=== PATIENT | female | born 1930 | race Caucasian/White ===

== ENCOUNTER 2016-11-09 15:54 | Inpatient (IN) | payer MEDICARE, BC ==
[2016-11-09] MEDS ORDERED: Sodium Chloride 0.9% 1,000 ML IV ONE (16:09)
[2016-11-09] MEDS ORDERED: Sodium Chloride 0.9% 1,000 ML IV SCH (17:45)
[2016-11-09] MEDS ORDERED: Morphine 2 MG/ML Syringe IVPUSH ONE (18:07)
[2016-11-09] MEDS ORDERED: Potassium Chloride 20 MEQ Tab.ER PO ONE (18:07)
[2016-11-09] MEDS ORDERED: Furosemide 40 MG/4 ML VIAL IVPUSH STA (18:11)
--- NOTE | 2016-11-09 19:19 | EDM.PDOC ---
ED HPI GI/ABDOMINAL - General Chief Complaint: Abdominal Pain Stated Complaint: INFECTION Time Seen by Provider: 11/09/16 15:55 Source: Reports: Patient, Family History Limitations: Reports: Physical impairment, Other (abd.pain) - History of Present Illness INITIAL COMMENTS - FREE TEXT/NARRATIVE: 86 years old w f came the ed due to sudden onset of abdominal pain, located at her mid R abdomen. Pt was seen in the clinic and was sent to the ED because her WBC was elevated. Pt is a poor historian. She has an essential tremor, which was diagnosed a year ago. She as diarrhea with loose stool in the past few days. 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 Symptom Onset Date: 11/09/16 Symptom Onset Time: 08:00 Timing/Duration: Reports: Hour(s): Location: RLQ Quality: Reports: ache, burning, cramping Severity: moderate Improves with: Reports: lying down Worsens with: Reports: urinating, palpation Context: Reports: other (unknown) Associated Symptoms (-Female): Reports: diarrhea, fever/chills, loss of appetite, malaise - Related Data Allergies/ADRs: Allergies Allergy/AdvReac Type Severity Reaction Status Date / Time allopurinol Allergy Anaphylactic Verified 11/09/16 16:36 Shock atorvastatin calcium Allergy Bronchospas Verified 11/09/16 16:36 [From Lipitor] ms cyclobenzaprine HCl Allergy Cannot Verified 11/09/16 16:36 [From Flexeril] Remember doxycycline Allergy Cannot Verified 11/09/16 16:36 Remember indomethacin Allergy Hives Verified 11/09/16 16:36 lisinopril Allergy Hives Verified 11/09/16 16:36 medium chain triglycerides AdvReac Unknown Cannot Verified 11/09/16 16:36 [From Lipisorb] Remember nutritional AdvReac Unknown Cannot Verified 11/09/16 16:36 supplement,special form Remember [From Lipisorb] Home Meds: Home Meds Furosemide [Lasix] 20 mg PO DAILY 12/09/14 [History] Hypromellose [Artificial Tears] 1 drop OP DAILY PRN 12/09/14 [History] Levothyroxine [Synthroid] 50 mcg PO ACBREAKFAST 12/09/14 [History] Metoprolol Succinate [Toprol Xl] 100 mg PO DAILY 12/09/14 [History] Ondansetron [Zofran ODT] 4 mg PO TID PRN 12/09/14 [History] Pantoprazole [Protonix] 40 mg PO 0600 #30 tab.cr 12/12/14 [Rx] Metoclopramide [Reglan] 5 mg PO DAILY PRN 05/13/15 [History] Aspirin [Halfprin] 81 mg PO DAILY 05/14/15 [History] Furosemide [Lasix] 20 mg PO DAILY PRN 11/10/16 [History] Uric Acid Complex 1 cap PO DAILY 11/10/16 [History] Past Medical History HEENT History: Reports: Impaired vision Cardiovascular History: Reports: High cholesterol [employer]PER History: Reports: Endocrine/Metabolic History: Reports: Hyperthyroidism Social & Family History - Tobacco Use Smoking Status *Q: Never Smoker Years of Tobacco use: 30 Used Tobacco, but Quit: Yes Month Tobacco Last Used: Aug Second Hand Smoke Exposure: Yes - Caffeine Use Caffeine Use: Reports: Coffee, Tea - Alcohol Use Days Per Week of Alcohol Use: 1 Number of Drinks Per Day: 1 Total Drinks Per Week: 1 - Recreational Drug Use Recreational Drug Use: No ED ROS GENERAL - Review of Systems Review Of Systems: Unable To Obtain ED EXAM, GI/ABD - Physical Exam Exam: See Below Exam Limited By: Physical impairment General Appearance: alert, WD/WN, moderate distress Eyes: bilateral: normal appearance Ears: normal external exam, normal canal, hearing grossly normal Nose: normal inspection, normal mucosa, no blood Throat/Mouth: Normal lips, Other (dry mucosal membrane) Head: atraumatic, normocephalic Neck: normal inspection, supple, non-tender Respiratory/Chest: no respiratory distress, lungs clear, normal breath sounds, no accessory muscle use, chest non-tender Cardiovascular: normal peripheral pulses, regular rate, rhythm, no edema GI/Abdominal: tenderness (R ant abd.), guarding (Female) Exam: Deferred Rectal (Female) Exam: Deferred Back Exam: normal inspection, full range of motion Extremities: normal inspection Neurological: alert, oriented, CN II-XII intact Psychiatric: normal affect, normal mood Skin Exam: Warm, Dry, Intact EKG INTERPRETATION EKG Date: 11/09/16 Time: 19:30 Rhythm: NSR Rate (beats/min): 91 Beeler: LAD-left axis deviation P-wave: present QRS: wide ST-T: normal QT: normal Comparison: NA - no prior EKG EKG Interpretation Comments: ventricular paced rhythm Course - Vital Signs Text/Narrative:: 86 years old w f came the ed due to sudden onset of abdominal pain, located at her mid R abdomen. Pt was seen in the clinic and was sent to the ED because her WBC was elevated. No cough. No SOB. Pt is a poor historian. She has an essential tremor, which was diagnosed a year ago. She as diarrhea with loose stool in the past few days. 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 PE: Abd, pain to R ant abd. Essential tremor, Dehydration. Labs: UTI, WBC 33K Lactic acid 3.5 Imaging: Please see reprot above Impression: Dehydration, Leucocytosis, UTI, abd. pain, septic picture (urosepsis ) Tx: NS, Abx (levoquin and Vaco), Morphine sulfate, Reexam: Improved Consultation: Dr. Gonzalez accepted the pt for admission Last Recorded V/S: Last Vital Signs Temp 36.8 C 11/10/16 08:40 Pulse 89 11/10/16 11:21 Resp 18 11/10/16 08:40 BP 146/67 H 11/10/16 11:21 Pulse Ox 96 11/10/16 08:40 - Orders/Labs/Meds Orders: Active Orders 24 hr Category Date Time Status Sodium Chloride 0.9% [Normal Saline] 1,000 ml Med 11/09/16 17:45 Active IV ASDIRECTED Medication Orders Sodium Chloride (Normal Saline) 1,000 mls @ 999 mls/hr IV ASDIRECTED [facility] Last Admin: 11/09/16 17:15 Dose: 999 mls/hr Sodium Chloride (Normal Saline) 250 mls @ 100 mls/hr IV ASDIRECTED [facility] Last Admin: 11/09/16 19:46 Dose: 100 mls/hr Sodium Chloride (Normal Saline) 1,000 mls @ 125 mls/hr IV ASDIRECTED [facility] Last Admin: 11/10/16 05:25 Dose: 125 mls/hr Infusion: 11/10/16 05:02 Dose: 125 mls/hr Admin: 11/09/16 21:02 Dose: 125 mls/hr Levofloxacin/Dextrose 250 mg/ (Premix) 50 mls @ 50 mls/hr IV Q24H [facility] Ketorolac Tromethamine (Toradol) 15 mg IVPUSH Q6H PRN PRN Reason: Abdominal Pain Stop: 11/15/16 09:49 Levothyroxine Sodium (Synthroid) 50 mcg PO 0600 [facility] Last Admin: 11/10/16 11:21 Dose: 50 mcg Metoprolol Succinate (Toprol Xl) 100 mg PO DAILY [facility] Last Admin: 11/10/16 11:21 Dose: 100 mg Morphine Sulfate (Morphine) 1 mg IVPUSH Q2H PRN PRN Reason: Pain (severe 7-10) Last Admin: 11/10/16 05:44 Dose: 1 mg Admin: 11/10/16 01:57 Dose: 1 mg Non-Formulary Medication (Hypromellose [Artificial Tears]) 1 drop OP DAILY PRN PRN Reason: dry eyes Ondansetron HCl (Zofran) 4 mg IV Q4H PRN PRN Reason: Nausea/Vomiting Last Admin: 11/10/16 08:37 Dose: 4 mg Pantoprazole Sodium (Protonix) 40 mg PO 0600 [facility] Last Admin: 11/10/16 11:21 Dose: 40 mg Sodium Chloride (Saline Flush) 10 ml FLUSH ASDIRECTED PRN PRN Reason: Keep Vein Open Labs: Laboratory Tests 11/09/16 11/09/16 11/09/16 Range/Units 16:25 16:25 16:25 WBC 33.0 H* (4.5-12.0) X10-3/uL RBC 3.80 (3.23-5.20) x10(6)uL Hgb 11.6 (11.5-15.5) g/dL Hct 34.1 (30.0-51.3) % MCV 90.0 (80-96) fL MCH 30.6 (27.7-33.6) pg MCHC 34.0 (32.2-35.4) g/dL RDW 13.5 (11.5-15.5) % Plt Count 156 (125-369) X10(3)uL MPV 10.0 (7.4-10.4) fL Add Manual Diff Yes Neutrophils % (Manual) 90 H (46-82) % Band Neutrophils % 2 (0-6) % Lymphocytes % (Manual) 7 L (13-37) % Monocytes % (Manual) 1 L (4-12) % PT 11.6 H (8.7-11.1) INR 1.15 H (0.89-1.13) Sodium 130 L D (135-145) mmol/L Potassium 3.2 L (3.5-5.3) mmol/L Chloride 95 L D (100-110) mmol/L Carbon Dioxide 23 (23-29) mmol/L BUN 36 H (8-23) mg/dL Creatinine 1.9 H (0.6-1.3) mg/dL Est Cr Clr Drug Dosing 7.81 mL/min Estimated GFR (MDRD) 25 L (>60) BUN/Creatinine Ratio 18.9 (9-20) Glucose 141 H (80-116) mg/dL Lactic Acid (0.5-2.2) mmol/L Calcium 8.6 (8.6-10.2) mg/dL Total Bilirubin 1.2 (0.1-1.3) mg/dL Direct Bilirubin 0.3 H (0.1-0.2) mg/dL AST 27 D (5-27) IU/L ALT 12 L D (14-26) IU/L Alkaline Phosphatase 62 (56-112) IU/L B-Natriuretic Peptide (0-100) pg/mL Total Protein 6.4 (6.0-8.0) g/dL Albumin 3.7 (3.2-4.6) g/dL Amylase 46 (28-100) U/L Urine Color (YELLOW) Urine Appearance (CLEAR) Urine pH (5.0-6.5) Ur Specific [place] (1.010-1.025) Urine Protein (NEGATIVE) mg/dL Urine Glucose (UA) (NEGATIVE) mg/dL Urine Ketones (NEGATIVE) mg/dL Urine Occult Blood (NEGATIVE) Urine Nitrite (NEGATIVE) Urine Bilirubin (NEGATIVE) Urine Urobilinogen (NEGATIVE) mg/dL Ur Leukocyte Esterase (NEGATIVE) Urine RBC (0) Urine WBC (0) Ur Squamous Epith Cells (NS,R,O) Urine Bacteria (NS) 11/09/16 11/09/16 11/09/16 Range/Units 16:25 18:05 18:30 WBC (4.5-12.0) X10-3/uL RBC (3.23-5.20) x10(6)uL Hgb (11.5-15.5) g/dL Hct (30.0-51.3) % MCV (80-96) fL MCH (27.7-33.6) pg MCHC (32.2-35.4) g/dL RDW (11.5-15.5) % Plt Count (125-369) X10(3)uL MPV (7.4-10.4) fL Add Manual Diff Neutrophils % (Manual) (46-82) % Band Neutrophils % (0-6) % Lymphocytes % (Manual) (13-37) % Monocytes % (Manual) (4-12) % PT (8.7-11.1) INR (0.89-1.13) Sodium (135-145) mmol/L Potassium (3.5-5.3) mmol/L Chloride (100-110) mmol/L Carbon Dioxide (23-29) mmol/L BUN (8-23) mg/dL Creatinine (0.6-1.3) mg/dL Est Cr Clr Drug Dosing mL/min Estimated GFR (MDRD) (>60) BUN/Creatinine Ratio (9-20) Glucose (80-116) mg/dL Lactic Acid 3.5 H (0.5-2.2) mmol/L Calcium (8.6-10.2) mg/dL Total Bilirubin (0.1-1.3) mg/dL Direct Bilirubin (0.1-0.2) mg/dL AST (5-27) IU/L ALT (14-26) IU/L Alkaline Phosphatase (56-112) IU/L B-Natriuretic Peptide 277 H (0-100) pg/mL Total Protein (6.0-8.0) g/dL Albumin (3.2-4.6) g/dL Amylase (28-100) U/L Urine Color Yellow (YELLOW) Urine Appearance Slightly cloudy (CLEAR) Urine pH 5.0 (5.0-6.5) Ur Specific [place] 1.005 L (1.010-1.025) Urine Protein Negative (NEGATIVE) mg/dL Urine Glucose (UA) Normal (NEGATIVE) mg/dL Urine Ketones Negative (NEGATIVE) mg/dL Urine Occult Blood Negative (NEGATIVE) Urine Nitrite Negative (NEGATIVE) Urine Bilirubin Negative (NEGATIVE) Urine Urobilinogen Normal (NEGATIVE) mg/dL Ur Leukocyte Esterase Moderate H (NEGATIVE) Urine RBC 0-5 (0) Urine WBC 5-10 (0) Ur Squamous Epith Cells Few H (NS,R,O) Urine Bacteria Few H (NS) Meds: Medications Generic Name Dose Route Start Last Admin Trade Name Hawkq PRN Reason Stop Dose Admin Sodium Chloride 1,000 mls @ 999 mls/hr 11/09/16 17:45 11/09/16 17:15 Normal Saline IV 999 mls/hr ASDIRECTED RENZO Administration Sodium Chloride 250 mls @ 100 mls/hr 11/09/16 19:45 11/09/16 19:46 Normal Saline IV 100 mls/hr ASDIRECTED RENZO Administration Sodium Chloride 1,000 mls @ 125 mls/hr 11/09/16 19:45 11/10/16 05:25 Normal Saline IV 125 mls/hr ASDIRECTED RENZO Administration Levofloxacin/Dextrose 250 mg/ 50 mls @ 50 mls/hr 11/10/16 20:00 Premix IV Q24H RENZO Ketorolac Tromethamine 15 mg 11/10/16 09:49 Toradol IVPUSH 11/15/16 09:49 Q6H PRN Abdominal Pain Levothyroxine Sodium 50 mcg 11/10/16 10:30 11/10/16 11:21 Synthroid PO 50 mcg 0600 RENZO Administration Metoprolol Succinate 100 mg 11/10/16 10:30 11/10/16 11:21 Toprol Xl PO 100 mg DAILY RENZO Administration Morphine Sulfate 1 mg 11/09/16 19:39 11/10/16 05:44 Morphine IVPUSH 1 mg Q2H PRN Administration Pain (severe 7-10) Non-Formulary Medication 1 drop 11/10/16 09:51 Hypromellose [Artificial Tears] OP DAILY PRN dry eyes Ondansetron HCl 4 mg 11/09/16 19:39 11/10/16 08:37 Zofran IV 4 mg Q4H PRN Administration Nausea/Vomiting Pantoprazole Sodium 40 mg 11/10/16 10:30 11/10/16 11:21 Protonix PO 40 mg 0600 RENZO Administration Sodium Chloride 10 ml 11/09/16 19:39 Saline Flush FLUSH ASDIRECTED PRN Keep Vein Open Discontinued Medications Generic Name Dose Route Start Last Admin Trade Name Isaiah PRN Reason Stop Dose Admin Furosemide 20 mg 11/09/16 18:11 11/09/16 18:21 Lasix IVPUSH 11/09/16 18:12 20 mg DAILY STA Administration Sodium Chloride 1,000 mls @ 999 mls/hr 11/09/16 16:09 11/09/16 17:39 Normal Saline IV 11/09/16 17:09 Not Given .BOLUS ONE Levofloxacin/Dextrose 500 mg/ 100 mls @ 100 mls/hr 11/09/16 19:45 11/09/16 19 :49 Premix IV 100 mls/hr Q24H RENZO Administration Vancomycin HCl 1 gm/ Sodium 250 mls @ 167 mls/hr 11/09/16 20:00 11/09/16 21: 03 Chloride IV 11/09/16 21:29 167 mls/hr ONETIME ONE Administration Ceftriaxone Sodium 1,000 mg/ 50 mls @ 200 mls/hr 11/10/16 10:00 11/10/16 11: 07 Sodium Chloride IV Not Given Q24H RENZO Morphine Sulfate 2 mg 11/09/16 18:07 11/09/16 18:17 Morphine IVPUSH 11/09/16 18:08 2 mg ONETIME ONE Administration Omeprazole 40 mg 11/10/16 10:00 Omeprazole PO 0600 RENZO Omeprazole 40 mg 11/10/16 10:00 Omeprazole PO 0600 RENZO Potassium Chloride 40 meq 11/09/16 18:07 11/09/16 18:24 Klor-Con M20 PO 11/09/16 18:08 40 meq ONETIME ONE Administration Vancomycin HCl Confirm 11/09/16 20:58 11/09/16 21:13 Vancocin Administered 11/09/16 20:59 Not Given Dose 1 gm .ROUTE .STK-MED ONE Departure - Departure Time of Disposition: 23:00 Disposition: Admitted As Inpatient 67 Condition: fair Clinical Impression: UTI (urinary tract infection) Qualifiers: Urinary tract infection type: acute cystitis Hematuria presence: without hematuria Qualified Code(s): N30.00 - Acute cystitis without hematuria Sepsis Qualifiers: Sepsis type: sepsis due to unspecified organism Qualified Code(s): A41.9 - Sepsis, unspecified organism Abdominal pain Qualifiers: Abdominal location: right upper quadrant Qualified Code(s): R10.11 - Right upper quadrant pain - My Orders Last 24 Hours: My Active Orders 11/09/16 17:45 Sodium Chloride 0.9% [Normal Saline] 1,000 ml IV ASDIRECTED - Assessment/Plan Last 24 Hours: My Active Orders 11/09/16 17:45 Sodium Chloride 0.9% [Normal Saline] 1,000 ml IV ASDIRECTED
[2016-11-09] MEDS ORDERED: Ondansetron 4 MG/2 ML SDV IV PRN (19:39)
[2016-11-09] MEDS ORDERED: Sodium Chloride 0.9% 10 ML Syringe FLUSH PRN (19:39)
[2016-11-09] MEDS ORDERED: Sodium Chloride 0.9% 250 ML IV SCH (19:45)
[2016-11-09] MEDS ORDERED: Levofloxacin/Dextrose 5%-Water 500 MG in Premix Bag 1 BAG IV SCH (19:45)
[2016-11-09] MEDS: Sodium Chloride 0.9% 1,000 ML IV SCH (21:02)
[2016-11-09] MEDS: Vancomycin 1 GM AdvVial ONE ×2 (21:03→21:13)
[2016-11-10] MEDS: Morphine 2 MG/ML Syringe IVPUSH PRN ×2 (01:57→05:44)
[2016-11-10] MEDS: Sodium Chloride 0.9% 1,000 ML IV SCH (05:25)
--- NOTE | 2016-11-10 08:53 | PCM.HP ---
H&P History of Present Illness - General Date of Service: 11/10/16 Admit Problem/Dx: Admission Diagnosis/Problem Admission Diagnosis/Problem Abdominal pain - History of Present Illness Initial Comments - Free Text/Narative: 86-year-old female admitted from the clinic yesterday because of abdominal pain. Pain started 2-3 days ago from the right flank and upper quadrant. As stated the nausea but with no radiation. In the clinic she was noted to be slightly dehydrated with worsening creatinine function at 1.9 from 1.5 baseline. She also had a white cell count of 30,000. A CT done showed possible colitis. She is admitted for pain control and rehydration. This morning she was some improvement of her symptoms but still has nausea. She denies that G. dysuria or frequency of urination diarrhea or constipation. She has a history of hypertension, A. fib, hypothyroidism previously stable. RLQ Pain Score (Numeric/FACES): 1 RUQ abdomen Pain Score (Numeric/FACES): 2 - Related Data Allergies/Adverse Reactions: Allergies Allergy/AdvReac Type Severity Reaction Status Date / Time allopurinol Allergy Anaphylactic Verified 11/09/16 16:36 Shock atorvastatin calcium Allergy Bronchospas Verified 11/09/16 16:36 [From Lipitor] ms cyclobenzaprine HCl Allergy Cannot Verified 11/09/16 16:36 [From Flexeril] Remember doxycycline Allergy Cannot Verified 11/09/16 16:36 Remember indomethacin Allergy Hives Verified 11/09/16 16:36 lisinopril Allergy Hives Verified 11/09/16 16:36 medium chain triglycerides AdvReac Unknown Cannot Verified 11/09/16 16:36 [From Lipisorb] Remember nutritional AdvReac Unknown Cannot Verified 11/09/16 16:36 supplement,special form Remember [From Lipisorb] Home Medications: Home Meds Furosemide [Lasix] 20 mg PO DAILY 12/09/14 [History] Hypromellose [Artificial Tears] 1 drop OP DAILY PRN 12/09/14 [History] Levothyroxine [Synthroid] 50 mcg PO ACBREAKFAST 12/09/14 [History] Metoprolol Succinate [Toprol Xl] 100 mg PO DAILY 12/09/14 [History] Ondansetron [Zofran ODT] 4 mg PO TID PRN 12/09/14 [History] Pantoprazole [Protonix] 40 mg PO 0600 #30 tab.cr 12/12/14 [Rx] Metoclopramide [Reglan] 5 mg PO DAILY PRN 05/13/15 [History] Aspirin [Halfprin] 81 mg PO DAILY 05/14/15 [History] Furosemide [Lasix] 20 mg PO DAILY PRN 11/10/16 [History] Uric Acid Complex 1 cap PO DAILY 11/10/16 [History] Past Medical History HEENT History: Reports: Impaired vision 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 Cardiovascular History: Reports: High cholesterol Respiratory History: Reports: Pneumonia, recurrent Gastrointestinal History: Reports: Colon polyp, Other (see below) Other Gastrointestinal History: COLON SURGERY FOR RUPTURED POLOP- HAD TO STRETCH COLON WHERE HAD SURGERY HAD X3 Genitourinary History: Reports: Pyelonephritis, UTI, recurrent 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: Musculoskeletal History: Reports: Arthritis, Back pain, chronic, Gout Neurological History: Reports: Concussion, Head trauma Endocrine/Metabolic History: Reports: Hyperthyroidism Dermatologic History: Reports: None - Infectious Disease History Infectious Disease History: Reports: Other (see below) Other Infectious Disease History: PATIENT IS UNSURE - Past Surgical History HEENT Surgical History: Reports: Adenoidectomy, Cataract surgery, Detached retina, Tonsillectomy, Other (see below) Other HEENT Surgeries/Procedures: STONE REMOVED FROM GLAND IN NECK Cardiovascular Surgical History: Reports: Pacer Respiratory Surgical History: Reports: None GI Surgical History: Reports: Appendectomy, Cholecystectomy, Colon, Colonoscopy , Lysis of adhesions Female Surgical History: Reports: Hysterectomy, Salpingo-oophorectomy Endocrine Surgical History: Reports: None Neurological Surgical History: Reports: None Musculoskeletal Surgical History: Reports: None Dermatological Surgical History: Reports: None Social & Family History - Family History Musculoskeletal: Reports: None Psychiatric: Reports: Schizophrenia Hematologic: Reports: None Oncologic: Reports: Leukemia - Tobacco Use Smoking Status *Q: Never Smoker Years of Tobacco use: 30 Packs/Tins Daily: 1 Used Tobacco, but Quit: Yes Month Tobacco Last Used: Aug Second Hand Smoke Exposure: Yes - Caffeine Use Caffeine Use: Reports: Coffee, Tea - Alcohol Use Days Per Week of Alcohol Use: 1 Number of Drinks Per Day: 1 Total Drinks Per Week: 1 - Recreational Drug Use Recreational Drug Use: No H&P Review of Systems - Review of Systems: Review Of Systems: ROS reveals no pertinent complaints other than HPI. Exam - Exam Exam: See Below - Vital Signs Vital Signs: Last Vital Signs Temp 98.3 F 11/10/16 08:40 Pulse 89 11/10/16 08:40 Resp 18 11/10/16 08:40 BP 143/67 H 11/10/16 08:40 Pulse Ox 96 11/10/16 08:40 Weight: 70.035 kg - Exam General: alert, oriented, 4 HEENT: PERRLA, Hearing intact, Mucosa moist & pink, Nares patent, Normal nasal septum, Posterior pharynx clear, Conjunctiva clear, EOMI, EACs clear, TMs clear Neck: supple, trachea midline, 2 Lungs: Clear to auscultation, Normal respiratory effort Cardiovascular: regular rate, regular rhythm Abdomen: tenderness (Right lumbar region) (Female) Exam: Deferred Rectal (Female) Exam: Deferred Back Exam: normal inspection, full range of motion, NT Extremities: 3, normal inspection, 10 Skin: warm, dry, intact Neurological: cranial nerves intact, reflexes equal bilateral Neuro Extensive - Mental Status: alert, oriented x3, normal mood/affect, normal cognition Neuro Extensive - Motor, Sensory, Reflexes: CN II-XII intact, normal gait, normal reflexes Psychiatric: alert, normal affect, normal mood - Patient Data Result Diagrams: 11/10/16 09:10 11/10/16 09:10 Tuan Results last 24 hrs: Microbiology 11/09/16 19:45 Anaerobic Blood Culture - Final Blood - Venous - Lab Draw *Q Meaningful Use (ADM) - VTE *Q VTE Criteria *Q: - Stroke *Q Stroke Criteria *Q: - AMI *Q AMI Criteria *Q: - Problem List (1) Abdominal pain SNOMED Code(s): 80145585 ICD Code: R10.9 - UNSPECIFIED ABDOMINAL PAIN Status: Acute Current Visit : Yes Qualifiers: Abdominal location: right upper quadrant Qualified Code(s): R10.11 - Right upper quadrant pain (2) Bacteria in urine SNOMED Code(s): 85081143 ICD Code: R82.71 - BACTERIURIA Status: Acute Current Visit: Yes (3) Nausea SNOMED Code(s): 536924423 ICD Code: R11.0 - NAUSEA Status: Acute Current Visit: Yes (4) Colitis SNOMED Code(s): 077601539 ICD Code: K52.9 - NONINFECTIVE GASTROENTERITIS AND COLITIS, UNSPECIFIED Status: Acute Current Visit: Yes (5) HTN (hypertension) SNOMED Code(s): 90136300 ICD Code: I10 - ESSENTIAL (PRIMARY) HYPERTENSION Status: Chronic Current Visit: Yes Qualifiers: Hypertension type: essential hypertension Qualified Code(s): I10 - Essential (primary) hypertension (6) Afib SNOMED Code(s): 82833985 ICD Code: I48.91 - UNSPECIFIED ATRIAL FIBRILLATION Status: Chronic Current Visit: Yes Qualifiers: Atrial fibrillation type: chronic Qualified Code(s): I48.2 - Chronic atrial fibrillation Problem List Initiated/Reviewed/Updated: Yes Orders Last 24hrs: Active Orders 24 hr Category Date Time Status Patient Status [ADT] Routine ADT 11/09/16 19:39 Active Oxygen Therapy [RC] PRN Care 11/09/16 19:39 Active Up With Assistance [RC] ASDIRECTED Care 11/09/16 19:39 Active VTE/DVT Education [RC] Per Unit Routine Care 11/09/16 19:39 Active Vital Signs [RC] 00,04,08,12,16,20 Care 11/09/16 19:39 Active CULTURE BLOOD [BC] Urgent Lab 11/09/16 18:05 Results CULTURE BLOOD [BC] Urgent Lab 11/09/16 19:45 Results Levofloxacin/Dextrose 5%-Water [Levaquin in D5W 500 MG/ Med 11/09/16 19:45 Active 100 ML] 500 mg Premix Bag 1 bag IV Q24H Morphine Med 11/09/16 19:39 Active 1 mg IVPUSH Q2H PRN Ondansetron [Zofran] Med 11/09/16 19:39 Active 4 mg IV Q4H PRN Sodium Chloride 0.9% [Normal Saline] 1,000 ml Med 11/09/16 19:45 Active IV ASDIRECTED Sodium Chloride 0.9% [Normal Saline] 250 ml Med 11/09/16 19:45 Active IV ASDIRECTED Sodium Chloride 0.9% [Saline Flush] Med 11/09/16 19:39 Active 10 ml FLUSH ASDIRECTED PRN Blood Culture x2 Reflex Set [OM.PC] Urgent Oth 11/09/16 19:27 Ordered Peripheral IV Insertion Adult [OM.PC] Routine Oth 11/09/16 19:39 Ordered Resuscitation Status Routine Resus Stat 11/09/16 19:39 Ordered EKG 12 Lead [EK] Routine Ther 11/09/16 19:20 Ordered Medication Orders Sodium Chloride (Normal Saline) 1,000 mls @ 999 mls/hr IV ASDIRECTED [facility] Last Admin: 11/09/16 17:15 Dose: 999 mls/hr Levofloxacin/Dextrose 500 mg/ (Premix) 100 mls @ 100 mls/hr IV Q24H RENZO Last Admin: 11/09/16 19:49 Dose: 100 mls/hr Sodium Chloride (Normal Saline) 250 mls @ 100 mls/hr IV ASDIRECTED [facility] Last Admin: 11/09/16 19:46 Dose: 100 mls/hr Sodium Chloride (Normal Saline) 1,000 mls @ 125 mls/hr IV ASDIRECTED [facility] Last Admin: 11/10/16 05:25 Dose: 125 mls/hr Infusion: 11/10/16 05:02 Dose: 125 mls/hr Admin: 11/09/16 21:02 Dose: 125 mls/hr Morphine Sulfate (Morphine) 1 mg IVPUSH Q2H PRN PRN Reason: Pain (severe 7-10) Last Admin: 11/10/16 05:44 Dose: 1 mg Admin: 11/10/16 01:57 Dose: 1 mg Ondansetron HCl (Zofran) 4 mg IV Q4H PRN PRN Reason: Nausea/Vomiting Last Admin: 11/10/16 08:37 Dose: 4 mg Sodium Chloride (Saline Flush) 10 ml FLUSH ASDIRECTED PRN PRN Reason: Keep Vein Open Assessment/Plan Comment:: I will continue with gentle IV fluid fluid resuscitation. A white count is down to 24,000, which is slightly improved 1.6. After noon I will stop the IV fluids ,but we'll continue Zofran when necessary ketorolac IV as needed for pain and encourage her to eat and drink. I will give her Rocephin for the bacteria rule out pyelonepritis, and repeat some labs in morning possibly discharge and then
[2016-11-10] MEDS ORDERED: Ketorolac 15 MG/ML SDV IVPUSH PRN (09:49)
[2016-11-10] MEDS ORDERED: HYPROMELLOSE OP PRN (09:51)
[2016-11-10] MEDS ORDERED: Omeprazole 20 MG Cap.CR PO SCH (10:00)
[2016-11-10] MEDS ORDERED: Omeprazole 40 MG Cap.CR PO SCH (10:00)
[2016-11-10] MEDS ORDERED: cefTRIAXone 1,000 MG in Sodium Chloride 0.9% 50 ML IV SCH (10:00)
[2016-11-10] MEDS ORDERED: Metoprolol Succinate 100 MG Tab.ER PO SCH (10:30)
[2016-11-10] MEDS: Levothyroxine 50 MCG Tab PO SCH (11:21)
[2016-11-10] MEDS: Pantoprazole 40 MG Tab.CR PO SCH (11:21)
[2016-11-10] MEDS ORDERED: Polyvinyl Alcohol 1.4% Ophth Soln 15 ML Bottle EYEBOTH PRN (13:39)
[2016-11-10] MEDS ORDERED: Levofloxacin/Dextrose 5%-Water 250 MG in Premix Bag 1 BAG IV SCH (20:00)
[2016-11-10] MEDS ORDERED: Acetaminophen 325 MG Tab PO PRN (22:20)
[2016-11-11] MEDS: Pantoprazole 40 MG Tab.CR PO SCH (06:31)
[2016-11-11] MEDS: Levothyroxine 50 MCG Tab PO SCH (06:32)
--- NOTE | 2016-11-11 07:16 | PN ---
DATE SEEN: 11/11/2016 CHIEF COMPLAINT: Abdominal pain. HISTORY OF PRESENT ILLNESS: This is an 86-year-old female who was brought in yesterday because of abdominal pain. She slept well overnight. The pain has improved. She has no fever or cough. No urinary symptoms and nausea has also improved. REVIEW OF SYSTEMS: All other systems unremarkable. SOCIAL HISTORY: Lives alone. PHYSICAL EXAMINATION: VITAL SIGNS: Temperature 98.4, blood pressure is 112/55. ENT: Negative. CHEST: Clear. ABDOMEN: Soft with no tenderness to palpation. LABORATORY DATA: Pending. FINAL IMPRESSION: 1. Abdominal pain due to colitis. 2. Bacteriuria. 3. Acute on chronic renal failure. 4. Hypertension. 5. Atrial fibrillation. PLAN: My plan is to discharge her home today. I will let her go home on 250 mg of Levaquin to complete a course of 7 days. Follow up with PCP on Tuesday. Return to the ED or here with any worsening symptoms. /[id number] CHANDA/SAJAN
[2016-11-11 08:42] VITALS: BP 131/77
--- NOTE | 2016-11-11 23:34 | DISCH ---
DISCHARGE DATE: 11/11/2016 REASON FOR VISIT: 1. Colitis. 2. Urinary tract infection. 3. Hypertension. 4. Renal failure. DISCHARGE DIAGNOSES: 1. Colitis. 2. Bacteriuria. 3. Hypertension. 4. Acute on chronic renal failure. 5. History of atrial fibrillation. BRIEF HISTORY AND HOSPITAL COURSE: An 86-year-old female, seen at the clinic with fever, leukocytosis, and bacteria in the urine. She presented with no urinary symptoms, but had abdominal pain on the right upper quadrant. CT showed some colitis, but nothing else was significant. She stated that she had cholecystectomy before. She was given IV fluids, creatinine improved, she was also started on Levaquin 250 mg a day. That seemed to help her symptoms. Zofran was used symptomatically and she is ready to go home today. DISCHARGE MEDICATIONS: 1. Levaquin 250 mg daily for 5 days. 2. Levothyroxine 50 mcg daily. 3. Metoprolol 100 mg daily. 4. Acetaminophen p.r.n. 5. Pantoprazole 40 mg a day. FOLLOW UP: To see Dr. Rahman next week on Tuesday, return to the ED with any worsening symptoms. I spent more than 35 minutes in discharge of the patient. /[id number] CHANDA/SAJAN
== END 2016-11-11 10:00 | disposition home or self-care (01) | DRG 392 ==
LOC: FB.ED 15:54 → FB.MS 19:09 → OBSVTOIN 11-10 12:43
PROVIDERS: ADMIT Emergency Medicine; ATTEND Family Medicine
DX: K52.9 Noninfective gastroenteritis and colitis, unspecified (principal); N17.9 Acute kidney failure, unspecified; R82.71 Bacteriuria; I12.9 Hypertensive chronic kidney disease with stage 1 through stage 4 chronic kidney disease, or unspecified chronic kidney disease; E03.9 Hypothyroidism, unspecified; G25.0 Essential tremor; Z87.891 Personal history of nicotine dependence; I48.91 Unspecified atrial fibrillation; N18.9 Chronic kidney disease, unspecified; E86.0 Dehydration; M10.9 Gout, unspecified; M19.90 Unspecified osteoarthritis, unspecified site; M54.9 Dorsalgia, unspecified; G89.29 Other chronic pain; Z87.440 Personal history of urinary (tract) infections; Z87.01 Personal history of pneumonia (recurrent); H54.7 Unspecified visual loss; Z79.82 Long term (current) use of aspirin; Z88.8 Allergy status to other drugs, medicaments and biological substances; E78.00 Pure hypercholesterolemia, unspecified; H54.42 Blindness, left eye, normal vision right eye; K43.9 Ventral hernia without obstruction or gangrene; Z90.710 Acquired absence of both cervix and uterus; Z90.49 Acquired absence of other specified parts of digestive tract; Z98.890 Other specified postprocedural states; I71.4 Abdominal aortic aneurysm, without rupture
CPT/HCPCS: 36415 ×2; 74176; 80048 ×2; 80076; 81001; 82150; 83605; 83880; 85025 ×2; 85610; 87040 ×2; 93005; 96361 ×3; 96365; 96375 ×3; 96376; 99284; A9270 ×4; G0378 ×2; J1940; J1956; J2270 ×3; J2405; J3370; J7040 ×3; J7050 ×2; 80053; 96374; 99285

== ENCOUNTER 2019-03-15 07:24 | Day surgery (SDC) | payer MEDICARE, BC ==
[2019-03-15] MEDS ORDERED: Lidocaine 1% PF 2 ML SDV INJECT ONE (07:25)
[2019-03-15] MEDS ORDERED: Acetaminophen 1,000 MG/100 ML Infusion Bottle IV ONE (07:25)
[2019-03-15] MEDS ORDERED: Propofol 200 MG/20 ML SDV IV ONE (07:25)
[2019-03-15] MEDS ORDERED: Lactated Ringers 1,000 ML IV SCH (07:30)
--- NOTE | 2019-03-15 09:32 | PCM.OPNOTE ---
- General Post-Op/Procedure Note Date of Surgery/Procedure: 03/15/19 Operative Procedure(s): Colonoscopy Findings: Melanosis Coli Pre Op Diagnosis: Rectal pain, change in bowel habits Post-Op Diagnosis: Same Anesthesia Technique: MAC Primary Surgeon: Shantanu Curtis Complications: None Condition: Good
--- NOTE | 2019-03-15 09:33 | PCM.HPR ---
H & P Addendum review - H & P Addendum Review Date of Original H & P: 03/13/19 Date Reviewed: 03/15/19 Time Reviewed: 09:00 Patient was Examined: No Changes
[2019-03-15 09:42] VITALS: PULSE 78
[2019-03-15 12:50] VITALS: BP 118/78
--- NOTE | 2019-03-15 14:02 | OR ---
DATE OF OPERATION: 03/15/2019 SURGEON: Shantanu Curtis MD PREOPERATIVE DIAGNOSES: 1. Rectal pain. 2. Change in bowel habits. 3. 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 PROCEDURE: Colonoscopy. ANESTHESIA: IV sedation. PROCEDURE IN DETAIL: The patient was brought to the procedure room, where she was placed on her left side and IV sedation administered. Digital rectal exam was performed, which was normal. The colonoscope was inserted and advanced to the level of the cecum without difficulty. Cecal position was confirmed by identifying the appendiceal lumen and ileocecal valve. Prep was good and surfaces were well visualized. 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 All segments of the colon and rectum otherwise appeared normal. Anastomosis appears normal and there was no stricture present. No source of the patient's pain was identified. The patient tolerated the procedure well and returned to recovery in stable condition. No further colon evaluation is necessary. /[id number] ROOPA/SAJAN
== END 2019-03-15 10:57 | disposition home or self-care (01) ==
LOC: FB.SDS 07:24
PROVIDERS: ATTEND Surgery
DX: K62.89 Other specified diseases of anus and rectum (principal); K63.89 Other specified diseases of intestine; K59.09 Other constipation; I10 Essential (primary) hypertension; I25.10 Atherosclerotic heart disease of native coronary artery without angina pectoris; I48.91 Unspecified atrial fibrillation; I47.1 Supraventricular tachycardia; K21.9 Gastro-esophageal reflux disease without esophagitis; M19.90 Unspecified osteoarthritis, unspecified site; E07.9 Disorder of thyroid, unspecified; Z90.49 Acquired absence of other specified parts of digestive tract; Z87.19 Personal history of other diseases of the digestive system; Z87.891 Personal history of nicotine dependence; Z88.1 Allergy status to other antibiotic agents; Z88.8 Allergy status to other drugs, medicaments and biological substances; Z79.01 Long term (current) use of anticoagulants; Z79.890 Hormone replacement therapy; Z79.899 Other long term (current) drug therapy
CPT/HCPCS: 00811; 45378; J0131; J2001; J2704; J7120

== ENCOUNTER 2019-04-28 19:26 | Emergency (ER) | payer MEDICARE, BC ==
--- NOTE | 2019-04-28 19:44 | EDM.PDOC ---
ED HPI GENERAL MEDICAL PROBLEM - General Chief Complaint: Respiratory Problem Stated Complaint: low 02 sat at [facility] this pm Time Seen by Provider: 04/28/19 19:31 Source of Information: Reports: Patient, Family, Old Records History Limitations: Reports: No Limitations - History of Present Illness INITIAL COMMENTS - FREE TEXT/NARRATIVE: Neda is a resident of [facility] who was diagnosed with CAP yesterday at the Clinic. She was dispensed antibx and managed as an OP. This PM, reported fever to 103 deg F, and low 02 sats. There has been some productive coughing, but no smooth SOB. Upon arrival, temp 99.4 deg F and 02 sat 89% on RA. She does not endorse chest pain, SOB, fevers, chills or sweats. She has been med compliant. Patient is a poor historian. - Related Data Allergies Allergy/AdvReac Type Severity Reaction Status Date / Time allopurinol Allergy Anaphylactic Verified 03/15/19 07:56 Shock atorvastatin calcium Allergy Bronchospas Verified 03/15/19 07:56 [From Lipitor] ms cyclobenzaprine HCl Allergy Cannot Verified 03/15/19 07:56 [From Flexeril] Remember doxycycline Allergy Cannot Verified 03/15/19 07:56 Remember indomethacin Allergy Hives Verified 03/15/19 07:56 lisinopril Allergy Hives Verified 03/15/19 07:56 medium chain triglycerides AdvReac Unknown Cannot Verified 03/15/19 07:56 [From Lipisorb] Remember nutritional AdvReac Unknown Cannot Verified 03/15/19 07:56 supplement,special form Remember [From Lipisorb] Home Meds: Home Meds Levothyroxine [Synthroid] 50 mcg PO ACBREAKFAST 12/09/14 [History] Metoprolol Succinate [Toprol Xl] 100 mg PO DAILY 12/09/14 [History] Pantoprazole [ProTONIX] 40 mg PO 0600 #30 tab.cr 12/12/14 [Rx] Furosemide [Lasix] 20 mg PO DAILY 11/10/16 [History] Cholecalciferol (Vitamin D3) [Vitamin D3] 1 cap PO DAILY 03/14/19 [History] Cyanocobalamin (Vitamin B-12) [B-12] 1 tab PO DAILY 03/14/19 [History] Docusate Sodium [Stool Softener] 1 cap PO DAILY 03/14/19 [History] Febuxostat [Uloric] 1 tab PO DAILY 03/14/19 [History] Fluticasone Propionate [Flonase] 2 spray INH BID 03/14/19 [History] Morphine 1 tab PO BID 03/14/19 [History] Polyethylene Glycol 3350 [MiraLAX] 1 pack PO DAILY 03/14/19 [History] Polyvinyl Alcohol/Povidone [Artificial Tears Drops] 1 drop EYEBOTH BID 03/14/19 [History] Rivaroxaban [Xarelto] 1 tab PO DAILY 03/14/19 [History] fentaNYL [Duragesic] 1 patch TRDERM ASDIRECTED 03/14/19 [History] Past Medical History HEENT History: Reports: Impaired Vision 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 Cardiovascular History: Reports: Afib, CAD, High Cholesterol Respiratory History: Reports: Pneumonia, Recurrent Gastrointestinal History: Reports: Colon Polyp, Diverticulosis, Other (See Below ) Other Gastrointestinal History: COLON SURGERY FOR RUPTURED POLOP- HAD TO STRETCH COLON WHERE HAD SURGERY HAD X3 Genitourinary History: Reports: Pyelonephritis, UTI, Recurrent CONVEYANCER History: Reports: Musculoskeletal History: Reports: Arthritis, Back Pain, Chronic, Gout, Other ( See Below) Other Musculoskeletal History: RIGHT SCIATICA Neurological History: Reports: Concussion, Head Trauma Endocrine/Metabolic History: Reports: Hyperthyroidism Dermatologic History: Reports: None - Infectious Disease History Infectious Disease History: Reports: Other (See Below) Other Infectious Disease History: PATIENT IS UNSURE - Past Surgical History HEENT Surgical History: Reports: Adenoidectomy, Cataract Surgery, Detached Retina, Tonsillectomy, Other (See Below) Other HEENT Surgeries/Procedures: STONE REMOVED FROM GLAND IN NECK Cardiovascular Surgical History: Reports: Pacer Respiratory Surgical History: Reports: None GI Surgical History: Reports: Appendectomy, Cholecystectomy, Colon, Colonoscopy , Lysis of Adhesions Female Surgical History: Reports: Hysterectomy, Salpingo-Oophorectomy Endocrine Surgical History: Reports: None Neurological Surgical History: Reports: None Musculoskeletal Surgical History: Reports: None, ORIF, Other (See Below) Other Musculoskeletal Surgeries/Procedures:: R HIP FRACTURE ORIF Dermatological Surgical History: Reports: None Social & Family History - Family History Family Medical History: Noncontributory Musculoskeletal: Reports: None Psychiatric: Reports: Schizophrenia Hematologic: Reports: None Oncologic: Reports: Leukemia - Caffeine Use Caffeine Use: Reports: Coffee ED ROS GENERAL - Review of Systems Review Of Systems: Unable To Obtain ED EXAM, GENERAL - Physical Exam Exam: See Below Exam Limited By: Other (poor memory to recent events, chaparone did not accompany to Clinic visit) General Appearance: Alert, WD/WN, No Apparent Distress Eye Exam: Bilateral Eye: EOMI, Normal Inspection, PERRL Ears: Normal External Exam Nose: Normal Inspection Throat/Mouth: Normal Inspection, Normal Oropharynx Neck: Normal Inspection Respiratory/Chest: No Respiratory Distress, No Accessory Muscle Use, Chest Non- Tender, Rales (faint inspiratory L>R), Rhonchi (w cough) Cardiovascular: Regular Rate, Rhythm, No JVD, No Murmur GI/Abdominal: Normal Bowel Sounds, Soft, Non-Tender, No Organomegaly, No Distention, No Mass (Female) Exam: Deferred Rectal (Female) Exam: Deferred Back Exam: Normal Inspection Extremities: Normal Inspection Neurological: Alert, CN II-XII Intact, No Motor/Sensory Deficits, Memory Loss Recent Events Psychiatric: Normal Affect, Normal Mood Skin Exam: Warm, Dry, Intact, Normal Color Lymphatic: No Adenopathy Course - Vital Signs Text/Narrative:: I reviewed the chest x ray, noting no active infiltrates, heart normal size, pacemaker present. The CBC and BMP are baseline and satisfactory for age. A bronchitis is suspected. - Orders/Labs/Meds Orders: Active Orders 24 hr Category Date Time Status Chest 1V Frontal [CR] Stat Exams 04/28/19 19:38 Taken Labs: Laboratory Tests 04/28/19 04/28/19 Range/Units 19:50 19:50 WBC 10.9 (4.5-12.0) X10-3/uL RBC 3.79 (3.23-5.20) x10(6)uL Hgb 11.9 (11.5-15.5) g/dL Hct 34.7 (30.0-51.3) % MCV 91.5 (80-96) fL MCH 31.4 (27.7-33.6) pg MCHC 34.3 (32.2-35.4) g/dL RDW 13.3 (11.5-15.5) % Plt Count 152 (125-369) X10(3)uL MPV 9.4 (7.4-10.4) fL Neut % (Auto) 76.1 (46-82) % Lymph % (Auto) 12.6 L (13-37) % Pondera % (Auto) 8.8 (4-12) % Eos % (Auto) 2 (1.0-5.0) % Baso % (Auto) 1 (0-2) % Neut # (Auto) 8.2 (1.6-8.3) # Lymph # (Auto) 1.4 (0.6-5.0) # Pondera # (Auto) 1.0 (0.0-1.3) # Eos # (Auto) 0.2 (0.0-0.8) # Baso # (Auto) 0.1 (0.0-0.2) # Sodium 142 (135-145) mmol/L Potassium 3.4 L (3.5-5.3) mmol/L Chloride 102 (100-110) mmol/L Carbon Dioxide 29 (21-32) mmol/L BUN 22 H D (7-18) mg/dL Creatinine 1.8 H (0.55-1.02) mg/dL Est Cr Clr Drug Dosing TNP Estimated GFR (MDRD) 27 L (>60) BUN/Creatinine Ratio 12.2 (9-20) Glucose 98 (80-116) mg/dL Calcium 8.9 (8.6-10.2) mg/dL Departure - Departure Time of Disposition: 21:00 Disposition: Home, Self-Care 01 Condition: Fair Clinical Impression: Bronchitis - Discharge Information *PRESCRIPTION DRUG MONITORING PROGRAM REVIEWED*: Not Applicable *COPY OF PRESCRIPTION DRUG MONITORING REPORT IN PATIENT FOSTER: Not Applicable Referrals: PCP,None [Primary Care Provider] - Forms: ED Department Discharge - Problem List & Annotations (1) Bronchitis SNOMED Code(s): 97754944 Code(s): J40 - BRONCHITIS, NOT SPECIFIED ACUTE OR CHRONIC Status: Acute Current Visit: Yes Annotation/Comment:: No findings for pneumonia, bronchitis likely. She may finish out the Levaquin as directed. - Problem List Review Problem List Initiated/Reviewed/Updated: Yes - My Orders Last 24 Hours: My Active Orders 04/28/19 19:38 Chest 1V Frontal [CR] Stat - Assessment/Plan Last 24 Hours: My Active Orders 04/28/19 19:38 Chest 1V Frontal [CR] Stat Plan: Follow up with PCP if needed.
[2019-04-28 23:01] VITALS: BP 152/52; PULSE 66
--- NOTE | 2019-04-30 10:48 | CR ---
INDICATION: Chest congestion, CAP yesterday, borderline hypoxia. CHEST: AP portable upright view of the chest, 04/28/19, was compared with 05/16 and 12/09/14. An infiltrate compatible with pneumonia at the right lung base has resolved, compared with the previous study. Pulmonary markings are otherwise essentially unchanged and negative for definite active infiltrate or effusion. Allowing for the AP portable technique, the heart did not appear enlarged. The aorta is tortuous and calcified in the arch and descending portion. Bipolar pacemaker leads are unchanged in position. IMPRESSION: 1. No acute process. 2. Resolution of previous right basilar pneumonia. 3. ASHD. Heart size, however, appears to be fairly stable and probably normal. 4. Bipolar pacemaker leads unchanged in position. MTDD
== END 2019-04-28 21:10 | disposition home or self-care (01) ==
LOC: FB.ED 19:26
DX: J40 Bronchitis, not specified as acute or chronic (principal); E05.90 Thyrotoxicosis, unspecified without thyrotoxic crisis or storm; Z90.49 Acquired absence of other specified parts of digestive tract; Z90.722 Acquired absence of ovaries, bilateral; Z90.710 Acquired absence of both cervix and uterus; Z79.899 Other long term (current) drug therapy; Z91.048 Other nonmedicinal substance allergy status; Z88.8 Allergy status to other drugs, medicaments and biological substances; Z88.1 Allergy status to other antibiotic agents
CPT/HCPCS: 36415; 71045; 80048; 85025; 99284-25

== ENCOUNTER 2019-09-01 13:37 | Observation (INO) | payer MEDICARE, BC ==
[2019-09-01] MEDS ORDERED: HYDROmorphone 2 MG/ML SDV IVPUSH ONE (14:04)
[2019-09-01] MEDS ORDERED: Ondansetron 4 MG/2 ML SDV IVPUSH ONE (14:04)
--- NOTE | 2019-09-01 14:13 | EDM.PDOC ---
ED HPI GENERAL MEDICAL PROBLEM - General Chief Complaint: Abdominal Pain Stated Complaint: RT SIDE PAIN Time Seen by Provider: 09/01/19 14:08 Source of Information: Reports: Patient, Family History Limitations: Reports: No Limitations - History of Present Illness INITIAL COMMENTS - FREE TEXT/NARRATIVE: Developed RUQ and LUQ pain yesterday, RUQ pain is worse than LUQ pain. Had diarrhea yesterday, none today. Denies N/V. Patient had a transient episode of SOB, but no chest pain. Currently the patient is not short of breath. Past medical history includes Afib, pacemaker, and bowel obstruction. Past surgical history includes cholecystectomy, appendectomy, hysterectomy, and bowel resection. Patient has not eaten since yesterday, states she is not hungry. Onset Date: 08/31/19 Location: Reports: Abdomen Severity: Moderate right side abd Pain Score (Numeric/FACES): 8 - Related Data Allergies Allergy/AdvReac Type Severity Reaction Status Date / Time allopurinol Allergy Anaphylactic Verified 09/01/19 16:32 Shock atorvastatin calcium Allergy Bronchospas Verified 09/01/19 16:32 [From Lipitor] ms cyclobenzaprine HCl Allergy Cannot Verified 09/01/19 16:32 [From Flexeril] Remember doxycycline Allergy Cannot Verified 09/01/19 16:32 Remember indomethacin Allergy Hives Verified 09/01/19 16:32 lisinopril Allergy Hives Verified 09/01/19 16:32 medium chain triglycerides AdvReac Unknown Cannot Verified 09/01/19 16:32 [From Lipisorb] Remember nutritional AdvReac Unknown Cannot Verified 09/01/19 16:32 supplement,special form Remember [From Lipisorb] Home Meds: Home Meds Levothyroxine [Synthroid] 50 mcg PO ACBREAKFAST 12/09/14 [History] Metoprolol Succinate [Toprol Xl] 100 mg PO DAILY 12/09/14 [History] Pantoprazole [ProTONIX] 40 mg PO 0600 #30 tab.cr 12/12/14 [Rx] Furosemide [Lasix] 20 mg PO DAILY 11/10/16 [History] Cholecalciferol (Vitamin D3) [Vitamin D3] 1 cap PO DAILY 03/14/19 [History] Docusate Sodium [Stool Softener] 1 cap PO DAILY 03/14/19 [History] Febuxostat [Uloric] 1 tab PO DAILY 03/14/19 [History] Polyethylene Glycol 3350 [MiraLAX] 1 pack PO DAILY 03/14/19 [History] Rivaroxaban [Xarelto] 1 tab PO DAILY 03/14/19 [History] fentaNYL [Duragesic] 1 patch TRDERM ASDIRECTED 03/14/19 [History] Calcium Carbonate [Calcium] 500 mg PO DAILY 09/01/19 [History] Celecoxib [CeleBREX] 200 mg PO DAILY 09/01/19 [History] Past Medical History HEENT History: Reports: Impaired Vision 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 Cardiovascular History: Reports: Afib, CAD, High Cholesterol Respiratory History: Reports: Pneumonia, Recurrent Gastrointestinal History: Reports: Colon Polyp, Diverticulosis, Other (See Below ) Other Gastrointestinal History: COLON SURGERY FOR RUPTURED POLOP- HAD TO STRETCH COLON WHERE HAD SURGERY HAD X3 Genitourinary History: Reports: Pyelonephritis, UTI, Recurrent [employer] History: Reports: Musculoskeletal History: Reports: Arthritis, Back Pain, Chronic, Gout, Other ( See Below) Other Musculoskeletal History: RIGHT SCIATICA Neurological History: Reports: Concussion, Head Trauma Endocrine/Metabolic History: Reports: Hyperthyroidism Dermatologic History: Reports: None - Infectious Disease History Infectious Disease History: Reports: Other (See Below) Other Infectious Disease History: PATIENT IS UNSURE - Past Surgical History HEENT Surgical History: Reports: Adenoidectomy, Cataract Surgery, Detached Retina, Tonsillectomy, Other (See Below) Other HEENT Surgeries/Procedures: STONE REMOVED FROM GLAND IN NECK Cardiovascular Surgical History: Reports: Pacer Respiratory Surgical History: Reports: None GI Surgical History: Reports: Appendectomy, Cholecystectomy, Colon, Colonoscopy , Lysis of Adhesions Female Surgical History: Reports: Hysterectomy, Salpingo-Oophorectomy Endocrine Surgical History: Reports: None Neurological Surgical History: Reports: None Musculoskeletal Surgical History: Reports: None, ORIF, Other (See Below) Other Musculoskeletal Surgeries/Procedures:: R HIP FRACTURE ORIF Dermatological Surgical History: Reports: None Social & Family History - Family History Family Medical History: Noncontributory Musculoskeletal: Reports: None Psychiatric: Reports: Schizophrenia Hematologic: Reports: None Oncologic: Reports: Leukemia - Tobacco Use Tobacco Use Within Last Twelve Months: No - Caffeine Use Caffeine Use: Reports: Coffee - Alcohol Use Alcohol Use History: No ED ROS GENERAL - Review of Systems Review Of Systems: Comprehensive ROS is negative, except as noted in HPI. ED EXAM, GI/ABD - Physical Exam Exam: See Below Exam Limited By: No Limitations General Appearance: Alert, WD/WN, No Apparent Distress Ears: Normal External Exam Throat/Mouth: No Airway Compromise Head: Atraumatic, Normocephalic Neck: Supple Respiratory/Chest: No Respiratory Distress, Lungs Clear, Normal Breath Sounds Cardiovascular: Regular Rate, Rhythm, No Murmur GI/Abdominal Exam: Soft, No Distention, No Mass, Tender (moderate RUQ and mild LUQ tenderness), Abnormal Bowel Sounds (hyperactive). No: Guarding, Rigid Back Exam: Full Range of Motion Extremities: Normal Range of Motion Neurological: Alert, Normal Cognition Psychiatric: Normal Affect, Normal Mood Skin Exam: Warm, Dry, Intact Course - Vital Signs Last Recorded V/S: Last Vital Signs Temp 37.3 C 09/01/19 13:37 Pulse 78 09/01/19 13:37 Resp 25 H 09/01/19 13:37 BP 151/63 H 09/01/19 13:37 Pulse Ox 95 09/01/19 13:37 - Orders/Labs/Meds Orders: Active Orders 24 hr Category Date Time Status Admission Status [Patient Status] [ADT] Routine ADT 09/01/19 17:30 Ordered Abdomen Pelvis w Cont [CT] Stat Exams 09/01/19 14:31 Taken CULTURE BLOOD [BC] Urgent Lab 09/01/19 16:03 Ordered CULTURE BLOOD [BC] Urgent Lab 09/01/19 16:32 Received CULTURE URINE [RM] Stat Lab 09/01/19 16:00 Received Sodium Chloride 0.9% [Saline Flush] Med 09/01/19 14:03 Active 10 ml FLUSH ASDIRECTED PRN Blood Culture x2 Reflex Set [OM.PC] Urgent Oth 09/01/19 16:03 Ordered Saline Lock Insert [OM.PC] Routine Oth 09/01/19 14:03 Ordered Medication Orders Sodium Chloride (Saline Flush) 10 ml FLUSH ASDIRECTED PRN PRN Reason: Keep Vein Open Last Admin: 09/01/19 14:19 Dose: 10 ml Labs: Laboratory Tests 09/01/19 09/01/19 09/01/19 Range/Units 14:12 14:12 14:12 WBC 16.2 H (4.5-12.0) X10-3/uL RBC 3.93 (3.23-5.20) x10(6)uL Hgb 12.3 (11.5-15.5) g/dL Hct 35.3 (30.0-51.3) % MCV 89.9 (80-96) fL MCH 31.3 (27.7-33.6) pg MCHC 34.9 (32.2-35.4) g/dL RDW 13.4 (11.5-15.5) % Plt Count 189 (125-369) X10(3)uL MPV 9.4 (7.4-10.4) fL Add Manual Diff Yes Neutrophils % (Manual) 78 (46-82) % Band Neutrophils % 6 (0-6) % Lymphocytes % (Manual) 8 L (13-37) % Monocytes % (Manual) 7 (4-12) % Basophils % (Manual) 1 (0-2) % Sodium 142 (135-145) mmol/L Potassium 3.3 L (3.5-5.3) mmol/L Chloride 104 (100-110) mmol/L Carbon Dioxide 28 (21-32) mmol/L BUN 19 H (7-18) mg/dL Creatinine 1.5 H (0.55-1.02) mg/dL Est Cr Clr Drug Dosing TNP Estimated GFR (MDRD) 33 L (>60) BUN/Creatinine Ratio 12.7 (9-20) Glucose 110 (80-116) mg/dL Lactic Acid (0.4-2.0) mmol/L Calcium 8.6 (8.6-10.2) mg/dL Total Bilirubin 1.5 H (0.1-1.3) mg/dL AST 16 D (5-25) IU/L ALT 11 L D (12-36) U/L Alkaline Phosphatase 72 (56-112) IU/L Troponin I < 0.017 L (<0.017-0.056) ng/mL Total Protein 7.0 (6.0-8.0) g/dL Albumin 3.7 (3.2-4.6) g/dL Globulin 3.3 g/dL Albumin/Globulin Ratio 1.1 Lipase 131 (73-393) U/L Urine Color (YELLOW) Urine Appearance (CLEAR) Urine pH (5.0-6.5) Ur Specific [place] (1.010-1.025) Urine Protein (NEGATIVE) mg/dL Urine Glucose (UA) (NORMAL) mg/dL Urine Ketones (NEGATIVE) mg/dL Urine Occult Blood (NEGATIVE) Urine Nitrite (NEGATIVE) Urine Bilirubin (NEGATIVE) Urine Urobilinogen (NEGATIVE) mg/dL Ur Leukocyte Esterase (NEGATIVE) Urine RBC (0-5) Urine WBC (0-5) Ur Squamous Epith Cells (NS,R,O) Urine Bacteria (NS) 09/01/19 09/01/19 Range/Units 16:00 16:20 WBC (4.5-12.0) X10-3/uL RBC (3.23-5.20) x10(6)uL Hgb (11.5-15.5) g/dL Hct (30.0-51.3) % MCV (80-96) fL MCH (27.7-33.6) pg MCHC (32.2-35.4) g/dL RDW (11.5-15.5) % Plt Count (125-369) X10(3)uL MPV (7.4-10.4) fL Add Manual Diff Neutrophils % (Manual) (46-82) % Band Neutrophils % (0-6) % Lymphocytes % (Manual) (13-37) % Monocytes % (Manual) (4-12) % Basophils % (Manual) (0-2) % Sodium (135-145) mmol/L Potassium (3.5-5.3) mmol/L Chloride (100-110) mmol/L Carbon Dioxide (21-32) mmol/L BUN (7-18) mg/dL Creatinine (0.55-1.02) mg/dL Est Cr Clr Drug Dosing Estimated GFR (MDRD) (>60) BUN/Creatinine Ratio (9-20) Glucose (80-116) mg/dL Lactic Acid 1.3 (0.4-2.0) mmol/L Calcium (8.6-10.2) mg/dL Total Bilirubin (0.1-1.3) mg/dL AST (5-25) IU/L ALT (12-36) U/L Alkaline Phosphatase (56-112) IU/L Troponin I (<0.017-0.056) ng/mL Total Protein (6.0-8.0) g/dL Albumin (3.2-4.6) g/dL Globulin g/dL Albumin/Globulin Ratio Lipase (73-393) U/L Urine Color Yellow (YELLOW) Urine Appearance Clear (CLEAR) Urine pH 6.5 (5.0-6.5) Ur Specific [place] 1.005 L (1.010-1.025) Urine Protein Negative (NEGATIVE) mg/dL Urine Glucose (UA) Normal (NORMAL) mg/dL Urine Ketones Negative (NEGATIVE) mg/dL Urine Occult Blood Negative (NEGATIVE) Urine Nitrite Negative (NEGATIVE) Urine Bilirubin Negative (NEGATIVE) Urine Urobilinogen Normal (NEGATIVE) mg/dL Ur Leukocyte Esterase Small H (NEGATIVE) Urine RBC 0-5 (0-5) Urine WBC 10-20 H (0-5) Ur Squamous Epith Cells Few H (NS,R,O) Urine Bacteria Few H (NS) Meds: Medications Generic Name Dose Route Start Last Admin Trade Name Freq PRN Reason Stop Dose Admin Sodium Chloride 10 ml 09/01/19 14:03 09/01/19 14:19 Saline Flush FLUSH 10 ml ASDIRECTED PRN Administration Keep Vein Open Discontinued Medications Generic Name Dose Route Start Last Admin Trade Name Freq PRN Reason Stop Dose Admin Ceftriaxone Sodium 1 gm 09/01/19 16:27 09/01/19 17:24 Rocephin IVPUSH 09/01/19 16:28 1 gm .ONCE ONE Administration Hydromorphone HCl 0.5 mg 09/01/19 14:04 09/01/19 14:19 Dilaudid IVPUSH 09/01/19 14:05 0.5 mg ONETIME ONE Administration Sodium Chloride 500 mls @ 500 mls/hr 09/01/19 14:31 09/01/19 14:34 Normal Saline IV 09/01/19 15:30 500 mls/hr .BOLUS ONE Administration Iopamidol 100 ml 09/01/19 14:42 09/01/19 14:52 Isovue-370 (76%) IV 09/01/19 14:43 99 ml ONETIME ONE Administration Ondansetron HCl 4 mg 09/01/19 14:04 09/01/19 14:19 Zofran IVPUSH 09/01/19 14:05 4 mg ONETIME ONE Administration - Radiology Interpretation Free Text/Narrative:: CT Abd/Pelvis w/ IV contrast: No acute abnormality. 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 Otherwise no signs of mesenteric ischemia. - Re-Assessments/Exams Free Text/Narrative Re-Assessment/Exam: 09/01/19 16:34 Pain improved after Dilaudid 0.5mg IV, but is beginning to return. 09/01/19 17:37 Will admit to observation for pain control. Departure - Departure Time of Disposition: 17:35 Disposition: Refer to Observation Condition: Fair Clinical Impression: Abdominal pain Qualifiers: Abdominal location: right upper quadrant Qualified Code(s): R10.11 - Right upper quadrant pain UTI (urinary tract infection) Qualifiers: Urinary tract infection type: acute cystitis Hematuria presence: without hematuria Qualified Code(s): N30.00 - Acute cystitis without hematuria Leukocytosis Qualifiers: Leukocytosis type: unspecified Qualified Code(s): D72.829 - Elevated white blood cell count, unspecified - Discharge Information *PRESCRIPTION DRUG MONITORING PROGRAM REVIEWED*: Yes *COPY OF PRESCRIPTION DRUG MONITORING REPORT IN PATIENT FOSTER: No Referrals: Piero Waddell MD [Primary Care Provider] - Forms: ED Department Discharge Sepsis Event Note - Focused Exam Vital Signs: Vital Signs Temp Pulse Resp BP Pulse Ox 09/01/19 13:37 37.3 C 78 25 H 151/63 H 95 Date Exam was Performed: 09/01/19 Time Exam was Performed: 17:31 - My Orders Last 24 Hours: My Active Orders 09/01/19 14:03 Sodium Chloride 0.9% [Saline Flush] 10 ml FLUSH ASDIRECTED PRN Saline Lock Insert [OM.PC] Routine 09/01/19 14:31 Abdomen Pelvis w Cont [CT] Stat 09/01/19 16:00 CULTURE URINE [RM] Stat 09/01/19 16:03 CULTURE BLOOD [BC] Urgent Blood Culture x2 Reflex Set [OM.PC] Urgent 09/01/19 16:32 CULTURE BLOOD [BC] Urgent 09/01/19 17:30 Admission Status [Patient Status] [ADT] Routine - Assessment/Plan Last 24 Hours: My Active Orders 09/01/19 14:03 Sodium Chloride 0.9% [Saline Flush] 10 ml FLUSH ASDIRECTED PRN Saline Lock Insert [OM.PC] Routine 09/01/19 14:31 Abdomen Pelvis w Cont [CT] Stat 09/01/19 16:00 CULTURE URINE [RM] Stat 09/01/19 16:03 CULTURE BLOOD [BC] Urgent Blood Culture x2 Reflex Set [OM.PC] Urgent 09/01/19 16:32 CULTURE BLOOD [BC] Urgent 09/01/19 17:30 Admission Status [Patient Status] [ADT] Routine
[2019-09-01] MEDS: Sodium Chloride 0.9% 10 ML Syringe FLUSH PRN (14:19)
[2019-09-01] MEDS ORDERED: Sodium Chloride 0.9% 500 ML IV ONE (14:31)
[2019-09-01] MEDS ORDERED: Iopamidol 755 Mg/ML 100 ML Bottle IV ONE (14:42)
[2019-09-01] MEDS ORDERED: cefTRIAXone 1 GM Vial IVPUSH ONE (16:27)
[2019-09-01] MEDS ORDERED: Ondansetron 4 MG/2 ML SDV IV PRN (17:48)
[2019-09-01] MEDS ORDERED: HYDROmorphone 2 MG/ML SDV IVPUSH PRN (17:48)
[2019-09-01] MEDS: Sodium Chloride 0.9% 1,000 ML IV SCH (18:55)
[2019-09-02] MEDS: Sodium Chloride 0.9% 1,000 ML IV SCH ×2 (04:29→14:10)
[2019-09-02] MEDS: Pantoprazole 40 MG Tab.CR**PT OWN PO SCH (06:44)
[2019-09-02] MEDS: Levothyroxine 50 MCG Tab**PT OWN PO SCH (06:45)
[2019-09-02] MEDS ORDERED: CELECOXIB 200 MG PO SCH (09:00)
[2019-09-02] MEDS: Furosemide 20 MG Tab**PT OWN PO SCH (09:31)
[2019-09-02] MEDS: FEBUXOSTAT 40 MG PO SCH (09:31)
[2019-09-02] MEDS: METOPROLOL SUCCINATE 100 MG PO SCH (09:32)
[2019-09-02] MEDS ORDERED: Enoxaparin 30 MG/0.3 ML Syringe SUBCUT ONE (10:23)
[2019-09-02] MEDS ORDERED: Potassium Chloride 20 MEQ Tab.ER PO SCH (10:30)
[2019-09-02] MEDS ORDERED: fentaNYL 12 MCG/HR Transdermal Patch TRDERM SCH (10:30)
--- NOTE | 2019-09-02 11:50 | PCM.HP.2 ---
H&P History of Present Illness - General Date of Service: 09/02/19 Admit Problem/Dx: Admission Diagnosis/Problem Admission Diagnosis/Problem Abdominal pain Source of Information: Patient History Limitations: Reports: No Limitations - History of Present Illness Initial Comments - Free Text/Narative: This is an 89-year-old female patient who is a resident of [facility]. She said 2 day history of pain in the lower ribs of her abdomen bilateral. She says it hurts when she takes a deep breath. She had a couple diarrhea stools with no blood. She denies nausea or vomiting but does not have an appetite. She said she didn't check her temperature was 103 yesterday. She denies chills, runny nose, sore throat, dysuria, pyuria, hematuria. She denies cough shortness of breath. She has had a history of cystectomy, appendectomy, hysterectomy, bowel resection. right side abd Pain Score (Numeric/FACES): 2 - Related Data Allergies/Adverse Reactions: Allergies Allergy/AdvReac Type Severity Reaction Status Date / Time allopurinol Allergy Anaphylactic Verified 09/01/19 16:32 Shock atorvastatin calcium Allergy Bronchospas Verified 09/01/19 16:32 [From Lipitor] ms cyclobenzaprine HCl Allergy Cannot Verified 09/01/19 16:32 [From Flexeril] Remember doxycycline Allergy Cannot Verified 09/01/19 16:32 Remember indomethacin Allergy Hives Verified 09/01/19 16:32 lisinopril Allergy Hives Verified 09/01/19 16:32 medium chain triglycerides AdvReac Unknown Cannot Verified 09/01/19 16:32 [From Lipisorb] Remember nutritional AdvReac Unknown Cannot Verified 09/01/19 16:32 supplement,special form Remember [From Lipisorb] Home Medications: Home Meds Levothyroxine [Synthroid] 50 mcg PO ACBREAKFAST 12/09/14 [History] Metoprolol Succinate [Toprol Xl] 100 mg PO DAILY 12/09/14 [History] Pantoprazole [ProTONIX] 40 mg PO 0600 #30 tab.cr 12/12/14 [Rx] Furosemide [Lasix] 20 mg PO DAILY 11/10/16 [History] Cholecalciferol (Vitamin D3) [Vitamin D3] 1 cap PO DAILY 03/14/19 [History] Docusate Sodium [Stool Softener] 1 cap PO DAILY 03/14/19 [History] Febuxostat [Uloric] 1 tab PO DAILY 03/14/19 [History] Polyethylene Glycol 3350 [MiraLAX] 1 pack PO DAILY 03/14/19 [History] Rivaroxaban [Xarelto] 1 tab PO DAILY 03/14/19 [History] fentaNYL [Duragesic] 1 patch TRDERM ASDIRECTED 03/14/19 [History] Calcium Carbonate [Calcium] 500 mg PO DAILY 09/01/19 [History] Celecoxib [CeleBREX] 200 mg PO DAILY 09/01/19 [History] Past Medical History HEENT History: Reports: Impaired Vision 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 Cardiovascular History: Reports: Afib, CAD, High Cholesterol Respiratory History: Reports: Pneumonia, Recurrent Gastrointestinal History: Reports: Colon Polyp, Diverticulosis, Other (See Below ) Other Gastrointestinal History: COLON SURGERY FOR RUPTURED POLOP- HAD TO STRETCH COLON WHERE HAD SURGERY HAD X3 Genitourinary History: Reports: Pyelonephritis, UTI, Recurrent [employer] History: Reports: Musculoskeletal History: Reports: Arthritis, Back Pain, Chronic, Gout, Other ( See Below) Other Musculoskeletal History: RIGHT SCIATICA Neurological History: Reports: Concussion, Head Trauma Endocrine/Metabolic History: Reports: Hyperthyroidism Dermatologic History: Reports: None - Infectious Disease History Infectious Disease History: Reports: Other (See Below) Other Infectious Disease History: PATIENT IS UNSURE - Past Surgical History HEENT Surgical History: Reports: Adenoidectomy, Cataract Surgery, Detached Retina, Tonsillectomy, Other (See Below) Other HEENT Surgeries/Procedures: STONE REMOVED FROM GLAND IN NECK Cardiovascular Surgical History: Reports: Pacer Respiratory Surgical History: Reports: None GI Surgical History: Reports: Appendectomy, Cholecystectomy, Colon, Colonoscopy , Lysis of Adhesions Female Surgical History: Reports: Hysterectomy, Salpingo-Oophorectomy Endocrine Surgical History: Reports: None Neurological Surgical History: Reports: None Musculoskeletal Surgical History: Reports: None, ORIF, Other (See Below) Other Musculoskeletal Surgeries/Procedures:: R HIP FRACTURE ORIF Dermatological Surgical History: Reports: None Social & Family History - Family History Family Medical History: Noncontributory Musculoskeletal: Reports: None Psychiatric: Reports: Schizophrenia Hematologic: Reports: None Oncologic: Reports: Leukemia - Tobacco Use Smoking Status *Q: Former Smoker Used Tobacco, but Quit: Yes Month/Year Tobacco Last Used: 1979 - Caffeine Use Caffeine Use: Reports: Coffee Caffeine Use Comment: one cup in am - Recreational Drug Use Recreational Drug Use: No H&P Review of Systems - Review of Systems: Review Of Systems: See Below General: Reports: Fever, Decreased Appetite. Denies: Chills HEENT: Reports: No Symptoms Pulmonary: Reports: No Symptoms Cardiovascular: Reports: No Symptoms Gastrointestinal: Reports: Abdominal Pain Genitourinary: Reports: No Symptoms Musculoskeletal: Reports: No Symptoms Skin: Reports: No Symptoms Psychiatric: Reports: No Symptoms Neurological: Reports: No Symptoms Hematologic/Lymphatic: Reports: No Symptoms Immunologic: Reports: No Symptoms Exam - Exam Exam: See Below - Vital Signs Vital Signs: Last Vital Signs Temp 97.3 F 09/02/19 08:00 Pulse 84 09/02/19 09:32 Resp 16 09/02/19 08:00 BP 143/77 H 09/02/19 09:32 Pulse Ox 95 09/02/19 00:00 Weight: 145 lb 6 oz - Exam General: Alert, Oriented, Cooperative HEENT: Hearing Intact, Mucosa Moist & [place], Posterior Pharynx Clear, TMs Clear Neck: Supple, Trachea Midline Lungs: Clear to Auscultation, Normal Respiratory Effort. No: Crackles, Rales, Rhonchi Cardiovascular: Regular Rate, Regular Rhythm. No: Systolic Murmur, Diastolic Murmur GI/Abdominal Exam: Other (Abdomen has pain right and left upper quadrant on palpation. No rebound or guarding.) Back Exam: Normal Inspection, Full Range of Motion Extremities: Normal Inspection, Normal Range of Motion, Non-Tender, No Pedal Edema Skin: Warm, Dry, Intact Neuro Extensive - Mental Status: Alert, Oriented x3, Normal Mood/Affect, Normal Cognition Psychiatric: Alert, Normal Affect, Normal Mood - Patient Data Lab Results Last 24 hrs: Laboratory Results - last 24 hr 09/01/19 09/01/19 09/01/19 Range/Units 14:12 14:12 14:12 WBC 16.2 H (4.5-12.0) X10-3/uL RBC 3.93 (3.23-5.20) x10(6)uL Hgb 12.3 (11.5-15.5) g/dL Hct 35.3 (30.0-51.3) % MCV 89.9 (80-96) fL MCH 31.3 (27.7-33.6) pg MCHC 34.9 (32.2-35.4) g/dL RDW 13.4 (11.5-15.5) % Plt Count 189 (125-369) X10(3)uL MPV 9.4 (7.4-10.4) fL Neut % (Auto) (46-82) % Lymph % (Auto) (13-37) % Andrew % (Auto) (4-12) % Eos % (Auto) (1.0-5.0) % Baso % (Auto) (0-2) % Neut # (Auto) (1.6-8.3) # Lymph # (Auto) (0.6-5.0) # Andrew # (Auto) (0.0-1.3) # Eos # (Auto) (0.0-0.8) # Baso # (Auto) (0.0-0.2) # Add Manual Diff Yes Neutrophils % (Manual) 78 (46-82) % Band Neutrophils % 6 (0-6) % Lymphocytes % (Manual) 8 L (13-37) % Monocytes % (Manual) 7 (4-12) % Basophils % (Manual) 1 (0-2) % Sodium 142 (135-145) mmol/L Potassium 3.3 L (3.5-5.3) mmol/L Chloride 104 (100-110) mmol/L Carbon Dioxide 28 (21-32) mmol/L BUN 19 H (7-18) mg/dL Creatinine 1.5 H (0.55-1.02) mg/dL Est Cr Clr Drug Dosing TNP Estimated GFR (MDRD) 33 L (>60) BUN/Creatinine Ratio 12.7 (9-20) Glucose 110 (80-116) mg/dL Lactic Acid (0.4-2.0) mmol/L Calcium 8.6 (8.6-10.2) mg/dL Total Bilirubin 1.5 H (0.1-1.3) mg/dL AST 16 D (5-25) IU/L ALT 11 L D (12-36) U/L Alkaline Phosphatase 72 (56-112) IU/L Troponin I < 0.017 L (<0.017-0.056) ng/mL Total Protein 7.0 (6.0-8.0) g/dL Albumin 3.7 (3.2-4.6) g/dL Globulin 3.3 g/dL Albumin/Globulin Ratio 1.1 Lipase 131 (73-393) U/L Urine Color (YELLOW) Urine Appearance (CLEAR) Urine pH (5.0-6.5) Ur Specific [place] (1.010-1.025) Urine Protein (NEGATIVE) mg/dL Urine Glucose (UA) (NORMAL) mg/dL Urine Ketones (NEGATIVE) mg/dL Urine Occult Blood (NEGATIVE) Urine Nitrite (NEGATIVE) Urine Bilirubin (NEGATIVE) Urine Urobilinogen (NEGATIVE) mg/dL Ur Leukocyte Esterase (NEGATIVE) Urine RBC (0-5) Urine WBC (0-5) Ur Squamous Epith Cells (NS,R,O) Urine Bacteria (NS) 09/01/19 09/01/19 09/02/19 Range/Units 16:00 16:20 06:40 WBC 12.8 H (4.5-12.0) X10-3/uL RBC 3.37 (3.23-5.20) x10(6)uL Hgb 10.8 L (11.5-15.5) g/dL Hct 30.8 (30.0-51.3) % MCV 91.6 (80-96) fL MCH 32.0 (27.7-33.6) pg MCHC 34.9 (32.2-35.4) g/dL RDW 13.7 (11.5-15.5) % Plt Count 139 (125-369) X10(3)uL MPV 9.7 (7.4-10.4) fL Neut % (Auto) 75.5 (46-82) % Lymph % (Auto) 15.1 (13-37) % Andrew % (Auto) 8.0 (4-12) % Eos % (Auto) 1 (1.0-5.0) % Baso % (Auto) 1 (0-2) % Neut # (Auto) 9.7 H (1.6-8.3) # Lymph # (Auto) 1.9 (0.6-5.0) # Andrew # (Auto) 1.0 (0.0-1.3) # Eos # (Auto) 0.1 (0.0-0.8) # Baso # (Auto) 0.1 (0.0-0.2) # Add Manual Diff Neutrophils % (Manual) (46-82) % Band Neutrophils % (0-6) % Lymphocytes % (Manual) (13-37) % Monocytes % (Manual) (4-12) % Basophils % (Manual) (0-2) % Sodium (135-145) mmol/L Potassium (3.5-5.3) mmol/L Chloride (100-110) mmol/L Carbon Dioxide (21-32) mmol/L BUN (7-18) mg/dL Creatinine (0.55-1.02) mg/dL Est Cr Clr Drug Dosing Estimated GFR (MDRD) (>60) BUN/Creatinine Ratio (9-20) Glucose (80-116) mg/dL Lactic Acid 1.3 (0.4-2.0) mmol/L Calcium (8.6-10.2) mg/dL Total Bilirubin (0.1-1.3) mg/dL AST (5-25) IU/L ALT (12-36) U/L Alkaline Phosphatase (56-112) IU/L Troponin I (<0.017-0.056) ng/mL Total Protein (6.0-8.0) g/dL Albumin (3.2-4.6) g/dL Globulin g/dL Albumin/Globulin Ratio Lipase (73-393) U/L Urine Color Yellow (YELLOW) Urine Appearance Clear (CLEAR) Urine pH 6.5 (5.0-6.5) Ur Specific [place] 1.005 L (1.010-1.025) Urine Protein Negative (NEGATIVE) mg/dL Urine Glucose (UA) Normal (NORMAL) mg/dL Urine Ketones Negative (NEGATIVE) mg/dL Urine Occult Blood Negative (NEGATIVE) Urine Nitrite Negative (NEGATIVE) Urine Bilirubin Negative (NEGATIVE) Urine Urobilinogen Normal (NEGATIVE) mg/dL Ur Leukocyte Esterase Small H (NEGATIVE) Urine RBC 0-5 (0-5) Urine WBC 10-20 H (0-5) Ur Squamous Epith Cells Few H (NS,R,O) Urine Bacteria Few H (NS) 09/02/19 Range/Units 06:40 WBC (4.5-12.0) X10-3/uL RBC (3.23-5.20) x10(6)uL Hgb (11.5-15.5) g/dL Hct (30.0-51.3) % MCV (80-96) fL MCH (27.7-33.6) pg MCHC (32.2-35.4) g/dL RDW (11.5-15.5) % Plt Count (125-369) X10(3)uL MPV (7.4-10.4) fL Neut % (Auto) (46-82) % Lymph % (Auto) (13-37) % Andrew % (Auto) (4-12) % Eos % (Auto) (1.0-5.0) % Baso % (Auto) (0-2) % Neut # (Auto) (1.6-8.3) # Lymph # (Auto) (0.6-5.0) # Andrew # (Auto) (0.0-1.3) # Eos # (Auto) (0.0-0.8) # Baso # (Auto) (0.0-0.2) # Add Manual Diff Neutrophils % (Manual) (46-82) % Band Neutrophils % (0-6) % Lymphocytes % (Manual) (13-37) % Monocytes % (Manual) (4-12) % Basophils % (Manual) (0-2) % Sodium 144 (135-145) mmol/L Potassium 3.3 L (3.5-5.3) mmol/L Chloride 107 (100-110) mmol/L Carbon Dioxide 30 (21-32) mmol/L BUN 19 H (7-18) mg/dL Creatinine 1.4 H (0.55-1.02) mg/dL Est Cr Clr Drug Dosing 22.98 Estimated GFR (MDRD) 35 L (>60) BUN/Creatinine Ratio 13.6 (9-20) Glucose 86 (80-116) mg/dL Lactic Acid (0.4-2.0) mmol/L Calcium 8.0 L (8.6-10.2) mg/dL Total Bilirubin 0.6 (0.1-1.3) mg/dL AST 12 D (5-25) IU/L ALT 7 L D (12-36) U/L Alkaline Phosphatase 63 (56-112) IU/L Troponin I (<0.017-0.056) ng/mL Total Protein 5.9 L (6.0-8.0) g/dL Albumin 2.9 L (3.2-4.6) g/dL Globulin 3.0 g/dL Albumin/Globulin Ratio 1.0 Lipase (73-393) U/L Urine Color (YELLOW) Urine Appearance (CLEAR) Urine pH (5.0-6.5) Ur Specific [place] (1.010-1.025) Urine Protein (NEGATIVE) mg/dL Urine Glucose (UA) (NORMAL) mg/dL Urine Ketones (NEGATIVE) mg/dL Urine Occult Blood (NEGATIVE) Urine Nitrite (NEGATIVE) Urine Bilirubin (NEGATIVE) Urine Urobilinogen (NEGATIVE) mg/dL Ur Leukocyte Esterase (NEGATIVE) Urine RBC (0-5) Urine WBC (0-5) Ur Squamous Epith Cells (NS,R,O) Urine Bacteria (NS) Result Diagrams: 09/02/19 06:40 09/02/19 06:40 Tuan Results Last 24 hrs: Microbiology 09/02/19 01:15 C. difficile Antigen & Toxins A,B - Final Stool / Feces Sepsis Event Note - Evaluation Sepsis Screening Result: No Definite Risk - Focused Exam Vital Signs: Vital Signs Temp Pulse Pulse Resp BP BP Pulse Ox 09/02/19 09:32 84 143/77 H 09/02/19 08:00 97.3 F 84 16 143/77 H 09/02/19 00:00 97.6 F 62 17 113/56 L 95 Date Exam was Performed: 09/02/19 Time Exam was Performed: 11:45 - Problem List (1) Abdominal pain SNOMED Code(s): 77931904 ICD Code: R10.9 - UNSPECIFIED ABDOMINAL PAIN Status: Acute Current Visit : Yes Qualifiers: Abdominal location: right upper quadrant Qualified Code(s): R10.11 - Right upper quadrant pain (2) Leukocytosis SNOMED Code(s): 583478901, 528448318 ICD Code: D72.829 - ELEVATED WHITE BLOOD CELL COUNT, UNSPECIFIED Status: Acute Current Visit: Yes Qualifiers: Leukocytosis type: unspecified Qualified Code(s): D72.829 - Elevated white blood cell count, unspecified (3) UTI (urinary tract infection) SNOMED Code(s): 69694525 ICD Code: N39.0 - URINARY TRACT INFECTION, SITE NOT SPECIFIED Status: Acute Current Visit: Yes Qualifiers: Urinary tract infection type: acute cystitis Hematuria presence: without hematuria Qualified Code(s): N30.00 - Acute cystitis without hematuria (4) Superior mesenteric artery stenosis SNOMED Code(s): 382174774 ICD Code: I77.1 - STRICTURE OF ARTERY Status: Acute Current Visit: Yes (5) Hypokalemia SNOMED Code(s): 74804883 ICD Code: E87.6 - HYPOKALEMIA Status: Acute Current Visit: Yes Problem List Initiated/Reviewed/Updated: Yes Orders Last 24hrs: Active Orders 24 hr Category Date Time Status Admission Status [Patient Status] [ADT] Routine ADT 09/01/19 17:30 Active Ambulate [RC] ASDIRECTED Care 09/01/19 17:48 Active Ambulate [RC] PER UNIT ROUTINE Care 09/01/19 17:50 Active Height and Weight [RC] DAILY Care 09/01/19 17:48 Active Intake and Output [RC] QSHIFT Care 09/01/19 17:49 Active Notify Provider Vital Signs [RC] ASDIRECTED Care 09/01/19 17:49 Active Oxygen Therapy [RC] PRN Care 09/01/19 17:48 Active Pulse Oximetry [RC] PRN Care 09/01/19 17:49 Active VTE/DVT Education [RC] Per Unit Routine Care 09/01/19 17:48 Active Vital Signs [RC] QSHIFT Care 09/01/19 17:48 Active Heart Healthy Diet [DIET] Diet 09/02/19 Breakfast Active Abdomen Pelvis w Cont [CT] Stat Exams 09/01/19 14:31 Taken CULTURE BLOOD [BC] Urgent Lab 09/01/19 16:03 Ordered CULTURE BLOOD [BC] Urgent Lab 09/01/19 16:32 Received CULTURE URINE [RM] Stat Lab 09/01/19 16:00 Received STOOL CULTURE Stat Lab 09/01/19 17:54 Received Calcium Carbonate [Oyster Shell Calcium] Med 09/03/19 09:00 Pending 500 mg PO DAILY Celecoxib [CeleBREX] Med 09/02/19 09:00 Active 200 mg PO DAILY Cholecalciferol (Vitamin D3) [Vitamin D3] Med 09/03/19 09:00 Pending 1 cap PO DAILY Docusate Sodium [Colace] Med 09/03/19 09:00 Pending DOSE mg PO DAILY Febuxostat [Uloric] Med 09/02/19 09:00 Active 40 mg PO DAILY Furosemide [Lasix] Med 09/02/19 09:00 Active 20 mg PO DAILY HYDROmorphone [Dilaudid] Med 09/01/19 17:48 Active 0.5 mg IVPUSH Q4H PRN Levothyroxine [Synthroid] Med 09/02/19 07:30 Active 50 mcg PO ACBREAKFAST Metoprolol Succinate [Toprol XL] Med 09/02/19 09:00 Active 100 mg PO DAILY Ondansetron [Zofran] Med 09/01/19 17:48 Active 4 mg IV Q8H PRN Pantoprazole [ProTONIX] Med 09/02/19 06:00 Active 40 mg PO 0600 Polyethylene Glycol 3350 [MiraLAX] Med 09/03/19 09:00 Pending DOSE gm PO DAILY Potassium Chloride [Klor-Con M20] Med 09/02/19 10:30 Pending 20 meq PO DAILY Rivaroxaban [Xarelto] Med 09/02/19 18:00 Active 15 mg PO DAILY@1800 Sodium Chloride 0.9% [Normal Saline] 1,000 ml Med 09/01/19 18:00 Active IV ASDIRECTED Sodium Chloride 0.9% [Saline Flush] Med 09/01/19 14:03 Active 10 ml FLUSH ASDIRECTED PRN cefTRIAXone [Rocephin] Med 09/02/19 17:00 Active 1 gm IVPUSH Q24H fentaNYL [Duragesic] Med 09/02/19 10:30 Pending DOSE mcg TRDERM ASDIRECTED Blood Culture x2 Reflex Set [OM.PC] Urgent Oth 09/01/19 16:03 Ordered Saline Lock Insert [OM.PC] Routine Oth 09/01/19 14:03 Ordered Resuscitation Status Routine Resus Stat 09/01/19 17:48 Ordered Medication Orders Calcium Carbonate/Glycine (Oyster Shell Calcium) 500 mg PO DAILY [facility] Ceftriaxone Sodium (Rocephin) 1 gm IVPUSH Q24H [facility] Celecoxib (Celebrex) 200 mg PO DAILY [facility] Last Admin: 09/02/19 09:33 Dose: 200 mg Docusate Sodium (Colace) mg PO DAILY [facility] Febuxostat (Uloric) 40 mg PO DAILY [facility] Last Admin: 09/02/19 09:31 Dose: 40 mg Fentanyl (Duragesic) mcg TRDERM ASDIRECTED [facility] Furosemide (Lasix) 20 mg PO DAILY [facility] Last Admin: 09/02/19 09:31 Dose: 20 mg Hydromorphone HCl (Dilaudid) 0.5 mg IVPUSH Q4H PRN PRN Reason: Pain (severe 7-10) Sodium Chloride (Normal Saline) 1,000 mls @ 100 mls/hr IV ASDIRECTED [facility] Last Admin: 09/02/19 04:29 Dose: 100 mls/hr Infusion: 09/02/19 04:29 Dose: 100 mls/hr Admin: 09/01/19 18:55 Dose: 100 mls/hr Levothyroxine Sodium (Synthroid) 50 mcg PO ACBREAKFAST [facility] Last Admin: 09/02/19 06:45 Dose: 50 mcg Metoprolol Succinate (Toprol Xl) 100 mg PO DAILY [facility] Last Admin: 09/02/19 09:32 Dose: 100 mg Non-Formulary Medication (Cholecalciferol (Vitamin D3) [Vitamin D3]) 1 cap PO DAILY [facility] Ondansetron HCl (Zofran) 4 mg IV Q8H PRN PRN Reason: Nausea/Vomiting Pantoprazole Sodium (Protonix) 40 mg PO 0600 [facility] Last Admin: 09/02/19 06:44 Dose: 40 mg Polyethylene Glycol (Miralax) gm PO DAILY [facility] Potassium Chloride (Klor-Con M20) 20 meq PO DAILY [facility] Rivaroxaban (Xarelto) 15 mg PO DAILY@1800 [facility] Sodium Chloride (Saline Flush) 10 ml FLUSH ASDIRECTED PRN PRN Reason: Keep Vein Open Last Admin: 09/01/19 14:19 Dose: 10 ml Assessment/Plan Comment:: 1. Admit for observation. 2. Rocephin IV 3. IV fluids 4. Up with assist 5. Lovenox for VTE prophylaxis 6. Patient wants to be a full code. 7. Chest x-ray 2 views 8. Regular diet as tolerated 9. By mouth potassium - Mortality Measure Prognosis:: Good
[2019-09-02] MEDS ORDERED: cefTRIAXone 1 GM Vial IVPUSH SCH (17:00)
[2019-09-02] MEDS ORDERED: Azithromycin 500 MG Tab PO ONE (17:52)
[2019-09-02] MEDS ORDERED: RIVAROXABAN 15 MG PO SCH (18:00)
[2019-09-03] MEDS: Sodium Chloride 0.9% 1,000 ML IV SCH (02:54)
[2019-09-03] MEDS ORDERED: Magnesium Hydroxide 400 MG/5 ML Susp 30 ML Cup PO PRN (04:51)
[2019-09-03] MEDS: Pantoprazole 40 MG Tab.CR**PT OWN PO SCH (06:33)
[2019-09-03] MEDS: Levothyroxine 50 MCG Tab**PT OWN PO SCH (06:34)
--- NOTE | 2019-09-03 08:34 | PCM.PN ---
- General Info Date of Service: 09/03/19 Admission Dx/Problem (Free Text): The patient states she has a little cough and rhinorrhea today. No fevers, shortness of breath or wheezing. She denies any chest pain. When asked about abdominal pain she says is not her abdomen is her right hip. She says she has pain over the right hip she points to the anterior iliac crest of her pelvis. She denies any trauma. - Patient Data Vitals - Most Recent: Last Vital Signs Temp 98.0 F 09/02/19 23:15 Pulse 61 09/02/19 23:15 Resp 17 09/02/19 23:15 BP 126/74 09/02/19 23:15 Pulse Ox 96 09/02/19 23:15 Weight - Most Recent: 151 lb 4.8 oz I&O - Last 24 Hours: Intake & Output 09/02/19 09/03/19 09/03/19 22:59 06:59 14:59 Intake Total 882 150 Output Total 200 200 Balance 682 -50 Tuan Results Last 24 Hours: Microbiology 09/01/19 16:20 Aerobic Blood Culture - Preliminary Blood - Venous NO GROWTH AFTER 1 DAY Anaerobic Blood Culture - Preliminary NO GROWTH AFTER 1 DAY 09/01/19 16:00 Urine Culture - Preliminary Urine, Clean Catch MIXED POSITIVE NUNO DAY 1 09/01/19 16:32 Aerobic Blood Culture - Preliminary Blood - Venous - Lab Draw NO GROWTH AFTER 1 DAY Anaerobic Blood Culture - Preliminary NO GROWTH AFTER 1 DAY Med Orders - Current: Current Medications Azithromycin (Zithromax) 250 mg PO DAILY [facility] Stop: 09/06/19 09:01 Ceftriaxone Sodium (Rocephin) 1 gm IVPUSH Q24H [facility] Last Admin: 09/02/19 16:47 Dose: 1 gm Celecoxib (Celebrex) 200 mg PO DAILY [facility] Last Admin: 09/02/19 09:33 Dose: 200 mg Febuxostat (Uloric) 40 mg PO DAILY [facility] Last Admin: 09/02/19 09:31 Dose: 40 mg Fentanyl (Duragesic) 12 mcg TRDERM Q7D [facility] Furosemide (Lasix) 20 mg PO DAILY [facility] Last Admin: 09/02/19 09:31 Dose: 20 mg Hydromorphone HCl (Dilaudid) 0.5 mg IVPUSH Q4H PRN PRN Reason: Pain (severe 7-10) Levothyroxine Sodium (Synthroid) 50 mcg PO ACBREAKFAST [facility] Last Admin: 09/03/19 06:34 Dose: 50 mcg Magnesium Hydroxide (Milk Of Magnesia) 30 ml PO DAILY PRN PRN Reason: Constipation Last Admin: 09/03/19 05:06 Dose: 30 ml Metoprolol Succinate (Toprol Xl) 100 mg PO DAILY [facility] Last Admin: 09/02/19 09:32 Dose: 100 mg Ondansetron HCl (Zofran) 4 mg IV Q8H PRN PRN Reason: Nausea/Vomiting Pantoprazole Sodium (Protonix) 40 mg PO 0600 [facility] Last Admin: 09/03/19 06:33 Dose: 40 mg Rivaroxaban (Xarelto) 15 mg PO DAILY@1800 [facility] Last Admin: 09/02/19 17:53 Dose: 15 mg Sodium Chloride (Saline Flush) 10 ml FLUSH ASDIRECTED PRN PRN Reason: Keep Vein Open Last Admin: 09/01/19 14:19 Dose: 10 ml Discontinued Medications Azithromycin (Zithromax) 500 mg PO ONETIME ONE Stop: 09/02/19 17:53 Last Admin: 09/02/19 18:11 Dose: 500 mg Calcium Carbonate/Glycine (Oyster Shell Calcium) 500 mg PO DAILY [facility] Ceftriaxone Sodium (Rocephin) 1 gm IVPUSH .ONCE ONE Stop: 09/01/19 16:28 Last Admin: 09/01/19 17:24 Dose: 1 gm Docusate Sodium (Colace) mg PO DAILY [facility] Enoxaparin Sodium (Lovenox) 30 mg SUBCUT ONETIME ONE Stop: 09/02/19 10:24 Last Admin: 09/02/19 10:59 Dose: 30 mg Fentanyl (Duragesic) mcg TRDERM ASDIRECTED [facility] Hydromorphone HCl (Dilaudid) 0.5 mg IVPUSH ONETIME ONE Stop: 09/01/19 14:05 Last Admin: 09/01/19 14:19 Dose: 0.5 mg Sodium Chloride (Normal Saline) 500 mls @ 500 mls/hr IV .BOLUS ONE Stop: 09/01/19 15:30 Last Admin: 09/01/19 14:34 Dose: 500 mls/hr Sodium Chloride (Normal Saline) 1,000 mls @ 70 mls/hr IV ASDIRECTED [facility] Last Admin: 09/03/19 02:54 Dose: 70 mls/hr Iopamidol (Isovue-370 (76%)) 100 ml IV ONETIME ONE Stop: 09/01/19 14:43 Last Admin: 09/01/19 14:52 Dose: 99 ml Non-Formulary Medication (Cholecalciferol (Vitamin D3) [Vitamin D3]) 1 cap PO DAILY [facility] Ondansetron HCl (Zofran) 4 mg IVPUSH ONETIME ONE Stop: 09/01/19 14:05 Last Admin: 09/01/19 14:19 Dose: 4 mg Polyethylene Glycol (Miralax) gm PO DAILY [facility] Potassium Chloride (Klor-Con M20) 20 meq PO DAILY [facility] Last Admin: 09/02/19 17:44 Dose: Not Given - Exam General: Alert, Oriented, Cooperative Lungs: Clear to Auscultation, Normal Respiratory Effort. No: Crackles, Rales, Rhonchi Cardiovascular: Regular Rate, Regular Rhythm, No Murmurs Extremities: No Pedal Edema, Other (Mild pain over the iliac crest of the pelvis. She has mild discomfort with rotating of the hip.) Sepsis Event Note - Evaluation Sepsis Screening Result: No Definite Risk - Focused Exam Vital Signs: Vital Signs Temp Pulse Resp BP Pulse Ox 09/02/19 23:15 98.0 F 61 17 126/74 96 Date Exam was Performed: 09/03/19 Time Exam was Performed: 08:32 - Problem List & Annotations (1) Abdominal pain SNOMED Code(s): 70173034 Code(s): R10.9 - UNSPECIFIED ABDOMINAL PAIN Status: Acute Current Visit: Yes Qualifiers: Abdominal location: right upper quadrant Qualified Code(s): R10.11 - Right upper quadrant pain (2) Leukocytosis SNOMED Code(s): 627352411, 342204929 Code(s): D72.829 - ELEVATED WHITE BLOOD CELL COUNT, UNSPECIFIED Status: Acute Current Visit: Yes Qualifiers: Leukocytosis type: unspecified Qualified Code(s): D72.829 - Elevated white blood cell count, unspecified (3) UTI (urinary tract infection) SNOMED Code(s): 09343455 Code(s): N39.0 - URINARY TRACT INFECTION, SITE NOT SPECIFIED Status: Acute Current Visit: Yes Qualifiers: Urinary tract infection type: acute cystitis Hematuria presence: without hematuria Qualified Code(s): N30.00 - Acute cystitis without hematuria (4) Superior mesenteric artery stenosis SNOMED Code(s): 865646461 Code(s): I77.1 - STRICTURE OF ARTERY Status: Acute Current Visit: Yes (5) Hypokalemia SNOMED Code(s): 68933054 Code(s): E87.6 - HYPOKALEMIA Status: Acute Current Visit: Yes (6) Bony pelvic pain SNOMED Code(s): 491370949 Code(s): M89.8X8 - OTHER SPECIFIED DISORDERS OF BONE, OTHER SITE Status: Acute Current Visit: Yes (7) Right hip pain SNOMED Code(s): 79960095 Code(s): M25.551 - PAIN IN RIGHT HIP Status: Acute Current Visit: Yes - Problem List Review Problem List Initiated/Reviewed/Updated: Yes - My Orders Last 24 Hours: My Active Orders 09/02/19 15:20 CXR [Chest 2V] [CR] Routine 09/03/19 04:51 Magnesium Hydroxide [Milk of Magnesia] 30 ml PO DAILY PRN 09/03/19 08:15 Pelvis 1V or 2V [CR] Routine 09/03/19 08:16 Hip Min 2V or 3V Rt [CR] Routine 09/03/19 08:17 Convert IV to Saline Lock [OM.PC] Routine 09/03/19 09:00 Azithromycin [Zithromax] 250 mg PO DAILY 09/08/19 09:00 fentaNYL [Duragesic] 12 mcg TRDERM Q7D - Plan Plan:: 1. DC IV fluids and saline lock IV. 2. X-ray of the pelvis in the right hip. 3. Tylenol scheduled for her pain.
[2019-09-03] MEDS ORDERED: Acetaminophen 500 MG Tab PO SCH (09:00)
[2019-09-03] MEDS ORDERED: CHOLECALCIFEROL PO SCH (09:00)
[2019-09-03] MEDS ORDERED: Azithromycin 250 MG Tab PO SCH (09:00)
[2019-09-03] MEDS ORDERED: Calcium Carbonate 500 MG Tablet PO SCH (09:00)
[2019-09-03] MEDS ORDERED: Polyethylene Glycol 3350 Powder 238 GM Bot PO SCH (09:00)
[2019-09-03] MEDS ORDERED: Docusate Sodium 100 MG Cap PO SCH (09:00)
[2019-09-03] MEDS: Furosemide 20 MG Tab**PT OWN PO SCH (09:24)
[2019-09-03] MEDS: METOPROLOL SUCCINATE 100 MG PO SCH (09:24)
[2019-09-03] MEDS: FEBUXOSTAT 40 MG PO SCH (09:25)
[2019-09-03 09:26] VITALS: BP 109/50; PULSE 62
[2019-09-03] MEDS: Sodium Chloride 0.9% 10 ML Syringe FLUSH PRN ×2 (09:26→09:27)
--- NOTE | 2019-09-03 11:43 | CR ---
INDICATION: Right hip pain. RIGHT HIP WITH PELVIS: Frontal view of the pelvis with frontal and lateral views of the right hip were obtained 09/03/19 and compared with 02/16/18. Hip pinning is noted on the right as previously with progressive healing of the femoral shaft fracture fragments since the previous study. No change in position or alignment of the fracture fragments is seen with good position and alignment suggested. A definite complicating process was not identified, although the compression pin is extending into the soft tissues laterally, to a similar degree as on the previous examination. Sacroiliac joints appear to be intact. Slightly decreased bone density raises question of osteoporosis. There is evidence of previous sigmoid anastomosis compatible with colon resection. Degenerative disk disease is suggested at L4-5, L5-S1 with some hypertrophic degenerative changes, mostly at L5-S1. IMPRESSION: No acute bone or joint abnormality. If an occult bony abnormality is suspected clinically, nuclear bone imaging is recommended for further evaluation. Findings were also compared with recent CT of the abdomen and pelvis dated 09/01. [facility]
--- NOTE | 2019-09-03 11:49 | CR ---
INDICATION: Upper abdominal pain with deep inspiration. CHEST, TWO VIEWS: PA and lateral views of the chest were obtained 09/02/19 and compared with 04/28/19 revealing increasing infiltration in the posterior basilar segment of the right upper lobe. This finding may be on the basis of acute pneumonia and should be correlated clinically. Findings were also compared with 05/16/15 chest x-ray which showed minimal pneumonia and pleuritis at the right lung base. There is blunting of the right posterior sulcus suggesting pleuritis. The heart appears slightly enlarged. Bipolar pacemaker leads are unchanged in position. Median sternotomy is again noted. The aorta is tortuous and calcified in the arch and descending portion. Decreased bone density is suggested compatible with osteoporosis with bridging hyperostotic changes in the midthoracic spine. IMPRESSION: Most notable finding is evidence of patchily consolidating pneumonia in the posterior basilar segment of the right upper lobe. Reports were called to Dr. Martinez at 1130 hours, chest x-ray. . [facility]
--- NOTE | 2019-09-03 12:13 | PCM.PN ---
- General Info Date of Service: 09/03/19 Admission Dx/Problem (Free Text): She has right hip pain but no left hip pain. She is able to bear weight. She denies abdominal pain. - Patient Data Vitals - Most Recent: Last Vital Signs Temp 98.0 F 09/02/19 23:15 Pulse 62 09/03/19 09:24 Resp 17 09/02/19 23:15 BP 109/50 L 09/03/19 09:24 Pulse Ox 96 09/02/19 23:15 Weight - Most Recent: 151 lb 4.8 oz I&O - Last 24 Hours: Intake & Output 09/02/19 09/03/19 09/03/19 22:59 06:59 14:59 Intake Total 882 150 Output Total 200 200 Balance 682 -50 Tuan Results Last 24 Hours: Microbiology 09/01/19 16:20 Aerobic Blood Culture - Preliminary Blood - Venous NO GROWTH AFTER 1 DAY Anaerobic Blood Culture - Preliminary NO GROWTH AFTER 1 DAY 09/01/19 16:00 Urine Culture - Preliminary Urine, Clean Catch MIXED POSITIVE NUNO DAY 1 09/01/19 16:32 Aerobic Blood Culture - Preliminary Blood - Venous - Lab Draw NO GROWTH AFTER 1 DAY Anaerobic Blood Culture - Preliminary NO GROWTH AFTER 1 DAY Med Orders - Current: Current Medications Acetaminophen (Tylenol Extra Strength) 1,000 mg PO TID [facility] Last Admin: 09/03/19 09:24 Dose: Not Given Azithromycin (Zithromax) 250 mg PO DAILY [facility] Stop: 09/06/19 09:01 Last Admin: 09/03/19 09:25 Dose: 250 mg Ceftriaxone Sodium (Rocephin) 1 gm IVPUSH Q24H [facility] Last Admin: 09/02/19 16:47 Dose: 1 gm Febuxostat (Uloric) 40 mg PO DAILY [facility] Last Admin: 09/03/19 09:25 Dose: 40 mg Fentanyl (Duragesic) 12 mcg TRDERM Q7D [facility] Furosemide (Lasix) 20 mg PO DAILY [facility] Last Admin: 09/03/19 09:24 Dose: 20 mg Levothyroxine Sodium (Synthroid) 50 mcg PO ACBREAKFAST [facility] Last Admin: 09/03/19 06:34 Dose: 50 mcg Magnesium Hydroxide (Milk Of Magnesia) 30 ml PO DAILY PRN PRN Reason: Constipation Last Admin: 09/03/19 05:06 Dose: 30 ml Metoprolol Succinate (Toprol Xl) 100 mg PO DAILY [facility] Last Admin: 09/03/19 09:24 Dose: 100 mg Ondansetron HCl (Zofran) 4 mg IV Q8H PRN PRN Reason: Nausea/Vomiting Pantoprazole Sodium (Protonix) 40 mg PO 0600 [facility] Last Admin: 09/03/19 06:33 Dose: 40 mg Rivaroxaban (Xarelto) 15 mg PO DAILY@1800 [facility] Last Admin: 09/02/19 17:53 Dose: 15 mg Sodium Chloride (Saline Flush) 10 ml FLUSH ASDIRECTED PRN PRN Reason: Keep Vein Open Last Admin: 09/03/19 09:27 Dose: 10 ml Discontinued Medications Azithromycin (Zithromax) 500 mg PO ONETIME ONE Stop: 09/02/19 17:53 Last Admin: 09/02/19 18:11 Dose: 500 mg Calcium Carbonate/Glycine (Oyster Shell Calcium) 500 mg PO DAILY [facility] Ceftriaxone Sodium (Rocephin) 1 gm IVPUSH .ONCE ONE Stop: 09/01/19 16:28 Last Admin: 09/01/19 17:24 Dose: 1 gm Celecoxib (Celebrex) 200 mg PO DAILY [facility] Last Admin: 09/02/19 09:33 Dose: 200 mg Docusate Sodium (Colace) mg PO DAILY [facility] Enoxaparin Sodium (Lovenox) 30 mg SUBCUT ONETIME ONE Stop: 09/02/19 10:24 Last Admin: 09/02/19 10:59 Dose: 30 mg Fentanyl (Duragesic) mcg TRDERM ASDIRECTED [facility] Hydromorphone HCl (Dilaudid) 0.5 mg IVPUSH ONETIME ONE Stop: 09/01/19 14:05 Last Admin: 09/01/19 14:19 Dose: 0.5 mg Hydromorphone HCl (Dilaudid) 0.5 mg IVPUSH Q4H PRN PRN Reason: Pain (severe 7-10) Sodium Chloride (Normal Saline) 500 mls @ 500 mls/hr IV .BOLUS ONE Stop: 09/01/19 15:30 Last Admin: 09/01/19 14:34 Dose: 500 mls/hr Sodium Chloride (Normal Saline) 1,000 mls @ 70 mls/hr IV ASDIRECTED [facility] Last Admin: 09/03/19 02:54 Dose: 70 mls/hr Iopamidol (Isovue-370 (76%)) 100 ml IV ONETIME ONE Stop: 09/01/19 14:43 Last Admin: 09/01/19 14:52 Dose: 99 ml Non-Formulary Medication (Cholecalciferol (Vitamin D3) [Vitamin D3]) 1 cap PO DAILY [facility] Ondansetron HCl (Zofran) 4 mg IVPUSH ONETIME ONE Stop: 09/01/19 14:05 Last Admin: 09/01/19 14:19 Dose: 4 mg Polyethylene Glycol (Miralax) gm PO DAILY [facility] Potassium Chloride (Klor-Con M20) 20 meq PO DAILY [facility] Last Admin: 09/02/19 17:44 Dose: Not Given - Exam General: Alert, Oriented Lungs: Normal Respiratory Effort GI/Abdominal Exam: Normal Bowel Sounds, Soft, Non-Tender, No Distention Sepsis Event Note - Evaluation Sepsis Screening Result: No Definite Risk - Focused Exam Vital Signs: Vital Signs Pulse BP 09/03/19 09:24 62 109/50 L Date Exam was Performed: 09/03/19 Time Exam was Performed: 12:11 - Problem List & Annotations (1) Abdominal pain SNOMED Code(s): 10192821 Code(s): R10.9 - UNSPECIFIED ABDOMINAL PAIN Status: Acute Current Visit: Yes Qualifiers: Abdominal location: right upper quadrant Qualified Code(s): R10.11 - Right upper quadrant pain (2) Leukocytosis SNOMED Code(s): 346423744, 481913002 Code(s): D72.829 - ELEVATED WHITE BLOOD CELL COUNT, UNSPECIFIED Status: Acute Current Visit: Yes Qualifiers: Leukocytosis type: unspecified Qualified Code(s): D72.829 - Elevated white blood cell count, unspecified (3) Superior mesenteric artery stenosis SNOMED Code(s): 467306690 Code(s): I77.1 - STRICTURE OF ARTERY Status: Acute Current Visit: Yes (4) Hypokalemia SNOMED Code(s): 43680612 Code(s): E87.6 - HYPOKALEMIA Status: Acute Current Visit: Yes (5) Bony pelvic pain SNOMED Code(s): 500682482 Code(s): M89.8X8 - OTHER SPECIFIED DISORDERS OF BONE, OTHER SITE Status: Acute Current Visit: Yes (6) Right hip pain SNOMED Code(s): 65933031 Code(s): M25.551 - PAIN IN RIGHT HIP Status: Acute Current Visit: Yes (7) Right upper lobe pneumonia SNOMED Code(s): 615232472 Code(s): J18.9 - PNEUMONIA, UNSPECIFIED ORGANISM Status: Acute Current Visit: Yes - Problem List Review Problem List Initiated/Reviewed/Updated: Yes - My Orders Last 24 Hours: My Active Orders 09/03/19 04:51 Magnesium Hydroxide [Milk of Magnesia] 30 ml PO DAILY PRN 09/03/19 08:17 Convert IV to Saline Lock [OM.PC] Routine 09/03/19 09:00 Acetaminophen [Tylenol Extra Strength] 1,000 mg PO TID Azithromycin [Zithromax] 250 mg PO DAILY 09/08/19 09:00 fentaNYL [Duragesic] 12 mcg TRDERM Q7D - Plan Plan:: 1. The radiologist stated there is no acute fractures of the pelvis or hip. We 'll discharge her on Levaquin 500 mg today then 250 mg daily for 6 days. Have her recheck with Dr. Waddell in a week.
--- NOTE | 2019-09-03 12:21 | PCM.DCSUM1 ---
Discharge Summary - Hospital Course Free Text/Narrative:: Hospital course-patient was admitted with presumed UTI and started on Rocephin 1 g a day. Urine had 10-20 WBCs with no RBCs. Patient states she had a fever but she had no fever when she was here. Her vital signs are stable afebrile and her potassium was slightly low. She complained of right hip pain and upper abdominal pain. I thought maybe she have a pneumonia with irritation the diaphragm. Check a chest x-ray showed right upper lobe pneumonia. We added Zithromax on. She had a decreased appetite but that got better. Her abdominal pain disappeared but she says she had hip pain. We did an x-ray right hip and pelvis and no acute changes. The radiologist also reviewed the CT of the pelvis to see if there is anything there. He called me with results to the patient could be causing problems. Was hard to say. CT showed severe stenosis of mesenteric artery. Her urine preliminary grew mixed penelope so most likely she has no UTI. She'll be discharged home on Levaquin 500 mg today then 250 mg daily for 7 days per pharmacy dosing. We offered PT/OT and home health. She defers. She is a [facility]. Brief History: This is an 89-year-old female patient who is a resident of [facility]. She said 2 day history of pain in the lower ribs of her abdomen bilateral. She says it hurts when she takes a deep breath. She had a couple diarrhea stools with no blood. She denies nausea or vomiting but does not have an appetite. She said she didn't check her temperature was 103 yesterday. She denies chills, runny nose, sore throat, dysuria, pyuria, hematuria. She denies cough shortness of breath. She has had a history of cystectomy, appendectomy, hysterectomy, bowel resection. Diagnosis: Stroke: No - Discharge Data Discharge Date: 09/03/19 Discharge Disposition: Home, Self-Care 01 Condition: Good - Referral to Home Health Primary Care Physician: Piero Waddell MD - Discharge Diagnosis/Problem(s) (1) Abdominal pain SNOMED Code(s): 03695612 ICD Code: R10.9 - UNSPECIFIED ABDOMINAL PAIN Status: Acute Current Visit : Yes Qualifiers: Abdominal location: right upper quadrant Qualified Code(s): R10.11 - Right upper quadrant pain (2) Leukocytosis SNOMED Code(s): 348454598, 383128329 ICD Code: D72.829 - ELEVATED WHITE BLOOD CELL COUNT, UNSPECIFIED Status: Acute Current Visit: Yes Qualifiers: Leukocytosis type: unspecified Qualified Code(s): D72.829 - Elevated white blood cell count, unspecified (3) Superior mesenteric artery stenosis SNOMED Code(s): 843444619 ICD Code: I77.1 - STRICTURE OF ARTERY Status: Acute Current Visit: Yes (4) Hypokalemia SNOMED Code(s): 83392490 ICD Code: E87.6 - HYPOKALEMIA Status: Acute Current Visit: Yes (5) Bony pelvic pain SNOMED Code(s): 872105082 ICD Code: M89.8X8 - OTHER SPECIFIED DISORDERS OF BONE, OTHER SITE Status: Acute Current Visit: Yes (6) Right hip pain SNOMED Code(s): 87966402 ICD Code: M25.551 - PAIN IN RIGHT HIP Status: Acute Current Visit: Yes (7) Right upper lobe pneumonia SNOMED Code(s): 288751109 ICD Code: J18.9 - PNEUMONIA, UNSPECIFIED ORGANISM Status: Acute Current Visit: Yes - Patient Instructions Diet: Regular Diet as Tolerated Activity: As Tolerated Driving: Do Not Drive Showering/Bathing: May Shower Notify Provider of: Increased Pain Other/Special Instructions: 1. Check with Dr. Waddell in one week. BMP with the visit. - Discharge Plan *PRESCRIPTION DRUG MONITORING PROGRAM REVIEWED*: Yes *COPY OF PRESCRIPTION DRUG MONITORING REPORT IN PATIENT FOSTER: No Prescriptions/Med Rec: levoFLOXacin [Levaquin] 250 mg PO DAILY #8 ml Home Medications: Home Meds Levothyroxine [Synthroid] 50 mcg PO ACBREAKFAST 12/09/14 [History] Metoprolol Succinate [Toprol Xl] 100 mg PO DAILY 12/09/14 [History] Pantoprazole [ProTONIX] 40 mg PO 0600 #30 tab.cr 12/12/14 [Rx] Furosemide [Lasix] 20 mg PO DAILY 11/10/16 [History] Cholecalciferol (Vitamin D3) [Vitamin D3] 2,000 unit PO DAILY 03/14/19 [History] Docusate Sodium [Stool Softener] 100 cap PO DAILY 03/14/19 [History] Febuxostat [Uloric] 40 mg PO DAILY 03/14/19 [History] Rivaroxaban [Xarelto] 15 mg PO DAILY@1800 03/14/19 [History] fentaNYL [Duragesic] 12 mcg TOP Q7D 03/14/19 [History] polyethylene glycoL 3350 [MiraLAX] 17 gm PO DAILY 03/14/19 [History] Calcium Carbonate [Calcium] 500 mg PO DAILY 09/01/19 [History] Celecoxib [CeleBREX] 200 mg PO DAILY 09/01/19 [History] levoFLOXacin [Levaquin] 250 mg PO DAILY #8 ml 09/03/19 [Rx] Forms: ED Department Discharge Referrals: Piero Waddell MD [Primary Care Provider] - - Discharge Summary/Plan Comment DC Time >30 min.: No - Patient Data Vitals - Most Recent: Last Vital Signs Temp 98.0 F 09/02/19 23:15 Pulse 62 09/03/19 09:24 Resp 17 09/02/19 23:15 BP 109/50 L 09/03/19 09:24 Pulse Ox 96 09/02/19 23:15 Weight - Most Recent: 151 lb 4.8 oz I&O - Last 24 hours: Intake & Output 09/02/19 09/03/19 09/03/19 22:59 06:59 14:59 Intake Total 882 150 Output Total 200 200 Balance 682 -50 CHARAN Results - Last 24 hrs: Microbiology 09/01/19 16:20 Aerobic Blood Culture - Preliminary Blood - Venous NO GROWTH AFTER 1 DAY Anaerobic Blood Culture - Preliminary NO GROWTH AFTER 1 DAY 09/01/19 16:00 Urine Culture - Preliminary Urine, Clean Catch MIXED POSITIVE [place] DAY 1 09/01/19 16:32 Aerobic Blood Culture - Preliminary Blood - Venous - Lab Draw NO GROWTH AFTER 1 DAY Anaerobic Blood Culture - Preliminary NO GROWTH AFTER 1 DAY Med Orders - Current: Current Medications Acetaminophen (Tylenol Extra Strength) 1,000 mg PO TID [facility] Last Admin: 09/03/19 09:24 Dose: Not Given Azithromycin (Zithromax) 250 mg PO DAILY [facility] Stop: 09/06/19 09:01 Last Admin: 09/03/19 09:25 Dose: 250 mg Ceftriaxone Sodium (Rocephin) 1 gm IVPUSH Q24H [facility] Last Admin: 09/02/19 16:47 Dose: 1 gm Febuxostat (Uloric) 40 mg PO DAILY [facility] Last Admin: 09/03/19 09:25 Dose: 40 mg Fentanyl (Duragesic) 12 mcg TRDERM Q7D [facility] Furosemide (Lasix) 20 mg PO DAILY [facility] Last Admin: 09/03/19 09:24 Dose: 20 mg Levothyroxine Sodium (Synthroid) 50 mcg PO ACBREAKFAST [facility] Last Admin: 09/03/19 06:34 Dose: 50 mcg Magnesium Hydroxide (Milk Of Magnesia) 30 ml PO DAILY PRN PRN Reason: Constipation Last Admin: 09/03/19 05:06 Dose: 30 ml Metoprolol Succinate (Toprol Xl) 100 mg PO DAILY [facility] Last Admin: 09/03/19 09:24 Dose: 100 mg Ondansetron HCl (Zofran) 4 mg IV Q8H PRN PRN Reason: Nausea/Vomiting Pantoprazole Sodium (Protonix) 40 mg PO 0600 [facility] Last Admin: 09/03/19 06:33 Dose: 40 mg Rivaroxaban (Xarelto) 15 mg PO DAILY@1800 [facility] Last Admin: 09/02/19 17:53 Dose: 15 mg Sodium Chloride (Saline Flush) 10 ml FLUSH ASDIRECTED PRN PRN Reason: Keep Vein Open Last Admin: 09/03/19 09:27 Dose: 10 ml Discontinued Medications Azithromycin (Zithromax) 500 mg PO ONETIME ONE Stop: 09/02/19 17:53 Last Admin: 09/02/19 18:11 Dose: 500 mg Calcium Carbonate/Glycine (Oyster Shell Calcium) 500 mg PO DAILY [facility] Ceftriaxone Sodium (Rocephin) 1 gm IVPUSH .ONCE ONE Stop: 09/01/19 16:28 Last Admin: 09/01/19 17:24 Dose: 1 gm Celecoxib (Celebrex) 200 mg PO DAILY [facility] Last Admin: 09/02/19 09:33 Dose: 200 mg Docusate Sodium (Colace) mg PO DAILY [facility] Enoxaparin Sodium (Lovenox) 30 mg SUBCUT ONETIME ONE Stop: 09/02/19 10:24 Last Admin: 09/02/19 10:59 Dose: 30 mg Fentanyl (Duragesic) mcg TRDERM ASDIRECTED [facility] Hydromorphone HCl (Dilaudid) 0.5 mg IVPUSH ONETIME ONE Stop: 09/01/19 14:05 Last Admin: 09/01/19 14:19 Dose: 0.5 mg Hydromorphone HCl (Dilaudid) 0.5 mg IVPUSH Q4H PRN PRN Reason: Pain (severe 7-10) Sodium Chloride (Normal Saline) 500 mls @ 500 mls/hr IV .BOLUS ONE Stop: 09/01/19 15:30 Last Admin: 09/01/19 14:34 Dose: 500 mls/hr Sodium Chloride (Normal Saline) 1,000 mls @ 70 mls/hr IV ASDIRECTED [facility] Last Admin: 09/03/19 02:54 Dose: 70 mls/hr Iopamidol (Isovue-370 (76%)) 100 ml IV ONETIME ONE Stop: 09/01/19 14:43 Last Admin: 09/01/19 14:52 Dose: 99 ml Non-Formulary Medication (Cholecalciferol (Vitamin D3) [Vitamin D3]) 1 cap PO DAILY [facility] Ondansetron HCl (Zofran) 4 mg IVPUSH ONETIME ONE Stop: 09/01/19 14:05 Last Admin: 09/01/19 14:19 Dose: 4 mg Polyethylene Glycol (Miralax) gm PO DAILY [facility] Potassium Chloride (Klor-Con M20) 20 meq PO DAILY [facility] Last Admin: 09/02/19 17:44 Dose: Not Given
[2019-09-08] MEDS ORDERED: fentaNYL 12 MCG/HR Transdermal Patch TRDERM SCH (09:00)
== END 2019-09-03 13:55 | disposition home or self-care (01) ==
LOC: FB.ED 13:37 → FB.MS 17:30
PROVIDERS: ADMIT Emergency Medicine; ATTEND Family Medicine
DX: R10.11 Right upper quadrant pain (principal); R10.12 Left upper quadrant pain; I77.1 Stricture of artery; J18.9 Pneumonia, unspecified organism; N30.00 Acute cystitis without hematuria; I25.10 Atherosclerotic heart disease of native coronary artery without angina pectoris; E78.00 Pure hypercholesterolemia, unspecified; E05.90 Thyrotoxicosis, unspecified without thyrotoxic crisis or storm; D72.829 Elevated white blood cell count, unspecified; M10.9 Gout, unspecified; M19.90 Unspecified osteoarthritis, unspecified site; E87.6 Hypokalemia; Z90.49 Acquired absence of other specified parts of digestive tract; Z88.8 Allergy status to other drugs, medicaments and biological substances; Z88.1 Allergy status to other antibiotic agents; Z79.899 Other long term (current) drug therapy; Z87.891 Personal history of nicotine dependence
CPT/HCPCS: 36415; 71046; 73502; 74177; 80053; 81001; 83605; 83690; 84484; 85025; 87040; 87045; 87046; 87086; 87230; 87427; 96361; 96372; 96374; 96375; 96376; 99284; 99285; A9270; G0378; J0696; J1170; J1650; J2405; J7030; J7040; Q9967

== ENCOUNTER 2020-03-30 00:24 | Emergency (ER) | payer MEDICARE, BC ==
[2020-03-30] MEDS ORDERED: Aspirin 81 MG Tab.Chew PO ONE (00:27)
[2020-03-30] MEDS ORDERED: Nitroglycerin 0.4 MG Tab.SL SL ONE ×2 (00:39→01:10)
--- NOTE | 2020-03-30 01:19 | EDM.PDOC ---
ED HPI GENERAL MEDICAL PROBLEM - General Stated Complaint: CHEST PAIN Time Seen by Provider: 03/30/20 00:30 Source of Information: Reports: Patient History Limitations: Reports: No Limitations - History of Present Illness INITIAL COMMENTS - FREE TEXT/NARRATIVE: Patient presented to the ED via EMS because of chest pain which started at 9 pm. The pain is sharp,5/10, radiating to the right shoulder. She denies any N/V but feels short of breath whenever the pain the pain is there. There is no recent cough/cold. She has a history of CABG many years ago. - Related Data Allergies Allergy/AdvReac Type Severity Reaction Status Date / Time allopurinol Allergy Anaphylactic Verified 09/01/19 16:32 Shock atorvastatin calcium Allergy Bronchospas Verified 09/01/19 16:32 [From Lipitor] ms cyclobenzaprine HCl Allergy Cannot Verified 09/01/19 16:32 [From Flexeril] Remember doxycycline Allergy Cannot Verified 09/01/19 16:32 Remember indomethacin Allergy Hives Verified 09/01/19 16:32 lisinopril Allergy Hives Verified 09/01/19 16:32 medium chain triglycerides AdvReac Unknown Cannot Verified 09/01/19 16:32 [From Lipisorb] Remember nutritional AdvReac Unknown Cannot Verified 09/01/19 16:32 supplement,special form Remember [From Lipisorb] Home Meds: Home Meds Levothyroxine [Synthroid] 50 mcg PO ACBREAKFAST 12/09/14 [History] Metoprolol Succinate [Toprol Xl] 100 mg PO DAILY 12/09/14 [History] Pantoprazole [ProTONIX] 40 mg PO 0600 #30 tab.cr 12/12/14 [Rx] Furosemide [Lasix] 20 mg PO DAILY 11/10/16 [History] Cholecalciferol (Vitamin D3) [Vitamin D3] 2,000 unit PO DAILY 03/14/19 [History] Docusate Sodium [Stool Softener] 100 cap PO DAILY 03/14/19 [History] Febuxostat [Uloric] 40 mg PO DAILY 03/14/19 [History] Rivaroxaban [Xarelto] 15 mg PO DAILY@1800 03/14/19 [History] fentaNYL [Duragesic] 12 mcg TOP Q7D 03/14/19 [History] polyethylene glycoL 3350 [MiraLAX] 17 gm PO DAILY 03/14/19 [History] Calcium Carbonate [Calcium] 500 mg PO DAILY 09/01/19 [History] Celecoxib [CeleBREX] 200 mg PO DAILY 09/01/19 [History] levoFLOXacin [Levaquin] 250 mg PO DAILY #8 ml 09/03/19 [Rx] Past Medical History HEENT History: Reports: Impaired Vision 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 Cardiovascular History: Reports: Afib, CAD, High Cholesterol Respiratory History: Reports: Pneumonia, Recurrent Gastrointestinal History: Reports: Colon Polyp, Diverticulosis, Other (See Below) Other Gastrointestinal History: COLON SURGERY FOR RUPTURED POLOP- HAD TO STRETCH COLON WHERE HAD SURGERY HAD X3 Genitourinary History: Reports: Pyelonephritis, UTI, Recurrent 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: Musculoskeletal History: Reports: Arthritis, Back Pain, Chronic, Gout, Other (See Below) Other Musculoskeletal History: RIGHT SCIATICA Neurological History: Reports: Concussion, Head Trauma Endocrine/Metabolic History: Reports: Hyperthyroidism Dermatologic History: Reports: None - Infectious Disease History Infectious Disease History: Reports: Other (See Below) Other Infectious Disease History: PATIENT IS UNSURE - Past Surgical History HEENT Surgical History: Reports: Adenoidectomy, Cataract Surgery, Detached Retina, Tonsillectomy, Other (See Below) Other HEENT Surgeries/Procedures: STONE REMOVED FROM GLAND IN NECK Cardiovascular Surgical History: Reports: Pacer Respiratory Surgical History: Reports: None GI Surgical History: Reports: Appendectomy, Cholecystectomy, Colon, Colonoscopy, Lysis of Adhesions Female Surgical History: Reports: Hysterectomy, Salpingo-Oophorectomy Endocrine Surgical History: Reports: None Neurological Surgical History: Reports: None Musculoskeletal Surgical History: Reports: None, ORIF, Other (See Below) Other Musculoskeletal Surgeries/Procedures:: R HIP FRACTURE ORIF Dermatological Surgical History: Reports: None Social & Family History - Family History Family Medical History: Noncontributory Musculoskeletal: Reports: None Psychiatric: Reports: Schizophrenia Hematologic: Reports: None Oncologic: Reports: Leukemia - Caffeine Use Caffeine Use: Reports: Coffee Caffeine Use Comment: one cup in am ED ROS GENERAL - Review of Systems Review Of Systems: See Below Constitutional: Reports: No Symptoms HEENT: Reports: No Symptoms Respiratory: Reports: No Symptoms Cardiovascular: Reports: Chest Pain Endocrine: Reports: No Symptoms GI/Abdominal: Reports: No Symptoms : Reports: No Symptoms Musculoskeletal: Reports: No Symptoms Skin: Reports: No Symptoms ED EXAM, GENERAL - Physical Exam Exam: See Below Exam Limited By: No Limitations General Appearance: Alert, No Apparent Distress Ears: Normal External Exam, Normal Canal Nose: Normal Inspection, Normal Mucosa, No Blood Throat/Mouth: Normal Inspection, Normal Lips, Normal Teeth, Normal Gums Head: Atraumatic, Normocephalic Neck: Normal Inspection, Supple, Non-Tender, Full Range of Motion Respiratory/Chest: No Respiratory Distress, Lungs Clear, Normal Breath Sounds Cardiovascular: Normal Peripheral Pulses, Regular Rate, Rhythm, No Edema, No Gallop, No JVD, No Murmur, No Rub GI/Abdominal: Normal Bowel Sounds, Soft, Non-Tender, No Organomegaly Back Exam: Normal Inspection, Full Range of Motion Course - Vital Signs Text/Narrative:: Labs/EKG/CXR was reviewed with the patient and verbalized full understanding ASA 324 mg po x1 NTG 0.4 mg SL x 2days - Orders/Labs/Meds Orders: Active Orders 24 hr Category Date Time Status EKG Documentation Completion [RC] ASDIRECTED Care 03/30/20 00:26 Active Chest 1V Frontal [CR] Stat Exams 03/30/20 00:25 Ordered CBC WITH AUTO DIFF [HEME] Stat Lab 03/30/20 00:46 Received COMPREHENSIVE METABOLIC PN,CMP [CHEM] Stat Lab 03/30/20 00:46 Received TROPONIN I [CHEM] Stat Lab 03/30/20 00:46 Received EKG 12 Lead [EK] Routine Ther 03/30/20 00:25 Ordered Meds: Medications Discontinued Medications Generic Name Dose Route Start Last Admin Trade Name Isaiah PRN Reason Stop Dose Admin Aspirin 324 mg 03/30/20 00:27 Aspirin PO 03/30/20 00:28 ONETIME ONE Nitroglycerin 0.4 mg 03/30/20 00:39 Nitrostat SL 03/30/20 00:40 ONETIME ONE Departure - Departure Time of Disposition: 01:45 Disposition: Home, Self-Care 01 Condition: Good Clinical Impression: Chest pain Referrals: Piero Waddell MD [Primary Care Provider] - Additional Instructions: Please read discharge instructions on chest pain Follow up with your doctor this coming week - My Orders Last 24 Hours: My Active Orders 03/30/20 00:25 Chest 1V Frontal [CR] Stat EKG 12 Lead [EK] Routine 03/30/20 00:26 EKG Documentation Completion [RC] ASDIRECTED 03/30/20 00:46 CBC WITH AUTO DIFF [HEME] Stat COMPREHENSIVE METABOLIC PN,CMP [CHEM] Stat TROPONIN I [CHEM] Stat - Assessment/Plan Last 24 Hours: My Active Orders 03/30/20 00:25 Chest 1V Frontal [CR] Stat EKG 12 Lead [EK] Routine 03/30/20 00:26 EKG Documentation Completion [RC] ASDIRECTED 03/30/20 00:46 CBC WITH AUTO DIFF [HEME] Stat COMPREHENSIVE METABOLIC PN,CMP [CHEM] Stat TROPONIN I [CHEM] Stat
[2020-03-30 02:23] VITALS: BP 150/66
--- NOTE | 2020-03-31 12:58 | CR ---
INDICATION: Chest pain. CHEST, 1 VIEW: An AP upright portable view of the chest, 03/30/20, was compared with 09/02/19 and 04/28/19. Bipolar pacemaker leads are unchanged in position. The heart appears to be at the upper limits of normal in size as previously. The aorta is tortuous with calcification in the arch. Overlying EKG leads are noted. An active infiltrate or effusion was not identified. IMPRESSION: No acute process. MTDD
== END 2020-03-30 02:35 | disposition home or self-care (01) ==
LOC: FB.ED 00:24
DX: R07.9 Chest pain, unspecified (principal); I25.10 Atherosclerotic heart disease of native coronary artery without angina pectoris; I48.91 Unspecified atrial fibrillation; E05.90 Thyrotoxicosis, unspecified without thyrotoxic crisis or storm; Z90.710 Acquired absence of both cervix and uterus; Z88.8 Allergy status to other drugs, medicaments and biological substances; Z88.1 Allergy status to other antibiotic agents; Z79.899 Other long term (current) drug therapy; Z79.01 Long term (current) use of anticoagulants; Z88.6 Allergy status to analgesic agent
CPT/HCPCS: 36415; 71045; 80053; 84484; 85025; 93005; 99285-25; A9270-GY

== ENCOUNTER 2020-12-15 22:00 | Inpatient (IN) | payer MEDICARE, BC ==
[2020-12-15] MEDS ORDERED: Morphine 2 MG/ML SYRINGE IVPUSH ONE (22:46)
[2020-12-15] MEDS ORDERED: Ketorolac 30 MG/ML SDV IVPUSH ONE (22:46)
[2020-12-15] MEDS ORDERED: cefTRIAXone 1 GM in Sodium Chloride 0.9% 50 ML IV STA (22:54)
[2020-12-15] MEDS: Sodium Chloride 0.9% 10 ML Syringe FLUSH PRN (23:15)
[2020-12-15] MEDS: Sodium Chloride 0.9% 1,000 ML IV SCH (23:15)
--- NOTE | 2020-12-16 00:08 | EDM.PDOC ---
ED HPI GENERAL MEDICAL PROBLEM - General Chief Complaint: Lower Extremity Injury/Pain Stated Complaint: RT FOOT INFECTION Time Seen by Provider: 12/15/20 22:05 Source of Information: Reports: Patient History Limitations: Reports: No Limitations - History of Present Illness INITIAL COMMENTS - FREE TEXT/NARRATIVE: Patient is an 89 YO WF who presented to the ED because of pain,swelling,redness of the right foot. She had a right toe nail removal 1 week ago and she noticed the redness 1-2 days after surgery which has progressively gotten worse. She was seen at the [facility] yesterday and was given a prescription for Tramadol and Augmentin. She took the tramadol without any relief of her pain. She denies having any fever or chills, nausea/vomiting/diarrhea. Left Foot Pain Score (Numeric/FACES): 4 FOOT -RIGHT Pain Score (Numeric/FACES): 8 - Related Data Allergies Allergy/AdvReac Type Severity Reaction Status Date / Time allopurinol Allergy Anaphylactic Verified 12/15/20 22:48 Shock atorvastatin calcium Allergy Bronchospas Verified 12/15/20 22:48 [From Lipitor] ms cyclobenzaprine HCl Allergy Cannot Verified 12/15/20 22:48 [From Flexeril] Remember doxycycline Allergy Cannot Verified 12/15/20 22:48 Remember indomethacin Allergy Hives Verified 12/15/20 22:48 lisinopril Allergy Hives Verified 12/15/20 22:48 medium chain triglycerides AdvReac Unknown Cannot Verified 12/15/20 22:48 [From Lipisorb] Remember nutritional AdvReac Unknown Cannot Verified 12/15/20 22:48 supplement,special form Remember [From Lipisorb] eggs Allergy Information Uncoded 03/30/20 05:05 Not Available Home Meds: Home Meds Levothyroxine [Synthroid] 50 mcg PO ACBREAKFAST 12/09/14 [History] Metoprolol Succinate [Toprol Xl] 100 mg PO DAILY 12/09/14 [History] Pantoprazole [ProTONIX] 40 mg PO 0600 #30 tab.cr 12/12/14 [Rx] Furosemide [Lasix] 20 mg PO DAILY 11/10/16 [History] Febuxostat [Uloric] 40 mg PO DAILY 03/14/19 [History] Amoxicillin/Potassium Clav [Augmentin 875-125 Tablet] 1 tab PO BID 12/15/20 [History] Celecoxib [CeleBREX] 200 mg PO BID 12/15/20 [History] Isosorbide Mononitrate [Isosorbide Mononitrate ER] 30 mg PO DAILY 12/15/20 [History] Rivaroxaban [Xarelto] 15 mg PO WITHDINNER 12/15/20 [History] traMADol [Ultram] 50 mg PO Q6H PRN 12/15/20 [History] A,C,E/Zinc/Sod Lisbeth/Talha/Lutein [Eye Multivitamin-Lutein Tablet] 1 tab PO DAILY 12/16/20 [History] Cholecalciferol (Vitamin D3) [Vitamin D3] 25 mcg PO BID 12/16/20 [History] Cyanocobalamin (Vitamin B-12) [Vitamin B-12] 500 mcg PO DAILY 12/16/20 [History] Mineral Oil, Light/Mineral Oil [Soothe Xp Eye Drops] 1 drop EYEBOTH QID 12/16/20 [History] Sennosides/Docusate Sodium [Senna-S] 2 tab PO BID 12/16/20 [History] polyethylene glycoL 3350 [MiraLAX] 17 gm PO DAILY 12/16/20 [History] Past Medical History HEENT History: Reports: Impaired Vision 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 Cardiovascular History: Reports: Afib, CAD, High Cholesterol Respiratory History: Reports: Pneumonia, Recurrent Gastrointestinal History: Reports: Colon Polyp, Diverticulosis, Other (See Below) Other Gastrointestinal History: COLON SURGERY FOR RUPTURED POLOP- HAD TO STRETCH COLON WHERE HAD SURGERY HAD X3 Genitourinary History: Reports: Pyelonephritis, UTI, Recurrent 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 ENGINEER History: Reports: Musculoskeletal History: Reports: Arthritis, Back Pain, Chronic, Gout, Other (See Below) Other Musculoskeletal History: RIGHT SCIATICA Neurological History: Reports: Concussion, Head Trauma Endocrine/Metabolic History: Reports: Hyperthyroidism Dermatologic History: Reports: None - Infectious Disease History Infectious Disease History: Reports: Other (See Below) Other Infectious Disease History: PATIENT IS UNSURE - Past Surgical History HEENT Surgical History: Reports: Adenoidectomy, Cataract Surgery, Detached Retina, Tonsillectomy, Other (See Below) Other HEENT Surgeries/Procedures: STONE REMOVED FROM GLAND IN NECK Cardiovascular Surgical History: Reports: Pacer Respiratory Surgical History: Reports: None GI Surgical History: Reports: Appendectomy, Cholecystectomy, Colon, Colonoscopy, Lysis of Adhesions Female Surgical History: Reports: Hysterectomy, Salpingo-Oophorectomy Endocrine Surgical History: Reports: None Neurological Surgical History: Reports: None Musculoskeletal Surgical History: Reports: None, ORIF, Other (See Below) Other Musculoskeletal Surgeries/Procedures:: R HIP FRACTURE ORIF Dermatological Surgical History: Reports: None Social & Family History - Family History Family Medical History: No Pertinent Family History Musculoskeletal: Reports: None Psychiatric: Reports: Schizophrenia Hematologic: Reports: None Oncologic: Reports: Leukemia - Caffeine Use Caffeine Use: Reports: Coffee Caffeine Use Comment: one cup in am Review of Systems - Review of Systems Review Of Systems: See Below Constitutional: Reports: No Symptoms Eyes: Reports: No Symptoms Ears: Reports: No Symptoms Nose: Reports: No Symptoms Mouth/Throat: Reports: No Symptoms Respiratory: Reports: No Symptoms Cardiovascular: Reports: No Symptoms Musculoskeletal: Reports: No Symptoms Skin: Reports: Erythema Neurological: Reports: No Symptoms Psychiatric: Reports: No Symptoms ED EXAM, GENERAL - Physical Exam Exam: See Below Exam Limited By: No Limitations General Appearance: Alert, No Apparent Distress Eye Exam: Bilateral Eye: PERRL Ears: Normal External Exam, Normal Canal Nose: Normal Inspection, Normal Mucosa, No Blood Throat/Mouth: Normal Inspection, Normal Lips Head: Atraumatic, Normocephalic Neck: Normal Inspection, Supple, Non-Tender, Full Range of Motion Respiratory/Chest: No Respiratory Distress, Lungs Clear, Normal Breath Sounds, No Accessory Muscle Use, Chest Non-Tender Cardiovascular: Normal Peripheral Pulses, Regular Rate, Rhythm, No Edema, No Gallop, No JVD, No Murmur GI/Abdominal: Normal Bowel Sounds, Soft, Non-Tender Back Exam: Normal Inspection, Full Range of Motion Extremities: Normal Inspection, Normal Range of Motion, Other (tenderness dorsum of left foot) Skin Exam: Warm, Erythema #1 Interpretation EKG Date: 12/16/20 Time: 00:13 Rhythm: Other (Pacemaker Rhythm) Rate (Beats/Min): 62 [place]: Normal P-Wave: Present QRS: Normal ST-T: Normal QT: Normal Comparison: Change From Previous EKG (Previously AFIB now Pacemaker rhythm) Course - Vital Signs Text/Narrative:: Lab/EKG result was reviewed and discussed with patient NS @ 125 ml/hr Code Status:Full Code Covid test:negative Rocephin 1gm IV x1 Toradol 15 mg IV x1 Morphine 2 mg IV x1 Last Recorded V/S: Last Vital Signs Temp 36.4 C 12/16/20 16:00 Pulse 61 12/16/20 16:00 Resp 17 12/16/20 16:00 BP 98/54 L 12/16/20 16:00 Pulse Ox 97 12/16/20 16:00 - Orders/Labs/Meds Orders: Active Orders 24 hr Category Date Time Status CULTURE BLOOD [BC] Urgent Lab 12/15/20 23:05 Results CULTURE BLOOD [BC] Urgent Lab 12/15/20 23:05 Results Sodium Chloride 0.9% [Saline Flush] Med 12/15/20 22:42 Active 10 ml FLUSH ASDIRECTED PRN Blood Culture x2 Reflex Set [OM.PC] Urgent Oth 12/15/20 22:42 Ordered Saline Lock Insert [OM.PC] Routine Oth 12/15/20 22:42 Ordered EKG 12 Lead [EK] Routine Ther 12/15/20 22:43 Ordered Medication Orders Acetaminophen (Acetaminophen 500 Mg Tab) 500 mg PO Q4H PRN PRN Reason: Fever Hydrocodone Bitart/Acetaminophen (Acetaminophen/Hydrocodone 325-5 Mg Tab) 1 tab PO Q4H PRN PRN Reason: Pain (moderate 4-6) Last Admin: 12/16/20 15:08 Dose: 1 tab Documented by: Admin: 12/16/20 11:01 Dose: 1 tab Documented by: KANDIS Ceftriaxone Sodium (Ceftriaxone 1 Gm Vial) 1 gm IVPUSH Q24H [facility] Celecoxib (Celecoxib 200 Mg Cap) 200 mg PO BID [facility] Last Admin: 12/16/20 09:10 Dose: 200 mg Documented by: KANDIS Febuxostat (Febuxostat 40 Mg Tab) 40 mg PO DAILY [facility] Last Admin: 12/16/20 09:10 Dose: 40 mg Documented by: KANDIS Clindamycin/Sodium Chloride (600 mg/ Premix) 50 mls @ 150 mls/hr IV Q8H RENZO Stop: 12/20/20 23:59 Last Admin: 12/16/20 17:38 Dose: 150 mls/hr Documented by: Infusion: 12/16/20 10:55 Dose: 150 mls/hr Documented by: Admin: 12/16/20 10:35 Dose: 150 mls/hr Documented by: KANDIS Isosorbide Mononitrate (Isosorbide Mononitrate 30 Mg Tab.Er) 30 mg PO DAILY [facility] Last Admin: 12/16/20 09:11 Dose: 30 mg Documented by: KANDIS Levothyroxine Sodium (Levothyroxine 50 Mcg Tab) 50 mcg PO DAILY@0600 [facility] Last Admin: 12/16/20 05:27 Dose: 50 mcg Documented by: VARGHESE Metoprolol Succinate (Metoprolol Succinate 100 Mg Tab.Er) 100 mg PO DAILY [facility] Last Admin: 12/16/20 09:11 Dose: 100 mg Documented by: KANDIS Morphine Sulfate (Morphine 2 Mg/Ml Syringe) 2 mg IVPUSH Q2H PRN PRN Reason: Pain Ondansetron HCl (Ondansetron 4 Mg/2 Ml Sdv) 4 mg IV Q4H PRN PRN Reason: Nausea/Vomiting Pantoprazole Sodium (Pantoprazole 40 Mg Tab.Cr) 40 mg PO DAILY@0600 [facility] Rivaroxaban (Rivaroxaban 15 Mg Tab) 15 mg PO WITHDINNER [facility] Last Admin: 12/16/20 17:37 Dose: 15 mg Documented by: KANDIS Senna/Docusate Sodium (Docusate Sodium/Sennosides 50-8.6 Mg Tab) 1 tab PO BID PRN PRN Reason: Constipation Senna/Docusate Sodium (Docusate Sodium/Sennosides 50-8.6 Mg Tab) 2 tab PO BID [facility] Sodium Chloride (Sodium Chloride 0.9% 10 Ml Syringe) 10 ml FLUSH ASDIRECTED PRN PRN Reason: Keep Vein Open Last Admin: 12/15/20 23:15 Dose: 10 ml Documented by: KANDICE Labs: Laboratory Tests 12/15/20 12/15/20 12/15/20 Range/Units 23:05 23:05 23:05 WBC 12.3 H (3.0-10.3) x10-3/uL RBC 3.66 (3.60-5.20) x10(6)uL Hgb 11.2 L (11.4-15.5) g/dL Hct 34.5 (34.2-48.2) % MCV 94.4 (76.7-100.5) fL MCH 30.5 (23.9-33.9) pg MCHC 32.4 (31.9-34.8) g/dL RDW 14.6 (12.3-16.5) % Plt Count 149 L (151-488) x10(3)uL MPV 11.1 (7.1-12.4) fL Neut % (Auto) 74.9 (30.8-76.2) % Lymph % (Auto) 11.0 L (18.4-52.1) % [place] % (Auto) 12.0 (4.4-15.7) % Eos % (Auto) 1.5 (0.6-8.1) % Baso % (Auto) 0.6 (0.2-1.5) % Neut # (Auto) 9.2 H (1.5-6.3) x10-3/uL Lymph # (Auto) 1.3 (1.0-4.4) x10-3/uL [place] # (Auto) 1.5 H (0.3-1.0) x10-3/uL Eos # (Auto) 0.2 (0.0-0.8) x10-3/uL Baso # (Auto) 0.1 (0.0-0.1) x10-3/uL Sodium 139 (135-145) mmol/L Potassium 4.1 (3.5-5.3) mmol/L Chloride 101 (100-110) mmol/L Carbon Dioxide 29 (21-32) mmol/L BUN 42 H D (7-18) mg/dL Creatinine 1.9 H (0.55-1.02) mg/dL Est Cr Clr Drug Dosing TNP Estimated GFR (MDRD) 25 L (>60) BUN/Creatinine Ratio 22.1 H (9-20) Glucose 137 H (80-116) mg/dL Lactic Acid 1.6 (0.4-2.0) mmol/L Calcium 8.7 (8.6-10.2) mg/dL Total Bilirubin 0.4 (0.1-1.3) mg/dL AST 13 (5-25) IU/L ALT 13 (12-36) U/L Alkaline Phosphatase 72 (56-112) IU/L C-Reactive Protein (0.5-0.9) mg/dL Total Protein 7.2 (6.0-8.0) g/dL Albumin 3.5 (2.9-4.5) g/dL Globulin 3.7 g/dL Albumin/Globulin Ratio 1.0 SARS-CoV-2 RNA (JACINTO) (NEGATIVE) 12/15/20 12/15/20 Range/Units 23:05 23:10 WBC (3.0-10.3) x10-3/uL RBC (3.60-5.20) x10(6)uL Hgb (11.4-15.5) g/dL Hct (34.2-48.2) % MCV (76.7-100.5) fL MCH (23.9-33.9) pg MCHC (31.9-34.8) g/dL RDW (12.3-16.5) % Plt Count (151-488) x10(3)uL MPV (7.1-12.4) fL Neut % (Auto) (30.8-76.2) % Lymph % (Auto) (18.4-52.1) % [place] % (Auto) (4.4-15.7) % Eos % (Auto) (0.6-8.1) % Baso % (Auto) (0.2-1.5) % Neut # (Auto) (1.5-6.3) x10-3/uL Lymph # (Auto) (1.0-4.4) x10-3/uL [place] # (Auto) (0.3-1.0) x10-3/uL Eos # (Auto) (0.0-0.8) x10-3/uL Baso # (Auto) (0.0-0.1) x10-3/uL Sodium (135-145) mmol/L Potassium (3.5-5.3) mmol/L Chloride (100-110) mmol/L Carbon Dioxide (21-32) mmol/L BUN (7-18) mg/dL Creatinine (0.55-1.02) mg/dL Est Cr Clr Drug Dosing Estimated GFR (MDRD) (>60) BUN/Creatinine Ratio (9-20) Glucose (80-116) mg/dL Lactic Acid (0.4-2.0) mmol/L Calcium (8.6-10.2) mg/dL Total Bilirubin (0.1-1.3) mg/dL AST (5-25) IU/L ALT (12-36) U/L Alkaline Phosphatase (56-112) IU/L C-Reactive Protein 11.4 H* (0.5-0.9) mg/dL Total Protein (6.0-8.0) g/dL Albumin (2.9-4.5) g/dL Globulin g/dL Albumin/Globulin Ratio SARS-CoV-2 RNA (JACINTO) Negative (NEGATIVE) Meds: Medications Generic Name Dose Route Start Last Admin Trade Name Freq PRN Reason Stop Dose Admin Acetaminophen 500 mg 12/16/20 00:27 Acetaminophen 500 Mg Tab PO Q4H PRN Fever Hydrocodone Bitart/Acetaminophen 1 tab 12/16/20 00:16 12/16/20 15:08 Acetaminophen/Hydrocodone 325-5 Mg Tab PO 1 tab Q4H PRN Administration Pain (moderate 4-6) Ceftriaxone Sodium 1 gm 12/16/20 21:00 Ceftriaxone 1 Gm Vial IVPUSH Q24H RENZO Celecoxib 200 mg 12/16/20 09:00 12/16/20 09:10 Celecoxib 200 Mg Cap PO 200 mg BID RENZO Administration Febuxostat 40 mg 12/16/20 09:00 12/16/20 09:10 Febuxostat 40 Mg Tab PO 40 mg DAILY RENZO Administration Clindamycin/Sodium Chloride 50 mls @ 150 mls/hr 12/16/20 10:00 12/16/20 17:38 600 mg/ Premix IV 12/20/20 23:59 150 mls/hr Q8H RENZO Administration Isosorbide Mononitrate 30 mg 12/16/20 09:00 12/16/20 09:11 Isosorbide Mononitrate 30 Mg Tab.Er PO 30 mg DAILY RENZO Administration Levothyroxine Sodium 50 mcg 12/16/20 06:00 12/16/20 05:27 Levothyroxine 50 Mcg Tab PO 50 mcg DAILY@0600 RENZO Administration Metoprolol Succinate 100 mg 12/16/20 09:00 12/16/20 09:11 Metoprolol Succinate 100 Mg Tab.Er PO 100 mg DAILY RENZO Administration Morphine Sulfate 2 mg 12/16/20 00:16 Morphine 2 Mg/Ml Syringe IVPUSH Q2H PRN Pain Ondansetron HCl 4 mg 12/16/20 00:16 Ondansetron 4 Mg/2 Ml Sdv IV Q4H PRN Nausea/Vomiting Pantoprazole Sodium 40 mg 12/17/20 06:00 Pantoprazole 40 Mg Tab.Cr PO DAILY@0600 [facility]EN[facility] Rivaroxaban 15 mg 12/16/20 18:00 12/16/20 17:37 Rivaroxaban 15 Mg Tab PO 15 mg WITHDINNER RENZO Administration Senna/Docusate Sodium 1 tab 12/16/20 00:16 Docusate Sodium/Sennosides 50-8.6 Mg Tab PO BID PRN Constipation Senna/Docusate Sodium 2 tab 12/16/20 21:00 Docusate Sodium/Sennosides 50-8.6 Mg Tab PO BID RENZO Sodium Chloride 10 ml 12/15/20 22:42 12/15/20 23:15 Sodium Chloride 0.9% 10 Ml Syringe FLUSH 10 ml ASDIRECTED PRN Administration Keep Vein Open Discontinued Medications Generic Name Dose Route Start Last Admin Trade Name Freq PRN Reason Stop Dose Admin Docusate Sodium 200 mg 12/16/20 09:00 12/16/20 09:10 Docusate Sodium 100 Mg Cap PO 200 mg BID RENZO Administration Sodium Chloride 1,000 mls @ 125 mls/hr 12/15/20 23:00 12/16/20 07:47 Normal Saline IV 125 mls/hr ASDIRECTED RENZO Administration Ceftriaxone Sodium 1 gm/ 50 mls @ 200 mls/hr 12/15/20 22:54 12/15/20 23:35 Sodium Chloride IV 12/15/20 23:08 200 mls/hr NOW STA Administration Ceftriaxone Sodium 1 gm/ 50 mls @ 200 mls/hr 12/16/20 09:00 Sodium Chloride IV Q24H RENZO Ketorolac Tromethamine 15 mg 12/15/20 22:46 12/15/20 23:30 Ketorolac 30 Mg/Ml Sdv IVPUSH 12/15/20 22:47 15 mg ONETIME ONE Administration Levothyroxine Sodium 50 mcg 12/16/20 07:30 Levothyroxine 50 Mcg Tab PO ACBREAKFAST RENZO Morphine Sulfate 2 mg 12/15/20 22:46 12/15/20 23:32 Morphine 2 Mg/Ml Syringe IVPUSH 12/15/20 22:47 2 mg ONETIME ONE Administration Pantoprazole Sodium 40 mg 12/16/20 07:30 12/16/20 06:43 Pantoprazole 40 Mg Tab.Cr PO Not Given ACBREAKFAST RENZO Pantoprazole Sodium Confirm 12/16/20 05:27 12/16/20 05:34 Pantoprazole 40 Mg Tab.Cr Administered 12/16/20 05:28 Not Given Dose 40 mg .ROUTE .STK-MED ONE Departure - Departure Time of Disposition: 12:20 Disposition: Admitted As Inpatient 67 Condition: Good Clinical Impression: Cellulitis, Gout attack, Dehydration, WEN (acute kidney injury) UTI (urinary tract infection) Qualifiers: Urinary tract infection type: acute cystitis Hematuria presence: without hematuria Qualified Code(s): N30.00 - Acute cystitis without hematuria - Discharge Information Sepsis Event Note (ED) - Evaluation Sepsis Screening Result: No Definite Risk - My Orders Last 24 Hours: My Active Orders 12/15/20 22:42 Sodium Chloride 0.9% [Saline Flush] 10 ml FLUSH ASDIRECTED PRN Blood Culture x2 Reflex Set [OM.PC] Urgent Saline Lock Insert [OM.PC] Routine 12/15/20 22:43 EKG 12 Lead [EK] Routine 12/15/20 23:05 CULTURE BLOOD [BC] Urgent CULTURE BLOOD [BC] Urgent - Assessment/Plan Last 24 Hours: My Active Orders 12/15/20 22:42 Sodium Chloride 0.9% [Saline Flush] 10 ml FLUSH ASDIRECTED PRN Blood Culture x2 Reflex Set [OM.PC] Urgent Saline Lock Insert [OM.PC] Routine 12/15/20 22:43 EKG 12 Lead [EK] Routine 12/15/20 23:05 CULTURE BLOOD [BC] Urgent CULTURE BLOOD [BC] Urgent
[2020-12-16] MEDS ORDERED: Ondansetron 4 MG/2 ML SDV IV PRN (00:16)
[2020-12-16] MEDS ORDERED: Morphine 2 MG/ML SYRINGE IVPUSH PRN (00:16)
[2020-12-16] MEDS ORDERED: Acetaminophen 500 MG Tab PO PRN (00:27)
[2020-12-16] MEDS: Levothyroxine 50 MCG Tab PO SCH (05:27)
[2020-12-16] MEDS ORDERED: Pantoprazole 40 MG Tab.CR ONE (05:27)
[2020-12-16] MEDS: Pantoprazole 40 MG Tab.CR PO SCH ×2 (05:28→06:43)
[2020-12-16] MEDS ORDERED: Levothyroxine 50 MCG Tab PO SCH (07:30)
[2020-12-16] MEDS: Sodium Chloride 0.9% 1,000 ML IV SCH (07:47)
[2020-12-16] MEDS ORDERED: cefTRIAXone 1 GM in Sodium Chloride 0.9% 50 ML IV SCH ×2 (09:00→21:00)
[2020-12-16] MEDS ORDERED: Docusate Sodium 100 MG Cap PO SCH (09:00)
[2020-12-16] MEDS: Celecoxib 200 MG Cap PO SCH ×2 (09:10→20:32)
[2020-12-16] MEDS: Febuxostat 40 MG Tab PO SCH (09:10)
[2020-12-16] MEDS: Isosorbide Mononitrate 30 MG Tab.ER PO SCH (09:11)
[2020-12-16] MEDS: Metoprolol Succinate 100 MG Tab.ER PO SCH (09:11)
[2020-12-16] MEDS: Clindamycin in 0.9 % Sod Chlor 600 MG in Premix Bag 1 BAG IV SCH ×4 (10:35→17:38)
[2020-12-16] MEDS: Acetaminophen/HYDROcodone 325-5 MG Tab PO PRN ×3 (11:01→22:25)
--- NOTE | 2020-12-16 14:07 | HP ---
ADMISSION DATE: 12/16/2020 REASON FOR VISIT: Complicated right great toe and foot infection. HISTORY OF PRESENT ILLNESS: Neda Bailey is an 89-year-old female, resides at [facility] in [place], [place], was seen at Emergency Room and admitted to hospital for treatment. About 8 days ago, she had removal of a complicated right great toe deformity. Dr. Stone, Podiatry, [facility] as an outpatient. Did well. Last few days, increasing redness, discharge, pain, swelling, throbbing discomfort, increasing warmth and pain necessitating evaluation. Had been seen in the clinic, had been placed on tramadol and Augmentin, day prior, symptoms not improved requiring hospitalization, intervention, and care. DICTATION ENDS HERE /[id number] YOLANDE/SAJAN
--- NOTE | 2020-12-16 14:09 | HP ---
ADMISSION DATE: 12/16/2020 CONTINUATION: MEDICATIONS: Daily home medications include: 1. MiraLAX 17 g one p.o. daily, constipation. 2. Vitamin B12 500 mcg daily, nutrition. 3. Vitamin D 25 mg b.i.d., nutrition. 4. Multivitamin, lutein one daily, nutrition. 5. Senna-S two p.o. b.i.d., constipation. 6. Xarelto 15 mg daily, DVT prevention. 7. Ultram 50 mg q.6 hours p.r.n., leg pain. 8. Augmentin 875 b.i.d., skin infection. 9. Protonix 40 mg one p.o. daily, GERD. 10.Metoprolol-XL 100 mg one p.o. daily, heart rate control. 11.Levothyroxine 50 mcg one p.o. daily, hypothyroidism. 12.Furosemide 20 mg daily, edema. 13.Celebrex 200 mg b.i.d., pain. 14.Isosorbide 30 mg b.i.d., heart. ALLERGIES: Allergic to allopurinol, atorvastatin, cyclobenzaprine, doxycycline, indomethacin, lisinopril, medium-chain triglycerides, and some nutritional supplements. PAST HEALTH: Significant for operative procedure including recent battery repair of her pacemaker about two weeks ago. She has had a previous cholecystectomy, appendectomy, hysterectomy, bilateral oophorectomy, colon resection for noncancerous disease, and a right hip fracture. Chronic illnesses include medically treated coronary artery disease, hypothyroidism, gastroesophageal reflux, and history of DVT. No other operative procedures, hospitalizations, unusual childhood diseases, major injuries, or fractures. SOCIAL HISTORY: Lives at [facility]. Has been for about four years duration. 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 Four children. Nonsmoker. No vaping. No chewing. No alcohol consumption. REVIEW OF SYSTEMS: CONSTITUTIONAL: Feeling generally well. Few aches and pains. Foot is painful. EYES: Sees well. Wears corrective eyeglasses. EARS: Hears well, some difficulty in crowds. OROPHARYNX: Partial dentures. CHEST: Denies chest pain, palpitations, or dyspnea. RESPIRATORY: No chronic cough, wheeze, or congestion. GI: Regular predictable stools, stool softeners on board. : Good bladder control. No urinary symptoms. SKIN: No lesions, eruptions, or moles. ENDOCRINE: No excessive thirst or urination, allergies noted. PSYCHIATRIC: Mood was stable. NEUROLOGIC: Denies headache, blurred vision, weakness, or tremors. PHYSICAL EXAMINATION: VITAL SIGNS: 1.6 m, 66 kg, 36.4, 67, 121/64, 96% on room air. GENERAL: Elderly female, cooperative, conversant, gives good history. HEENT: Funduscopic benign. Conjunctivae clear. Bright tympanic membranes. Clear nasal discharge. MOUTH AND OROPHARYNX: Clear. No intraoral lesions. Tongue midline. NECK: Benign. Thyroid small. No JVD. CHEST: On auscultation, clear in all lung warren. HEART: On auscultation, no ectopy or murmur. Healing pacemaker. Surgical scar. Left upper chest wall intact. ABDOMEN: Benign. Multiple surgical scars. No hepatosplenomegaly. GENITAL: Deferred. EXTREMITIES: Revealed moderate erythematous changes right foot extending to the ankle medially. Recent toenail removal with healing noted. Peripheral pulses diminished but intact. Sensation normal. LABORATORY STUDIES: White count 12,300, repeat 8600; hemoglobin 11.2, repeat 9.8. BUN 49 and 32, creatinine 1.9 and 1.6, GFR 25 and 30. CRP 11.4. Urine mildly abnormal with large leukocytes, 5 to 10 red cells, 10 to 20 red cells, and bacteria. Culture pending. ASSESSMENT: Complicated cellulitis of right lower extremity, recent toenail removal, multiple medical problems, operative procedures clearly defined. PLAN: Home medications will be adjusted accordingly, treatment in place. No indication for Lovenox. We will treat with intravenous Rocephin, intravenous clindamycin, local care, and comfort measures, should do well. /[id number] YOLANDE/SAJAN
[2020-12-16] MEDS: Rivaroxaban 15 MG Tab PO SCH (17:37)
[2020-12-16] MEDS: cefTRIAXone 1 GM Vial IVPUSH SCH (20:32)
[2020-12-16] MEDS: Sodium Chloride 0.9% 10 ML Syringe FLUSH PRN (20:53)
[2020-12-17] MEDS: Clindamycin in 0.9 % Sod Chlor 600 MG in Premix Bag 1 BAG IV SCH ×6 (01:58→17:42)
[2020-12-17] MEDS: Sodium Chloride 0.9% 10 ML Syringe FLUSH PRN ×6 (02:00→20:15)
[2020-12-17] MEDS: Pantoprazole 40 MG Tab.CR PO SCH (05:40)
[2020-12-17] MEDS: Levothyroxine 50 MCG Tab PO SCH (05:47)
[2020-12-17] MEDS: Celecoxib 200 MG Cap PO SCH ×2 (08:36→20:07)
[2020-12-17] MEDS: Isosorbide Mononitrate 30 MG Tab.ER PO SCH (08:36)
[2020-12-17] MEDS: Acetaminophen/HYDROcodone 325-5 MG Tab PO PRN ×3 (08:37→20:14)
[2020-12-17] MEDS: Febuxostat 40 MG Tab PO SCH (08:37)
[2020-12-17] MEDS: Metoprolol Succinate 100 MG Tab.ER PO SCH (08:37)
--- NOTE | 2020-12-17 09:45 | PCM.SN.2 ---
- Free Text/Narrative Note: [facility] Date: 12/17/2020 Time: 0825 to 0900 Dx: Cellulitis Right Foot with Multiple Medical Issues, Very Poor Peripheral Venous Access RX: Obtain Peripheral Venous Access Procedure: Placement of Peripheral Venous Access Catheter I was requested by the floor RN to obtain venous access after multiple attempts. She is on Xarelto. I attempted twice in her right hand / wrist without success [veins ruptured]. Then I tried in her right forearm with the vein rupturing and I attempted in her left upper lateral chest without success. she will have several ecchymotic areas from all the attempts. I then found a very superficial vein in her left anterior mid forearm and prepped the area with several alcohol wipes. I then inserted and advanced a BD Ins[employer]te [employer] BC Winged 24 GA X 0.75 IN I.V. Catheter times one attempted. I was able to flush 15 ml's of normal saline flush without complications. An Op- Site dressing was applied. She tolerated all of this very well. Azar Cooper CRNA, Dharmesh
--- NOTE | 2020-12-17 12:13 | PN ---
DATE SEEN: 12/17/2020 FOLLOWUP: Cellulitis, lower extremity. HISTORY: Neda Bailey is an 89-year-old female admitted with an infection in her leg, right foot. She had recent extraction removal of dystrophic nail. Feeling much better. IV access has been a problem. IV was started today with some consequence. Otherwise, feeling better. Pain appears to be controlled. Present medications on board include Tylenol and/or hydrocodone for pain. She is on ceftriaxone 1 g q.24 hours, clindamycin 600 mg q.8 hours, complementary care and well being. Other medications are appropriate. No particular complaints or concerns. OBJECTIVE: VITAL SIGNS: 36.4, 63, 127/58, respirations 18, O2 saturation 98%. GENERAL: Appears comfortable. NECK: Benign. Thyroid small. CHEST: Clear in all lung warren. HEART: No ectopy or murmur. ABDOMEN: Benign. The ecchymotic and hemorrhagic area appears to be declining down. Warmth and redness extends to the lower medial 3rd of the left lower leg. ASSESSMENT: Cellulitis, left lower extremity. PLAN: Continue Rocephin and clindamycin, complementary care and well being. Continue IV Rocephin and IV clindamycin. /[id number] YOLANDE/SAJAN
[2020-12-17] MEDS ORDERED: Bisacodyl 10 MG Supp RECTAL ONE (12:30)
[2020-12-17] MEDS: Rivaroxaban 15 MG Tab PO SCH (17:42)
[2020-12-17] MEDS: cefTRIAXone 1 GM Vial IVPUSH SCH (20:08)
[2020-12-18] MEDS: Clindamycin in 0.9 % Sod Chlor 600 MG in Premix Bag 1 BAG IV SCH ×6 (02:33→17:40)
[2020-12-18] MEDS: Sodium Chloride 0.9% 10 ML Syringe FLUSH PRN ×4 (02:35→21:00)
[2020-12-18] MEDS: Levothyroxine 50 MCG Tab PO SCH (05:04)
[2020-12-18] MEDS: Pantoprazole 40 MG Tab.CR PO SCH (05:05)
[2020-12-18] MEDS: Acetaminophen/HYDROcodone 325-5 MG Tab PO PRN ×2 (07:45→14:29)
[2020-12-18] MEDS: Febuxostat 40 MG Tab PO SCH (08:40)
[2020-12-18] MEDS: Isosorbide Mononitrate 30 MG Tab.ER PO SCH (08:41)
[2020-12-18] MEDS: Celecoxib 200 MG Cap PO SCH ×2 (08:41→20:53)
[2020-12-18] MEDS: Metoprolol Succinate 100 MG Tab.ER PO SCH (08:41)
--- NOTE | 2020-12-18 10:31 | PN ---
DATE SEEN: 12/18/2020 SUBJECTIVE: Neda Bailey is a delightful 89-year-old female, admitted with complicated cellulitis of her right great toe. Had a toenail removal per Podiatry prior to admission. Infection was present. Blood cultures are negative. Doing better. Appetite has been problematic. Intake of fluids has been problematic. LABORATORY STUDIES: Reviewed and appropriate, hemoglobin 11 to 9.8, white count 12,386. BUN 42 and 39, creatinine 1.9 and 1.6. GFR 25 and 30. Pain appears to be controlled. PHYSICAL EXAMINATION: VITAL SIGNS: 36.4, 70, 143/68, 20, 99. GENERAL: Soft spoken. CHEST: Clear in all lung warren. HEART: No murmur. ABDOMEN: Benign. EXTREMITIES: Right great toe revealed some ecchymotic and hemorrhagic changes postsurgical, but less warmth, redness, and tenderness. Complicated cellulitis, right lower extremity. ASSESSMENT: Chronic renal failure, stage 4. PLAN: Medications, care, and treatment appropriate, presently on Rocephin 1 g q.24 hours, clindamycin 600 mg q.8 hours, complementary care and well being. Expect at least 5 days of IV antibiotics. /[id number] YOLANDE/SAJAN
[2020-12-18] MEDS: Rivaroxaban 15 MG Tab PO SCH (17:44)
[2020-12-18] MEDS: cefTRIAXone 1 GM Vial IVPUSH SCH (21:00)
[2020-12-19] MEDS: Clindamycin in 0.9 % Sod Chlor 600 MG in Premix Bag 1 BAG IV SCH ×6 (02:01→17:41)
[2020-12-19] MEDS: Pantoprazole 40 MG Tab.CR PO SCH (05:24)
[2020-12-19] MEDS: Acetaminophen/HYDROcodone 325-5 MG Tab PO PRN ×3 (05:24→23:04)
[2020-12-19] MEDS: Levothyroxine 50 MCG Tab PO SCH (05:25)
--- NOTE | 2020-12-19 08:28 | PCM.PN ---
- General Info Date of Service: 12/19/20 Subjective Update: Toe looks less swollen but more red,pain. No systemic symptoms Functional Status: Reports: Pain Controlled - Review of Systems General: Reports: No Symptoms HEENT: Reports: No Symptoms Pulmonary: Reports: No Symptoms - Patient Data Vitals - Most Recent: Last Vital Signs Temp 98.4 F 12/18/20 23:15 Pulse 60 12/18/20 23:15 Resp 18 12/18/20 23:15 BP 136/57 L 12/18/20 23:15 Pulse Ox 96 12/18/20 23:15 Weight - Most Recent: 66.088 kg I&O - Last 24 Hours: Intake & Output 12/18/20 12/19/20 12/19/20 22:59 06:59 14:59 Output Total 200 400 Balance -200 -400 Tuan Results Last 24 Hours: Microbiology 12/15/20 23:05 Aerobic Blood Culture - Preliminary Blood - Venous NO GROWTH AFTER 3 DAYS Anaerobic Blood Culture - Final 12/15/20 23:05 Aerobic Blood Culture - Preliminary Blood - Venous - Lab Draw NO GROWTH AFTER 3 DAYS Anaerobic Blood Culture - Final 12/16/20 05:25 Urine Culture - Final Urine, Voided NO GROWTH AFTER 2 DAYS Med Orders - Current: Current Medications Acetaminophen (Acetaminophen 500 Mg Tab) 500 mg PO Q4H PRN PRN Reason: Fever Hydrocodone Bitart/Acetaminophen (Acetaminophen/Hydrocodone 325-5 Mg Tab) 1 tab PO Q4H PRN PRN Reason: Pain (moderate 4-6) Last Admin: 12/19/20 05:24 Dose: 1 tab Documented by: Ceftriaxone Sodium (Ceftriaxone 1 Gm Vial) 1 gm IVPUSH Q24H [facility] Last Admin: 12/18/20 21:00 Dose: 1 gm Documented by: Celecoxib (Celecoxib 200 Mg Cap) 200 mg PO BID [facility] Last Admin: 12/18/20 20:53 Dose: 200 mg Documented by: Febuxostat (Febuxostat 40 Mg Tab) 40 mg PO DAILY [facility] Last Admin: 12/18/20 08:40 Dose: 40 mg Documented by: Clindamycin/Sodium Chloride (600 mg/ Premix) 50 mls @ 150 mls/hr IV Q8H [facility] Stop: 12/20/20 23:59 Last Admin: 12/19/20 02:01 Dose: 100 mls/hr Documented by: Isosorbide Mononitrate (Isosorbide Mononitrate 30 Mg Tab.Er) 30 mg PO DAILY [facility] Last Admin: 12/18/20 08:41 Dose: 30 mg Documented by: Levothyroxine Sodium (Levothyroxine 50 Mcg Tab) 50 mcg PO DAILY@0600 [facility] Last Admin: 12/19/20 05:25 Dose: 50 mcg Documented by: Metoprolol Succinate (Metoprolol Succinate 100 Mg Tab.Er) 100 mg PO DAILY [facility] Last Admin: 12/18/20 08:41 Dose: 100 mg Documented by: Morphine Sulfate (Morphine 2 Mg/Ml Syringe) 2 mg IVPUSH Q2H PRN PRN Reason: Pain Ondansetron HCl (Ondansetron 4 Mg/2 Ml Sdv) 4 mg IV Q4H PRN PRN Reason: Nausea/Vomiting Last Admin: 12/17/20 11:45 Dose: 4 mg Documented by: Pantoprazole Sodium (Pantoprazole 40 Mg Tab.Cr) 40 mg PO DAILY@0600 [facility] Last Admin: 12/19/20 05:24 Dose: 40 mg Documented by: Rivaroxaban (Rivaroxaban 15 Mg Tab) 15 mg PO WITHDINNER [facility] Last Admin: 12/18/20 17:44 Dose: 15 mg Documented by: Senna/Docusate Sodium (Docusate Sodium/Sennosides 50-8.6 Mg Tab) 1 tab PO BID PRN PRN Reason: Constipation Senna/Docusate Sodium (Docusate Sodium/Sennosides 50-8.6 Mg Tab) 2 tab PO BID [facility] Last Admin: 12/18/20 20:53 Dose: 2 tab Documented by: Sodium Chloride (Sodium Chloride 0.9% 10 Ml Syringe) 10 ml FLUSH ASDIRECTED PRN PRN Reason: Keep Vein Open Last Admin: 12/18/20 21:00 Dose: 10 ml Documented by: Discontinued Medications Bisacodyl (Bisacodyl 10 Mg Supp) 10 mg RECTAL ONETIME ONE Stop: 12/17/20 12:31 Last Admin: 12/17/20 13:32 Dose: Not Given Documented by: Docusate Sodium (Docusate Sodium 100 Mg Cap) 200 mg PO BID [facility] Last Admin: 12/16/20 09:10 Dose: 200 mg Documented by: Sodium Chloride (Normal Saline) 1,000 mls @ 125 mls/hr IV ASDIRECTED [facility] Last Admin: 12/16/20 07:47 Dose: 125 mls/hr Documented by: Ceftriaxone Sodium 1 gm/ (Sodium Chloride) 50 mls @ 200 mls/hr IV NOW STA Stop: 12/15/20 23:08 Last Admin: 12/15/20 23:35 Dose: 200 mls/hr Documented by: Ceftriaxone Sodium 1 gm/ (Sodium Chloride) 50 mls @ 200 mls/hr IV Q24H [facility] Ketorolac Tromethamine (Ketorolac 30 Mg/Ml Sdv) 15 mg IVPUSH ONETIME ONE Stop: 12/15/20 22:47 Last Admin: 12/15/20 23:30 Dose: 15 mg Documented by: Levothyroxine Sodium (Levothyroxine 50 Mcg Tab) 50 mcg PO ACBREAKFAST [facility] Morphine Sulfate (Morphine 2 Mg/Ml Syringe) 2 mg IVPUSH ONETIME ONE Stop: 12/15/20 22:47 Last Admin: 12/15/20 23:32 Dose: 2 mg Documented by: Pantoprazole Sodium (Pantoprazole 40 Mg Tab.Cr) 40 mg PO ACBREAKFAST [facility] Last Admin: 12/16/20 06:43 Dose: Not Given Documented by: Pantoprazole Sodium (Pantoprazole 40 Mg Tab.Cr) Confirm Administered Dose 40 mg .ROUTE .STK-MED ONE Stop: 12/16/20 05:28 Last Admin: 12/16/20 05:34 Dose: Not Given Documented by: - Exam General: Alert Extremities: Other (Red toe,tender,red.) Neurological: No New Focal Deficit - Patient Data Result Diagrams: 12/16/20 06:20 12/16/20 06:03 Tuan Results Last 24 hrs: Microbiology 12/15/20 23:05 Aerobic Blood Culture - Preliminary Blood - Venous NO GROWTH AFTER 3 DAYS Anaerobic Blood Culture - Final 12/15/20 23:05 Aerobic Blood Culture - Preliminary Blood - Venous - Lab Draw NO GROWTH AFTER 3 DAYS Anaerobic Blood Culture - Final 12/16/20 05:25 Urine Culture - Final Urine, Voided NO GROWTH AFTER 2 DAYS Sepsis Event Note - Evaluation Sepsis Screening Result: No Definite Risk - Focused Exam Vital Signs: Vital Signs Temp Pulse Resp BP Pulse Ox 12/18/20 23:15 98.4 F 60 18 136/57 L 96 - Problem List & Annotations (1) Toe infection SNOMED Code(s): 017341402 Code(s): L08.9 - LOCAL INFECTION OF THE SKIN AND SUBCUTANEOUS TISSUE, UNSP Status: Acute Current Visit: Yes (2) CKD (chronic kidney disease) SNOMED Code(s): 856376440 Code(s): N18.9 - CHRONIC KIDNEY DISEASE, UNSPECIFIED Status: Chronic Current Visit: Yes Qualifiers: Chronic kidney disease stage: stage 4 (severe) Qualified Code(s): N18.4 - Chronic kidney disease, stage 4 (severe) (3) Cellulitis SNOMED Code(s): 373692029 Code(s): L03.90 - CELLULITIS, UNSPECIFIED Status: Acute Current Visit: Yes Qualifiers: Site of cellulitis of extremity: toe (4) HTN (hypertension) SNOMED Code(s): 67838669 Code(s): I10 - ESSENTIAL (PRIMARY) HYPERTENSION Status: Chronic Current Visit: No Qualifiers: Hypertension type: essential hypertension Qualified Code(s): I10 - Essenti al (primary) hypertension - Problem List Review Problem List Initiated/Reviewed/Updated: Yes - My Orders Last 24 Hours: My Active Orders 12/19/20 08:18 US Ankle/Brachial Index w stre Timed 12/20/20 05:11 C-REACTIVE PROTEIN [CHEM] AM CBC WITH AUTO DIFF [HEME] AM ESR [SEDIMENTATION RATE MANUAL] [HEME] AM - Plan Plan:: She is on Clindamycin/ Rocephin. Continue. Obtain US for peripheral vascular disease. Consider MRI for osteo if no improvement
[2020-12-19] MEDS: Celecoxib 200 MG Cap PO SCH ×2 (08:56→20:27)
[2020-12-19] MEDS: Isosorbide Mononitrate 30 MG Tab.ER PO SCH (08:57)
[2020-12-19] MEDS: Febuxostat 40 MG Tab PO SCH (08:58)
[2020-12-19] MEDS: Metoprolol Succinate 100 MG Tab.ER PO SCH (08:59)
[2020-12-19] MEDS: Rivaroxaban 15 MG Tab PO SCH (17:47)
[2020-12-19] MEDS: cefTRIAXone 1 GM Vial IVPUSH SCH (20:36)
[2020-12-20] MEDS: Clindamycin in 0.9 % Sod Chlor 600 MG in Premix Bag 1 BAG IV SCH ×6 (01:45→17:24)
[2020-12-20] MEDS: Pantoprazole 40 MG Tab.CR PO SCH (05:47)
[2020-12-20] MEDS: Levothyroxine 50 MCG Tab PO SCH (05:47)
[2020-12-20] MEDS: Celecoxib 200 MG Cap PO SCH ×2 (08:08→21:52)
[2020-12-20] MEDS: Isosorbide Mononitrate 30 MG Tab.ER PO SCH (08:08)
[2020-12-20] MEDS: Metoprolol Succinate 100 MG Tab.ER PO SCH (08:09)
[2020-12-20] MEDS: Febuxostat 40 MG Tab PO SCH (08:09)
--- NOTE | 2020-12-20 08:23 | PCM.PN ---
- General Info Date of Service: 12/20/20 Subjective Update: Toe looks less swollen,less red,but still painful. No systemic symptoms - Review of Systems Pulmonary: Reports: No Symptoms Cardiovascular: Reports: No Symptoms Gastrointestinal: Reports: No Symptoms Genitourinary: Reports: No Symptoms - Patient Data Vitals - Most Recent: Last Vital Signs Temp 98.4 F 12/19/20 20:24 Pulse 62 12/20/20 08:09 Resp 16 12/19/20 20:24 BP 146/72 H 12/20/20 08:09 Pulse Ox 99 12/19/20 20:24 Weight - Most Recent: 66.088 kg I&O - Last 24 Hours: Intake & Output 12/19/20 12/20/20 12/20/20 22:59 06:59 14:59 Intake Total 600 100 Output Total 300 Balance 300 100 Lab Results Last 24 Hours: Laboratory Results - last 24 hr 12/20/20 12/20/20 Range/Units 06:15 06:15 WBC 6.1 (3.0-10.3) x10-3/uL RBC 2.93 L (3.60-5.20) x10(6)uL Hgb 9.1 L (11.4-15.5) g/dL Hct 27.6 L (34.2-48.2) % MCV 94.2 (76.7-100.5) fL MCH 30.9 (23.9-33.9) pg MCHC 32.8 (31.9-34.8) g/dL RDW 14.6 (12.3-16.5) % Plt Count 168 (151-488) x10(3)uL MPV 9.9 (7.1-12.4) fL Neut % (Auto) 58.9 (30.8-76.2) % Lymph % (Auto) 23.5 (18.4-52.1) % [place] % (Auto) 11.5 (4.4-15.7) % Eos % (Auto) 5.0 (0.6-8.1) % Baso % (Auto) 1.1 (0.2-1.5) % Neut # (Auto) 3.6 (1.5-6.3) x10-3/uL Lymph # (Auto) 1.4 (1.0-4.4) x10-3/uL [place] # (Auto) 0.7 (0.3-1.0) x10-3/uL Eos # (Auto) 0.3 (0.0-0.8) x10-3/uL Baso # (Auto) 0.1 (0.0-0.1) x10-3/uL ESR 39 H (0-20) mm/hr C-Reactive Protein 5.7 H* (0.5-0.9) mg/dL Tuan Results Last 24 Hours: Microbiology 12/15/20 23:05 Aerobic Blood Culture - Preliminary Blood - Venous - Lab Draw NO GROWTH AFTER 4 DAYS Anaerobic Blood Culture - Final 12/15/20 23:05 Aerobic Blood Culture - Preliminary Blood - Venous NO GROWTH AFTER 4 DAYS Anaerobic Blood Culture - Final Med Orders - Current: Current Medications Acetaminophen (Acetaminophen 500 Mg Tab) 500 mg PO Q4H PRN PRN Reason: Fever Hydrocodone Bitart/Acetaminophen (Acetaminophen/Hydrocodone 325-5 Mg Tab) 1 tab PO Q4H PRN PRN Reason: Pain (moderate 4-6) Last Admin: 12/19/20 23:04 Dose: 1 tab Documented by: Ceftriaxone Sodium (Ceftriaxone 1 Gm Vial) 1 gm IVPUSH Q24H [facility] Last Admin: 12/19/20 20:36 Dose: 1 gm Documented by: Celecoxib (Celecoxib 200 Mg Cap) 200 mg PO BID [facility] Last Admin: 12/20/20 08:08 Dose: 200 mg Documented by: Febuxostat (Febuxostat 40 Mg Tab) 40 mg PO DAILY [facility] Last Admin: 12/20/20 08:09 Dose: 40 mg Documented by: Clindamycin/Sodium Chloride (600 mg/ Premix) 50 mls @ 150 mls/hr IV Q8H [facility] Stop: 12/20/20 23:59 Last Admin: 12/20/20 01:45 Dose: 100 mls/hr Documented by: Isosorbide Mononitrate (Isosorbide Mononitrate 30 Mg Tab.Er) 30 mg PO DAILY [facility] Last Admin: 12/20/20 08:08 Dose: 30 mg Documented by: Levothyroxine Sodium (Levothyroxine 50 Mcg Tab) 50 mcg PO DAILY@0600 [facility] Last Admin: 12/20/20 05:47 Dose: 50 mcg Documented by: Metoprolol Succinate (Metoprolol Succinate 100 Mg Tab.Er) 100 mg PO DAILY [facility] Last Admin: 12/20/20 08:09 Dose: 100 mg Documented by: Morphine Sulfate (Morphine 2 Mg/Ml Syringe) 2 mg IVPUSH Q2H PRN PRN Reason: Pain Ondansetron HCl (Ondansetron 4 Mg/2 Ml Sdv) 4 mg IV Q4H PRN PRN Reason: Nausea/Vomiting Last Admin: 12/17/20 11:45 Dose: 4 mg Documented by: Pantoprazole Sodium (Pantoprazole 40 Mg Tab.Cr) 40 mg PO DAILY@0600 [facility] Last Admin: 12/20/20 05:47 Dose: 40 mg Documented by: Rivaroxaban (Rivaroxaban 15 Mg Tab) 15 mg PO WITHDINNER [facility] Last Admin: 12/19/20 17:47 Dose: 15 mg Documented by: Senna/Docusate Sodium (Docusate Sodium/Sennosides 50-8.6 Mg Tab) 1 tab PO BID PRN PRN Reason: Constipation Senna/Docusate Sodium (Docusate Sodium/Sennosides 50-8.6 Mg Tab) 2 tab PO BID [facility] Last Admin: 12/20/20 08:08 Dose: Not Given Documented by: Sodium Chloride (Sodium Chloride 0.9% 10 Ml Syringe) 10 ml FLUSH ASDIRECTED PRN PRN Reason: Keep Vein Open Last Admin: 12/18/20 21:00 Dose: 10 ml Documented by: Discontinued Medications Bisacodyl (Bisacodyl 10 Mg Supp) 10 mg RECTAL ONETIME ONE Stop: 12/17/20 12:31 Last Admin: 12/17/20 13:32 Dose: Not Given Documented by: Docusate Sodium (Docusate Sodium 100 Mg Cap) 200 mg PO BID [facility] Last Admin: 12/16/20 09:10 Dose: 200 mg Documented by: Sodium Chloride (Normal Saline) 1,000 mls @ 125 mls/hr IV ASDIRECTED [facility] Last Admin: 12/16/20 07:47 Dose: 125 mls/hr Documented by: Ceftriaxone Sodium 1 gm/ (Sodium Chloride) 50 mls @ 200 mls/hr IV NOW STA Stop: 12/15/20 23:08 Last Admin: 12/15/20 23:35 Dose: 200 mls/hr Documented by: Ceftriaxone Sodium 1 gm/ (Sodium Chloride) 50 mls @ 200 mls/hr IV Q24H [facility] Ketorolac Tromethamine (Ketorolac 30 Mg/Ml Sdv) 15 mg IVPUSH ONETIME ONE Stop: 12/15/20 22:47 Last Admin: 12/15/20 23:30 Dose: 15 mg Documented by: Levothyroxine Sodium (Levothyroxine 50 Mcg Tab) 50 mcg PO ACBREAKFAST [facility] Morphine Sulfate (Morphine 2 Mg/Ml Syringe) 2 mg IVPUSH ONETIME ONE Stop: 12/15/20 22:47 Last Admin: 12/15/20 23:32 Dose: 2 mg Documented by: Pantoprazole Sodium (Pantoprazole 40 Mg Tab.Cr) 40 mg PO ACBREAKFAST [facility] Last Admin: 12/16/20 06:43 Dose: Not Given Documented by: Pantoprazole Sodium (Pantoprazole 40 Mg Tab.Cr) Confirm Administered Dose 40 mg .ROUTE .STK-MED ONE Stop: 12/16/20 05:28 Last Admin: 12/16/20 05:34 Dose: Not Given Documented by: - Exam General: Alert HEENT: Pupils Equal Extremities: Redness, Other (tender first Metatarsal joint) - Patient Data Lab Results Last 24 hrs: Laboratory Results - last 24 hr 12/20/20 12/20/20 Range/Units 06:15 06:15 WBC 6.1 (3.0-10.3) x10-3/uL RBC 2.93 L (3.60-5.20) x10(6)uL Hgb 9.1 L (11.4-15.5) g/dL Hct 27.6 L (34.2-48.2) % MCV 94.2 (76.7-100.5) fL MCH 30.9 (23.9-33.9) pg MCHC 32.8 (31.9-34.8) g/dL RDW 14.6 (12.3-16.5) % Plt Count 168 (151-488) x10(3)uL MPV 9.9 (7.1-12.4) fL Neut % (Auto) 58.9 (30.8-76.2) % Lymph % (Auto) 23.5 (18.4-52.1) % [place] % (Auto) 11.5 (4.4-15.7) % Eos % (Auto) 5.0 (0.6-8.1) % Baso % (Auto) 1.1 (0.2-1.5) % Neut # (Auto) 3.6 (1.5-6.3) x10-3/uL Lymph # (Auto) 1.4 (1.0-4.4) x10-3/uL [place] # (Auto) 0.7 (0.3-1.0) x10-3/uL Eos # (Auto) 0.3 (0.0-0.8) x10-3/uL Baso # (Auto) 0.1 (0.0-0.1) x10-3/uL ESR 39 H (0-20) mm/hr C-Reactive Protein 5.7 H* (0.5-0.9) mg/dL Result Diagrams: 12/20/20 06:15 12/16/20 06:03 Tuan Results Last 24 hrs: Microbiology 12/15/20 23:05 Aerobic Blood Culture - Preliminary Blood - Venous - Lab Draw NO GROWTH AFTER 4 DAYS Anaerobic Blood Culture - Final 12/15/20 23:05 Aerobic Blood Culture - Preliminary Blood - Venous NO GROWTH AFTER 4 DAYS Anaerobic Blood Culture - Final Sepsis Event Note - Evaluation Sepsis Screening Result: No Definite Risk - Focused Exam Vital Signs: Vital Signs Temp Pulse Pulse Resp BP BP Pulse Ox 12/20/20 08:09 62 146/72 H 12/20/20 08:08 146/72 H 12/19/20 20:24 98.4 F 60 16 139/58 L 99 - Problem List & Annotations (1) Toe infection SNOMED Code(s): 106037425 Code(s): L08.9 - LOCAL INFECTION OF THE SKIN AND SUBCUTANEOUS TISSUE, UNSP Status: Acute Current Visit: Yes (2) CKD (chronic kidney disease) SNOMED Code(s): 358341565 Code(s): N18.9 - CHRONIC KIDNEY DISEASE, UNSPECIFIED Status: Chronic Current Visit: Yes Qualifiers: Chronic kidney disease stage: stage 4 (severe) Qualified Code(s): N18.4 - Chronic kidney disease, stage 4 (severe) (3) Cellulitis SNOMED Code(s): 192170278 Code(s): L03.90 - CELLULITIS, UNSPECIFIED Status: Acute Current Visit: Yes Qualifiers: Site of cellulitis of extremity: toe (4) HTN (hypertension) SNOMED Code(s): 20803010 Code(s): I10 - ESSENTIAL (PRIMARY) HYPERTENSION Status: Chronic Current Visit: No Qualifiers: Hypertension type: essential hypertension Qualified Code(s): I10 - Essential (primary) hypertension (5) Gout attack SNOMED Code(s): 981058435 Code(s): M10.9 - GOUT, UNSPECIFIED Status: Acute Current Visit: Yes Qualifiers: Gout site: toe - Problem List Review Problem List Initiated/Reviewed/Updated: Yes - My Orders Last 24 Hours: My Active Orders 12/19/20 08:18 US Ankle/Brachial Index w stre Timed 12/20/20 09:00 predniSONE 20 mg PO BID - Plan Plan:: She is on Clindamycin/ Rocephin. may stop Clinda today ,Continue Rocephin,probably switch to oral Meds tomorrow.Start Prednisone for Gout. It appears to be a gout attach more than anything
[2020-12-20] MEDS: Acetaminophen/HYDROcodone 325-5 MG Tab PO PRN ×2 (10:29→21:52)
[2020-12-20] MEDS: predniSONE 20 MG Tab PO SCH ×2 (10:29→21:52)
[2020-12-20] MEDS: Sodium Chloride 0.9% 10 ML Syringe FLUSH PRN ×2 (10:31→17:34)
[2020-12-20] MEDS: Rivaroxaban 15 MG Tab PO SCH (17:23)
[2020-12-20] MEDS: cefTRIAXone 1 GM Vial IVPUSH SCH (22:45)
[2020-12-21] MEDS: Acetaminophen/HYDROcodone 325-5 MG Tab PO PRN (01:31)
[2020-12-21] MEDS: Pantoprazole 40 MG Tab.CR PO SCH (05:53)
[2020-12-21] MEDS: Levothyroxine 50 MCG Tab PO SCH (05:53)
[2020-12-21] MEDS: Metoprolol Succinate 100 MG Tab.ER PO SCH (08:40)
[2020-12-21] MEDS: Isosorbide Mononitrate 30 MG Tab.ER PO SCH (08:40)
[2020-12-21] MEDS: Febuxostat 40 MG Tab PO SCH (08:41)
[2020-12-21] MEDS: Celecoxib 200 MG Cap PO SCH ×2 (08:41→21:31)
[2020-12-21] MEDS: predniSONE 20 MG Tab PO SCH ×2 (08:46→17:27)
--- NOTE | 2020-12-21 08:51 | PCM.PN ---
- General Info Date of Service: 12/21/20 Admission Dx/Problem (Free Text): Pain, swelling, erythema of right great toe and foot status post toenail removal Subjective Update: Patient states that she thinks she is feeling better today and that she has less pain in her toe and foot. She states that she cannot move her toes but it is painful Functional Status: Reports: Pain Controlled, Tolerating Diet, Urinating - Review of Systems General: Reports: Weakness, Fatigue HEENT: Reports: No Symptoms Pulmonary: Reports: No Symptoms Cardiovascular: Reports: No Symptoms Gastrointestinal: Reports: No Symptoms Genitourinary: Reports: No Symptoms Musculoskeletal: Reports: Foot Pain Skin: Reports: Other (Infection) Neurological: Reports: Weakness Psychiatric: Reports: No Symptoms - Patient Data Vitals - Most Recent: Last Vital Signs Temp 36.4 C 12/21/20 07:53 Pulse 88 12/21/20 08:40 Resp 18 12/21/20 07:53 BP 138/83 12/21/20 08:40 Pulse Ox 98 12/21/20 07:53 Weight - Most Recent: 66.088 kg I&O - Last 24 Hours: Intake & Output 12/20/20 12/21/20 12/21/20 22:59 06:59 14:59 Intake Total 200 Output Total 300 350 Balance -300 -150 Tuan Results Last 24 Hours: Microbiology 12/15/20 23:05 Aerobic Blood Culture - Final Blood - Venous NO GROWTH AFTER 5 DAYS Anaerobic Blood Culture - Final 12/15/20 23:05 Aerobic Blood Culture - Final Blood - Venous - Lab Draw NO GROWTH AFTER 5 DAYS Anaerobic Blood Culture - Final Med Orders - Current: Current Medications Acetaminophen (Acetaminophen 500 Mg Tab) 500 mg PO Q4H PRN PRN Reason: Fever Hydrocodone Bitart/Acetaminophen (Acetaminophen/Hydrocodone 325-5 Mg Tab) 1 tab PO Q4H PRN PRN Reason: Pain (moderate 4-6) Last Admin: 12/21/20 01:31 Dose: 1 tab Documented by: Ceftriaxone Sodium (Ceftriaxone 1 Gm Vial) 1 gm IVPUSH Q24H REPLACED BY [facility] Last Admin: 12/20/20 22:45 Dose: 1 gm Documented by: Celecoxib (Celecoxib 200 Mg Cap) 200 mg PO BID [facility] Last Admin: 12/21/20 08:41 Dose: 200 mg Documented by: Febuxostat (Febuxostat 40 Mg Tab) 40 mg PO DAILY REPLACED BY [facility] Last Admin: 12/21/20 08:41 Dose: 40 mg Documented by: Isosorbide Mononitrate (Isosorbide Mononitrate 30 Mg Tab.Er) 30 mg PO DAILY REPLACED BY [facility] Last Admin: 12/21/20 08:40 Dose: 30 mg Documented by: Levothyroxine Sodium (Levothyroxine 50 Mcg Tab) 50 mcg PO DAILY@0600 REPLACED BY [facility] Last Admin: 12/21/20 05:53 Dose: 50 mcg Documented by: Metoprolol Succinate (Metoprolol Succinate 100 Mg Tab.Er) 100 mg PO DAILY REPLACED BY [facility] Last Admin: 12/21/20 08:40 Dose: 100 mg Documented by: Morphine Sulfate (Morphine 2 Mg/Ml Syringe) 2 mg IVPUSH Q2H PRN PRN Reason: Pain Ondansetron HCl (Ondansetron 4 Mg/2 Ml Sdv) 4 mg IV Q4H PRN PRN Reason: Nausea/Vomiting Last Admin: 12/17/20 11:45 Dose: 4 mg Documented by: Pantoprazole Sodium (Pantoprazole 40 Mg Tab.Cr) 40 mg PO DAILY@0600 REPLACED BY [facility] Last Admin: 12/21/20 05:53 Dose: 40 mg Documented by: Prednisone (Prednisone 20 Mg Tab) 20 mg PO BID@0800,1800 REPLACED BY [facility] Last Admin: 12/21/20 08:46 Dose: 20 mg Documented by: Rivaroxaban (Rivaroxaban 15 Mg Tab) 15 mg PO WITHDINNER REPLACED BY [facility] Last Admin: 12/20/20 17:23 Dose: 15 mg Documented by: Senna/Docusate Sodium (Docusate Sodium/Sennosides 50-8.6 Mg Tab) 1 tab PO BID PRN PRN Reason: Constipation Senna/Docusate Sodium (Docusate Sodium/Sennosides 50-8.6 Mg Tab) 2 tab PO BID REPLACED BY [facility] Last Admin: 12/21/20 08:39 Dose: 2 tab Documented by: Sodium Chloride (Sodium Chloride 0.9% 10 Ml Syringe) 10 ml FLUSH ASDIRECTED PRN PRN Reason: Keep Vein Open Last Admin: 12/20/20 17:34 Dose: 10 ml Documented by: Discontinued Medications Bisacodyl (Bisacodyl 10 Mg Supp) 10 mg RECTAL ONETIME ONE Stop: 12/17/20 12:31 Last Admin: 12/17/20 13:32 Dose: Not Given Documented by: Docusate Sodium (Docusate Sodium 100 Mg Cap) 200 mg PO BID REPLACED BY [facility] Last Admin: 12/16/20 09:10 Dose: 200 mg Documented by: Sodium Chloride (Normal Saline) 1,000 mls @ 125 mls/hr IV ASDIRECTED REPLACED BY [facility] Last Admin: 12/16/20 07:47 Dose: 125 mls/hr Documented by: Ceftriaxone Sodium 1 gm/ (Sodium Chloride) 50 mls @ 200 mls/hr IV NOW STA Stop: 12/15/20 23:08 Last Admin: 12/15/20 23:35 Dose: 200 mls/hr Documented by: Ceftriaxone Sodium 1 gm/ (Sodium Chloride) 50 mls @ 200 mls/hr IV Q24H [facility] Clindamycin/Sodium Chloride (600 mg/ Premix) 50 mls @ 150 mls/hr IV Q8H REPLACED BY [facility] Stop: 12/20/20 23:59 Last Admin: 12/20/20 17:24 Dose: 100 mls/hr Documented by: Ketorolac Tromethamine (Ketorolac 30 Mg/Ml Sdv) 15 mg IVPUSH ONETIME ONE Stop: 12/15/20 22:47 Last Admin: 12/15/20 23:30 Dose: 15 mg Documented by: Levothyroxine Sodium (Levothyroxine 50 Mcg Tab) 50 mcg PO ACBREAKFAST REPLACED BY [facility] Morphine Sulfate (Morphine 2 Mg/Ml Syringe) 2 mg IVPUSH ONETIME ONE Stop: 12/15/20 22:47 Last Admin: 12/15/20 23:32 Dose: 2 mg Documented by: Pantoprazole Sodium (Pantoprazole 40 Mg Tab.Cr) 40 mg PO ACBREAKFAST REPLACED BY [facility] Last Admin: 12/16/20 06:43 Dose: Not Given Documented by: Pantoprazole Sodium (Pantoprazole 40 Mg Tab.Cr) Confirm Administered Dose 40 mg .ROUTE .STK-MED ONE Stop: 12/16/20 05:28 Last Admin: 12/16/20 05:34 Dose: Not Given Documented by: Prednisone (Prednisone 20 Mg Tab) 20 mg PO BID REPLACED BY [facility] Last Admin: 12/20/20 21:52 Dose: 20 mg Documented by: - Exam Quality Assessment: Supplemental Oxygen, DVT Prophylaxis, Skin Breakdown General: Alert, Oriented, Cooperative, No Acute Distress HEENT: EOMI, Other (Left eye chronic blindness) Lungs: Clear to Auscultation Cardiovascular: Regular Rate, Regular Rhythm Extremities: Pedal Edema, Other (Right great toe and distal/forefoot erythema, edema, tenderness to palpation, sensation to light touch and capillary refill intact) Peripheral Pulses: 2+: Radial (L), Radial (R) Skin: Warm, Dry Wound/Incisions: No Drainage, Erythema, Erythema Improving Psy/Mental Status: Alert, Normal Affect, Normal Mood - Patient Data Result Diagrams: 12/20/20 06:15 12/16/20 06:03 Tuan Results Last 24 hrs: Microbiology 12/15/20 23:05 Aerobic Blood Culture - Final Blood - Venous NO GROWTH AFTER 5 DAYS Anaerobic Blood Culture - Final 12/15/20 23:05 Aerobic Blood Culture - Final Blood - Venous - Lab Draw NO GROWTH AFTER 5 DAYS Anaerobic Blood Culture - Final Sepsis Event Note - Evaluation Sepsis Screening Result: No Definite Risk - Focused Exam Vital Signs: Vital Signs Temp Pulse Pulse Resp BP BP Pulse Ox 12/21/20 08:40 88 138/83 12/21/20 07:53 36.4 C 88 18 138/83 98 - Problem List & Annotations (1) Gout SNOMED Code(s): 69806568 Code(s): M10.9 - GOUT, UNSPECIFIED Status: Chronic Priority: Medium Current Visit: No Annotation/Comment:: cont. Uloric (2) Afib, Atrial fibrillation SNOMED Code(s): 79387668 Code(s): I48.91 - UNSPECIFIED ATRIAL FIBRILLATION Status: Chronic Pr iority: Medium Current Visit: No Annotation/Comment:: Cont. warfarin (3) Bacteria in urine SNOMED Code(s): 39802870 Code(s): R82.71 - BACTERIURIA Status: Acute Current Visit: No (4) HTN (hypertension) SNOMED Code(s): 32749095 Code(s): I10 - ESSENTIAL (PRIMARY) HYPERTENSION Status: Chronic Current Visit: No Qualifiers: Hypertension type: essential hypertension Qualified Code(s): I10 - Essential (primary) hypertension (5) Leukocytosis SNOMED Code(s): 274938812, 870204193 Code(s): D72.829 - ELEVATED WHITE BLOOD CELL COUNT, UNSPECIFIED Status: Acute Current Visit: No Qualifiers: Leukocytosis type: unspecified Qualified Code(s): D72.829 - Elevated white blood cell count, unspecified (6) Cellulitis SNOMED Code(s): 072358725 Code(s): L03.90 - CELLULITIS, UNSPECIFIED Status: Acute Current Visit: Yes Qualifiers: Site of cellulitis of extremity: toe (7) Gout attack SNOMED Code(s): 374201102 Code(s): M10.9 - GOUT, UNSPECIFIED Status: Acute Current Visit: Yes Qualifiers: Gout site: toe (8) Toe infection SNOMED Code(s): 482522475 Code(s): L08.9 - LOCAL INFECTION OF THE SKIN AND SUBCUTANEOUS TISSUE, UNSP Status: Acute Current Visit: Yes (9) CKD (chronic kidney disease) SNOMED Code(s): 462971629 Code(s): N18.9 - CHRONIC KIDNEY DISEASE, UNSPECIFIED Status: Chronic Current Visit: Yes Qualifiers: Chronic kidney disease stage: stage 4 (severe) Qualified Code(s): N18.4 - Chronic kidney disease, stage 4 (severe) (10) WEN (acute kidney injury) SNOMED Code(s): 94810061, 58299618 Code(s): N17.9 - ACUTE KIDNEY FAILURE, UNSPECIFIED Status: Acute Current Visit: Yes (11) Palliative care encounter SNOMED Code(s): 427639405, 470330083 Code(s): Z51.5 - ENCOUNTER FOR PALLIATIVE CARE Status: Acute Current Visit: Yes (12) Hypothyroidism SNOMED Code(s): 67483128 Code(s): E03.9 - HYPOTHYROIDISM, UNSPECIFIED Status: Chronic Priority: Medium Current Visit: No Annotation/Comment:: cont. levothyroxine - Problem List Review Problem List Initiated/Reviewed/Updated: Yes - Plan Plan:: Clindamycin completed and stopped on 12/20/2020. Continue Rocephin. Toe infection with acute on chronic gout is improved today. Patient is able to move her right great toe on her own, sensation and capillary refill intact. Treat acute on chronic gout with prednisone, 20 mg daily for a total of 5 days. Continue febuxostat, home medication. Concern for septic arthritis, continue to monitor joint swelling, redness, pain. Note that blood cultures are negative after 5 days and urine culture negative. Continue home medications including Xarelto, DVT prophylaxis Continue IV ceftriaxone today and monitor for continued improvement. If karen nued improvement switch to oral medications tomorrow. Likely discharge on 12/23/2020
[2020-12-21] MEDS: Rivaroxaban 15 MG Tab PO SCH (17:25)
[2020-12-21] MEDS: cefTRIAXone 1 GM Vial IVPUSH SCH (21:30)
[2020-12-21] MEDS: Sodium Chloride 0.9% 10 ML Syringe FLUSH PRN (21:32)
[2020-12-22] MEDS: Acetaminophen/HYDROcodone 325-5 MG Tab PO PRN ×3 (01:21→21:30)
[2020-12-22] MEDS: Levothyroxine 50 MCG Tab PO SCH (05:34)
[2020-12-22] MEDS: Pantoprazole 40 MG Tab.CR PO SCH (05:34)
[2020-12-22] MEDS: Celecoxib 200 MG Cap PO SCH ×2 (08:37→21:30)
[2020-12-22] MEDS: Isosorbide Mononitrate 30 MG Tab.ER PO SCH (08:37)
[2020-12-22] MEDS: Febuxostat 40 MG Tab PO SCH (08:37)
[2020-12-22] MEDS: Metoprolol Succinate 100 MG Tab.ER PO SCH (08:38)
[2020-12-22] MEDS: predniSONE 20 MG Tab PO SCH ×2 (08:39→18:16)
--- NOTE | 2020-12-22 11:36 | PCM.PN ---
- General Info Date of Service: 12/22/20 Admission Dx/Problem (Free Text): Pain, swelling, erythema of right great toe and foot status post toenail removal Subjective Update: Patient was sitting in a wheelchair next to the window and states that she feels better today and that her toe feels much better Functional Status: Reports: Pain Controlled, Tolerating Diet, Ambulating, Urinating - Review of Systems General: Reports: Fatigue HEENT: Reports: No Symptoms Pulmonary: Reports: No Symptoms Cardiovascular: Reports: No Symptoms Gastrointestinal: Reports: No Symptoms Genitourinary: Reports: No Symptoms Musculoskeletal: Reports: Foot Pain, Joint Swelling Skin: Reports: Other (Cellulitis left great toe) Neurological: Reports: No Symptoms Psychiatric: Reports: No Symptoms - Patient Data Vitals - Most Recent: Last Vital Signs Temp 36.7 C 12/22/20 08:35 Pulse 67 12/22/20 08:38 Resp 16 12/22/20 08:35 BP 143/73 H 12/22/20 08:38 Pulse Ox 97 12/22/20 08:35 Weight - Most Recent: 66.088 kg I&O - Last 24 Hours: Intake & Output 12/21/20 12/22/20 12/22/20 22:59 06:59 14:59 Intake Total 60 Output Total 400 200 Balance -400 -140 Med Orders - Current: Current Medications Acetaminophen (Acetaminophen 500 Mg Tab) 500 mg PO Q4H PRN PRN Reason: Fever Hydrocodone Bitart/Acetaminophen (Acetaminophen/Hydrocodone 325-5 Mg Tab) 1 tab PO Q4H PRN PRN Reason: Pain (moderate 4-6) Last Admin: 12/22/20 01:21 Dose: 1 tab Documented by: Cefdinir (Cefdinir 300 Mg Cap) 300 mg PO BID [facility] Stop: 12/31/20 23:55 Celecoxib (Celecoxib 200 Mg Cap) 200 mg PO BID [facility] Last Admin: 12/22/20 08:37 Dose: 200 mg Documented by: Febuxostat (Febuxostat 40 Mg Tab) 40 mg PO DAILY [facility] Last Admin: 12/22/20 08:37 Dose: 40 mg Documented by: Isosorbide Mononitrate (Isosorbide Mononitrate 30 Mg Tab.Er) 30 mg PO DAILY [facility] Last Admin: 12/22/20 08:37 Dose: 30 mg Documented by: Levothyroxine Sodium (Levothyroxine 50 Mcg Tab) 50 mcg PO DAILY@0600 [facility] Last Admin: 12/22/20 05:34 Dose: 50 mcg Documented by: Metoprolol Succinate (Metoprolol Succinate 100 Mg Tab.Er) 100 mg PO DAILY [facility] Last Admin: 12/22/20 08:38 Dose: 100 mg Documented by: Morphine Sulfate (Morphine 2 Mg/Ml Syringe) 2 mg IVPUSH Q2H PRN PRN Reason: Pain Ondansetron HCl (Ondansetron 4 Mg/2 Ml Sdv) 4 mg IV Q4H PRN PRN Reason: Nausea/Vomiting Last Admin: 12/17/20 11:45 Dose: 4 mg Documented by: Pantoprazole Sodium (Pantoprazole 40 Mg Tab.Cr) 40 mg PO DAILY@0600 [facility] Last Admin: 12/22/20 05:34 Dose: 40 mg Documented by: Prednisone (Prednisone 20 Mg Tab) 20 mg PO BID@0800,1800 [facility] Last Admin: 12/22/20 08:39 Dose: 20 mg Documented by: Rivaroxaban (Rivaroxaban 15 Mg Tab) 15 mg PO WITHDINNER [facility] Last Admin: 12/21/20 17:25 Dose: 15 mg Documented by: Senna/Docusate Sodium (Docusate Sodium/Sennosides 50-8.6 Mg Tab) 1 tab PO BID PRN PRN Reason: Constipation Senna/Docusate Sodium (Docusate Sodium/Sennosides 50-8.6 Mg Tab) 2 tab PO BID [facility] Last Admin: 12/22/20 08:37 Dose: Not Given Documented by: Sodium Chloride (Sodium Chloride 0.9% 10 Ml Syringe) 10 ml FLUSH ASDIRECTED PRN PRN Reason: Keep Vein Open Last Admin: 12/21/20 21:32 Dose: 10 ml Documented by: Discontinued Medications Bisacodyl (Bisacodyl 10 Mg Supp) 10 mg RECTAL ONETIME ONE Stop: 12/17/20 12:31 Last Admin: 12/17/20 13:32 Dose: Not Given Documented by: Ceftriaxone Sodium (Ceftriaxone 1 Gm Vial) 1 gm IVPUSH Q24H [facility] Last Admin: 12/21/20 21:30 Dose: 1 gm Documented by: Docusate Sodium (Docusate Sodium 100 Mg Cap) 200 mg PO BID [facility] Last Admin: 12/16/20 09:10 Dose: 200 mg Documented by: Sodium Chloride (Normal Saline) 1,000 mls @ 125 mls/hr IV ASDIRECTED [facility] Last Admin: 12/16/20 07:47 Dose: 125 mls/hr Documented by: Ceftriaxone Sodium 1 gm/ (Sodium Chloride) 50 mls @ 200 mls/hr IV NOW STA Stop: 12/15/20 23:08 Last Admin: 12/15/20 23:35 Dose: 200 mls/hr Documented by: Ceftriaxone Sodium 1 gm/ (Sodium Chloride) 50 mls @ 200 mls/hr IV Q24H [facility] Clindamycin/Sodium Chloride (600 mg/ Premix) 50 mls @ 150 mls/hr IV Q8H [facility] Stop: 12/20/20 23:59 Last Admin: 12/20/20 17:24 Dose: 100 mls/hr Documented by: Ketorolac Tromethamine (Ketorolac 30 Mg/Ml Sdv) 15 mg IVPUSH ONETIME ONE Stop: 12/15/20 22:47 Last Admin: 12/15/20 23:30 Dose: 15 mg Documented by: Levothyroxine Sodium (Levothyroxine 50 Mcg Tab) 50 mcg PO ACBREAKFAST [facility] Morphine Sulfate (Morphine 2 Mg/Ml Syringe) 2 mg IVPUSH ONETIME ONE Stop: 12/15/20 22:47 Last Admin: 12/15/20 23:32 Dose: 2 mg Documented by: Pantoprazole Sodium (Pantoprazole 40 Mg Tab.Cr) 40 mg PO ACBREAKFAST [facility] Last Admin: 12/16/20 06:43 Dose: Not Given Documented by: Pantoprazole Sodium (Pantoprazole 40 Mg Tab.Cr) Confirm Administered Dose 40 mg .ROUTE .STK-MED ONE Stop: 12/16/20 05:28 Last Admin: 12/16/20 05:34 Dose: Not Given Documented by: Prednisone (Prednisone 20 Mg Tab) 20 mg PO BID [facility] Last Admin: 12/20/20 21:52 Dose: 20 mg Documented by: Comments:: Patient was sitting in the wheelchair next to the window, alert, interactive, pleasant - Exam Quality Assessment: Supplemental Oxygen, DVT Prophylaxis, Skin Breakdown General: Alert, Oriented, Cooperative, No Acute Distress HEENT: EOMI, Other (Note chronic blindness left eye) Lungs: Clear to Auscultation Cardiovascular: Regular Rate, Regular Rhythm, Murmurs Extremities: No Pedal Edema Peripheral Pulses: 2+: Radial (L), Radial (R) Skin: Other (Erythema, edema, mild discharge left great toe) Wound/Incisions: Drainage, Erythema Neurological: No New Focal Deficit Psy/Mental Status: Alert, Normal Affect, Normal Mood - Patient Data Result Diagrams: 12/20/20 06:15 12/16/20 06:03 Sepsis Event Note - Evaluation Sepsis Screening Result: No Definite Risk - Focused Exam Vital Signs: Vital Signs Temp Pulse Pulse Resp BP BP Pulse Ox 12/22/20 08:38 67 143/73 H 12/22/20 08:37 143/73 H 12/22/20 08:35 36.7 C 67 16 143/73 H 97 - Problem List & Annotations (1) Gout SNOMED Code(s): 04329602 Code(s): M10.9 - GOUT, UNSPECIFIED Status: Chronic Priority: Medium Current Visit: No Annotation/Comment:: cont. Uloric (2) Afib, Atrial fibrillation SNOMED Code(s): 24935598 Code(s): I48.91 - UNSPECIFIED ATRIAL FIBRILLATION Status: Chronic Priority: Medium Current Visit: No Annotation/Comment:: Cont. warfarin (3) Bacteria in urine SNOMED Code(s): 04213752 Code(s): R82.71 - BACTERIURIA Status: Acute Current Visit: No (4) HTN (hypertension) SNOMED Code(s): 78764873 Code(s): I10 - ESSENTIAL (PRIMARY) HYPERTENSION Status: Chronic Current Visit: No Qualifiers: Hypertension type: essential hypertension Qualified Code(s): I10 - Essen tial (primary) hypertension (5) Leukocytosis SNOMED Code(s): 227410779, 974501758 Code(s): D72.829 - ELEVATED WHITE BLOOD CELL COUNT, UNSPECIFIED Status: Acute Current Visit: No Qualifiers: Leukocytosis type: unspecified Qualified Code(s): D72.829 - Elevated white blood cell count, unspecified (6) Cellulitis SNOMED Code(s): 039706471 Code(s): L03.90 - CELLULITIS, UNSPECIFIED Status: Acute Current Visit: Yes Qualifiers: Site of cellulitis of extremity: toe (7) Gout attack SNOMED Code(s): 719944908 Code(s): M10.9 - GOUT, UNSPECIFIED Status: Acute Current Visit: Yes Qualifiers: Gout site: toe (8) Toe infection SNOMED Code(s): 129979722 Code(s): L08.9 - LOCAL INFECTION OF THE SKIN AND SUBCUTANEOUS TISSUE, UNSP Status: Acute Current Visit: Yes (9) CKD (chronic kidney disease) SNOMED Code(s): 524343916 Code(s): N18.9 - CHRONIC KIDNEY DISEASE, UNSPECIFIED Status: Chronic Current Visit: Yes Qualifiers: Chronic kidney disease stage: stage 4 (severe) Qualified Code(s): N18.4 - Chronic kidney disease, stage 4 (severe) (10) WEN (acute kidney injury) SNOMED Code(s): 72626757, 17743634 Code(s): N17.9 - ACUTE KIDNEY FAILURE, UNSPECIFIED Status: Acute Current Visit: Yes (11) Palliative care encounter SNOMED Code(s): 519889952, 514954350 Code(s): Z51.5 - ENCOUNTER FOR PALLIATIVE CARE Status: Acute Current Visit: Yes (12) Hypothyroidism SNOMED Code(s): 18858062 Code(s): E03.9 - HYPOTHYROIDISM, UNSPECIFIED Status: Chronic Priority: Medium Current Visit: No Annotation/Comment:: cont. levothyroxine - Problem List Review Problem List Initiated/Reviewed/Updated: Yes - My Orders Last 24 Hours: My Active Orders 12/22/20 11:30 Cefdinir [Omnicef] 300 mg PO BID 12/23/20 BASIC METABOLIC PANEL,BMP [CHEM] Routine CBC WITH AUTO DIFF [HEME] Routine - Plan Plan:: Clindamycin completed and stopped on 12/20/2020. IV ceftriaxone was stopped after today's dose. The patient will be started this evening on cefdinir, oral, 300 mg daily secondary to renal function. If the patient is doing well tomorrow after evaluation of her toe and labs she will likely be discharged to assisted living Treat acute on chronic gout with prednisone, 20 mg daily for a total of 5 days starting on 12/21/2020, noted patient stated this morning that her toe already feels better. Continue febuxostat, home medication. Concern for septic arthritis, continue to monitor joint swelling, redness, pain. Note that blood cultures are negative after 5 days and urine culture negative. Continue home medications including Xarelto, DVT prophylaxis Likely discharge on 12/23/2020
[2020-12-22] MEDS ORDERED: Cefdinir 300 MG Cap PO SCH (18:00)
[2020-12-22] MEDS: Rivaroxaban 15 MG Tab PO SCH (18:17)
[2020-12-22] MEDS: Sodium Chloride 0.9% 10 ML Syringe FLUSH PRN (21:32)
[2020-12-23] MEDS: Levothyroxine 50 MCG Tab PO SCH (05:18)
[2020-12-23] MEDS: Pantoprazole 40 MG Tab.CR PO SCH (05:19)
--- NOTE | 2020-12-23 07:22 | PCM.PN ---
- General Info Date of Service: 12/23/20 Admission Dx/Problem (Free Text): Pain, swelling, erythema of right great toe and foot status post toenail removal Subjective Update: Patient states that she feels better today and she thinks that her toe feels better. She still has pain when she tries to stand and walk but she can stand and walk. She also thinks that her toe looks better today Functional Status: Reports: Pain Controlled, Tolerating Diet, Ambulating, Urina ting - Review of Systems General: Reports: Weakness HEENT: Reports: No Symptoms Pulmonary: Reports: No Symptoms Cardiovascular: Reports: No Symptoms Gastrointestinal: Reports: No Symptoms Genitourinary: Reports: No Symptoms Musculoskeletal: Reports: Foot Pain Skin: Reports: Other (Left great toe lesion) Neurological: Reports: No Symptoms Psychiatric: Reports: No Symptoms - Patient Data Vitals - Most Recent: Last Vital Signs Temp 36.6 C 12/22/20 16:00 Pulse 80 12/22/20 16:00 Resp 16 12/22/20 16:00 BP 158/85 H 12/22/20 16:00 Pulse Ox 98 12/22/20 16:00 Weight - Most Recent: 66.088 kg I&O - Last 24 Hours: Intake & Output 12/22/20 12/23/20 12/23/20 22:59 06:59 14:59 Intake Total 400 250 Output Total 200 400 Balance 200 -150 Lab Results Last 24 Hours: Laboratory Results - last 24 hr 12/23/20 12/23/20 Range/Units 06:25 06:25 WBC 12.8 H (3.0-10.3) x10-3/uL RBC 3.21 L (3.60-5.20) x10(6)uL Hgb 9.8 L (11.4-15.5) g/dL Hct 30.2 L (34.2-48.2) % MCV 94.0 (76.7-100.5) fL MCH 30.7 (23.9-33.9) pg MCHC 32.6 (31.9-34.8) g/dL RDW 14.1 (12.3-16.5) % Plt Count 234 (151-488) x10(3)uL MPV 9.8 (7.1-12.4) fL Add Manual Diff Yes Sodium 140 (135-145) mmol/L Potassium 5.3 D (3.5-5.3) mmol/L Chloride 104 (100-110) mmol/L Carbon Dioxide 25 (21-32) mmol/L BUN 31 H (7-18) mg/dL Creatinine 1.7 H (0.55-1.02) mg/dL Est Cr Clr Drug Dosing 18.56 mL/min Estimated GFR (MDRD) 28 L (>60) BUN/Creatinine Ratio 18.2 (9-20) Glucose 112 (80-116) mg/dL Calcium 8.7 (8.6-10.2) mg/dL Med Orders - Current: Current Medications Acetaminophen (Acetaminophen 500 Mg Tab) 500 mg PO Q4H PRN PRN Reason: Fever Hydrocodone Bitart/Acetaminophen (Acetaminophen/Hydrocodone 325-5 Mg Tab) 1 tab PO Q4H PRN PRN Reason: Pain (moderate 4-6) Last Admin: 12/22/20 21:30 Dose: 1 tab Documented by: Cefdinir (Cefdinir 300 Mg Cap) 300 mg PO DAILY@1800 [facility] Stop: 12/31/20 23:59 Last Admin: 12/22/20 18:16 Dose: 300 mg Documented by: Celecoxib (Celecoxib 200 Mg Cap) 200 mg PO BID [facility] Last Admin: 12/22/20 21:30 Dose: 200 mg Documented by: Clindamycin HCl (Clindamycin Hcl 150 Mg Cap) 600 mg PO Q12H [facility] Febuxostat (Febuxostat 40 Mg Tab) 40 mg PO DAILY [facility] Last Admin: 12/22/20 08:37 Dose: 40 mg Documented by: Isosorbide Mononitrate (Isosorbide Mononitrate 30 Mg Tab.Er) 30 mg PO DAILY [facility] Last Admin: 12/22/20 08:37 Dose: 30 mg Documented by: Levothyroxine Sodium (Levothyroxine 50 Mcg Tab) 50 mcg PO DAILY@0600 [facility] Last Admin: 12/23/20 05:18 Dose: 50 mcg Documented by: Metoprolol Succinate (Metoprolol Succinate 100 Mg Tab.Er) 100 mg PO DAILY [facility] Last Admin: 12/22/20 08:38 Dose: 100 mg Documented by: Morphine Sulfate (Morphine 2 Mg/Ml Syringe) 2 mg IVPUSH Q2H PRN PRN Reason: Pain Ondansetron HCl (Ondansetron 4 Mg/2 Ml Sdv) 4 mg IV Q4H PRN PRN Reason: Nausea/Vomiting Last Admin: 12/17/20 11:45 Dose: 4 mg Documented by: Pantoprazole Sodium (Pantoprazole 40 Mg Tab.Cr) 40 mg PO DAILY@0600 [facility] Last Admin: 12/23/20 05:19 Dose: 40 mg Documented by: Prednisone (Prednisone 20 Mg Tab) 20 mg PO BID@0800,1800 [facility] Last Admin: 12/22/20 18:16 Dose: 20 mg Documented by: Rivaroxaban (Rivaroxaban 15 Mg Tab) 15 mg PO WITHDINNER [facility] Last Admin: 12/22/20 18:17 Dose: 15 mg Documented by: Saccharomyces Boulardii (Saccharomyces Boulardii (Probiotic) 250 Mg Cap) 250 mg PO BID [facility] Senna/Docusate Sodium (Docusate Sodium/Sennosides 50-8.6 Mg Tab) 1 tab PO BID PRN PRN Reason: Constipation Senna/Docusate Sodium (Docusate Sodium/Sennosides 50-8.6 Mg Tab) 2 tab PO BID [facility] Last Admin: 12/22/20 21:25 Dose: Not Given Documented by: Sodium Chloride (Sodium Chloride 0.9% 10 Ml Syringe) 10 ml FLUSH ASDIRECTED PRN PRN Reason: Keep Vein Open Last Admin: 12/22/20 21:32 Dose: 10 ml Documented by: Discontinued Medications Bisacodyl (Bisacodyl 10 Mg Supp) 10 mg RECTAL ONETIME ONE Stop: 12/17/20 12:31 Last Admin: 12/17/20 13:32 Dose: Not Given Documented by: Ceftriaxone Sodium (Ceftriaxone 1 Gm Vial) 1 gm IVPUSH Q24H [facility] Last Admin: 12/21/20 21:30 Dose: 1 gm Documented by: Docusate Sodium (Docusate Sodium 100 Mg Cap) 200 mg PO BID [facility] Last Admin: 12/16/20 09:10 Dose: 200 mg Documented by: Sodium Chloride (Normal Saline) 1,000 mls @ 125 mls/hr IV ASDIRECTED [facility] Last Admin: 12/16/20 07:47 Dose: 125 mls/hr Documented by: Ceftriaxone Sodium 1 gm/ (Sodium Chloride) 50 mls @ 200 mls/hr IV NOW STA Stop: 12/15/20 23:08 Last Admin: 12/15/20 23:35 Dose: 200 mls/hr Documented by: Ceftriaxone Sodium 1 gm/ (Sodium Chloride) 50 mls @ 200 mls/hr IV Q24H [facility] Clindamycin/Sodium Chloride (600 mg/ Premix) 50 mls @ 150 mls/hr IV Q8H [facility] Stop: 12/20/20 23:59 Last Admin: 12/20/20 17:24 Dose: 100 mls/hr Documented by: Ketorolac Tromethamine (Ketorolac 30 Mg/Ml Sdv) 15 mg IVPUSH ONETIME ONE Stop: 12/15/20 22:47 Last Admin: 12/15/20 23:30 Dose: 15 mg Documented by: Levothyroxine Sodium (Levothyroxine 50 Mcg Tab) 50 mcg PO ACBREAKFAST [facility] Morphine Sulfate (Morphine 2 Mg/Ml Syringe) 2 mg IVPUSH ONETIME ONE Stop: 12/15/20 22:47 Last Admin: 12/15/20 23:32 Dose: 2 mg Documented by: Pantoprazole Sodium (Pantoprazole 40 Mg Tab.Cr) 40 mg PO ACBREAKFAST [facility] Last Admin: 12/16/20 06:43 Dose: Not Given Documented by: Pantoprazole Sodium (Pantoprazole 40 Mg Tab.Cr) Confirm Administered Dose 40 mg .ROUTE .STK-MED ONE Stop: 12/16/20 05:28 Last Admin: 12/16/20 05:34 Dose: Not Given Documented by: Prednisone (Prednisone 20 Mg Tab) 20 mg PO BID [facility] Last Admin: 12/20/20 21:52 Dose: 20 mg Documented by: Comments:: The patient was lying in bed this morning but is awake, alert, interactive, pleasant - Exam Quality Assessment: Supplemental Oxygen, DVT Prophylaxis, Skin Breakdown General: Alert, Oriented, Cooperative, No Acute Distress HEENT: Other (Chronic blindness left eye) Lungs: Clear to Auscultation Cardiovascular: Regular Rate, Regular Rhythm GI/Abdominal Exam: Normal Bowel Sounds, Non-Tender Extremities: Pedal Edema Peripheral Pulses: 2+: Radial (L), Radial (R) Skin: Other (Lesion left great toe) Wound/Incisions: Other (Erythema, calor, swelling/edema of the left great toe improved from yesterday, no obvious drainage today) Neurological: No New Focal Deficit Psy/Mental Status: Alert, Normal Affect, Normal Mood - Patient Data Lab Results Last 24 hrs: Laboratory Results - last 24 hr 12/23/20 12/23/20 Range/Units 06:25 06:25 WBC 12.8 H (3.0-10.3) x10-3/uL RBC 3.21 L (3.60-5.20) x10(6)uL Hgb 9.8 L (11.4-15.5) g/dL Hct 30.2 L (34.2-48.2) % MCV 94.0 (76.7-100.5) fL MCH 30.7 (23.9-33.9) pg MCHC 32.6 (31.9-34.8) g/dL RDW 14.1 (12.3-16.5) % Plt Count 234 (151-488) x10(3)uL MPV 9.8 (7.1-12.4) fL Add Manual Diff Yes Sodium 140 (135-145) mmol/L Potassium 5.3 D (3.5-5.3) mmol/L Chloride 104 (100-110) mmol/L Carbon Dioxide 25 (21-32) mmol/L BUN 31 H (7-18) mg/dL Creatinine 1.7 H (0.55-1.02) mg/dL Est Cr Clr Drug Dosing 18.56 mL/min Estimated GFR (MDRD) 28 L (>60) BUN/Creatinine Ratio 18.2 (9-20) Glucose 112 (80-116) mg/dL Calcium 8.7 (8.6-10.2) mg/dL Result Diagrams: 12/23/20 06:25 12/23/20 06:25 Sepsis Event Note - Evaluation Sepsis Screening Result: No Definite Risk - Problem List & Annotations (1) Gout SNOMED Code(s): 14568178 Code(s): M10.9 - GOUT, UNSPECIFIED Status: Chronic Priority: Medium Current Visit: No Annotation/Comment:: cont. Uloric (2) Afib, Atrial fibrillation SNOMED Code(s): 49696167 Code(s): I48.91 - UNSPECIFIED ATRIAL FIBRILLATION Status: Chronic Priority: Medium Current Visit: No Annotation/Comment:: Cont. warfarin (3) Bacteria in urine SNOMED Code(s): 57809162 Code(s): R82.71 - BACTERIURIA Status: Acute Current Visit: No (4) HTN (hypertension) SNOMED Code(s): 18150839 Code(s): I10 - ESSENTIAL (PRIMARY) HYPERTENSION Status: Chronic Current Visit: No Qualifiers: Hypertension type: essential hypertension Qualified Code(s): I10 - Essential (primary) hypertension (5) Leukocytosis SNOMED Code(s): 186736136, 402496919 Code(s): D72.829 - ELEVATED WHITE BLOOD CELL COUNT, UNSPECIFIED Status: Acute Current Visit: No Qualifiers: Leukocytosis type: unspecified Qualified Code(s): D72.829 - Elevated white blood cell count, unspecified (6) Cellulitis SNOMED Code(s): 875164124 Code(s): L03.90 - CELLULITIS, UNSPECIFIED Status: Acute Current Visit: Yes Qualifiers: Site of cellulitis of extremity: toe (7) Gout attack SNOMED Code(s): 356079679 Code(s): M10.9 - GOUT, UNSPECIFIED Status: Acute Current Visit: Yes Qualifiers: Gout site: toe (8) Toe infection SNOMED Code(s): 491339468 Code(s): L08.9 - LOCAL INFECTION OF THE SKIN AND SUBCUTANEOUS TISSUE, UNSP Status: Acute Current Visit: Yes (9) CKD (chronic kidney disease) SNOMED Code(s): 713921645 Code(s): N18.9 - CHRONIC KIDNEY DISEASE, UNSPECIFIED Status: Chronic Current Visit: Yes Qualifiers: Chronic kidney disease stage: stage 4 (severe) Qualified Code(s): N18.4 - Chronic kidney disease, stage 4 (severe) (10) WEN (acute kidney injury) SNOMED Code(s): 46935234, 32562336 Code(s): N17.9 - ACUTE KIDNEY FAILURE, UNSPECIFIED Status: Acute Current Visit: Yes (11) Palliative care encounter SNOMED Code(s): 192412916, 931854529 Code(s): Z51.5 - ENCOUNTER FOR PALLIATIVE CARE Status: Acute Current Vis it: Yes (12) Hypothyroidism SNOMED Code(s): 52457473 Code(s): E03.9 - HYPOTHYROIDISM, UNSPECIFIED Status: Chronic Priority: Medium Current Visit: No Annotation/Comment:: cont. levothyroxine - Problem List Review Problem List Initiated/Reviewed/Updated: Yes - My Orders Last 24 Hours: My Active Orders 12/22/20 18:00 Cefdinir [Omnicef] 300 mg PO DAILY@1800 12/23/20 06:25 CBC WITH AUTO DIFF [HEME] Routine 12/23/20 07:15 clindamycin HCL [Cleocin] 600 mg PO Q12H 12/23/20 09:00 Saccharomyces Boulardii [Florastor] 250 mg PO BID - Plan Plan:: Clindamycin was stopped on 12/20/2020 and the patient's white blood cell count increased significantly as measured this morning. Continue cefdinir and start clindamycin. Recheck CBC tomorrow. Treat acute on chronic gout with prednisone, 20 mg daily for a total of 5 days starting on 12/21/2020, patient stated this morning that her toe feels and looks better. Continue febuxostat, home medication. Concern for septic arthritis, co ntinue to monitor joint swelling, redness, pain. Note that blood cultures are negative after 5 days and urine culture negative. Continue home medications including Xarelto, DVT prophylaxis Likely discharge tomorrow
[2020-12-23] MEDS: Celecoxib 200 MG Cap PO SCH ×2 (08:30→20:58)
[2020-12-23] MEDS: predniSONE 20 MG Tab PO SCH ×2 (08:30→17:15)
[2020-12-23] MEDS: Saccharomyces Boulardii (Probiotic) 250 MG Cap PO SCH ×2 (08:30→20:58)
[2020-12-23] MEDS: Clindamycin HCl 150 MG Cap PO SCH ×2 (08:30→20:40)
[2020-12-23] MEDS: Isosorbide Mononitrate 30 MG Tab.ER PO SCH (08:31)
[2020-12-23] MEDS: Metoprolol Succinate 100 MG Tab.ER PO SCH (08:31)
[2020-12-23] MEDS: Febuxostat 40 MG Tab PO SCH (08:32)
[2020-12-23] MEDS: Cefdinir 300 MG Cap PO SCH (17:15)
[2020-12-23] MEDS: Rivaroxaban 15 MG Tab PO SCH (17:15)
[2020-12-24] MEDS: Acetaminophen/HYDROcodone 325-5 MG Tab PO PRN ×2 (00:39→20:01)
[2020-12-24] MEDS: Pantoprazole 40 MG Tab.CR PO SCH (06:17)
[2020-12-24] MEDS: Levothyroxine 50 MCG Tab PO SCH (06:17)
--- NOTE | 2020-12-24 08:50 | PCM.PN ---
- General Info Date of Service: 12/24/20 Admission Dx/Problem (Free Text): Pain, swelling, erythema of right great toe and foot status post toenail removal Subjective Update: Patient states that she is feeling well today and is having less pain overall but she has increased pain in the distal portion of her left great toe. This is giving her difficulty with ambulation Functional Status: Reports: Pain Controlled, Tolerating Diet, Ambulating, Urinating - Review of Systems General: Reports: Weakness, Fatigue HEENT: Reports: No Symptoms Pulmonary: Reports: No Symptoms Cardiovascular: Reports: No Symptoms Gastrointestinal: Reports: No Symptoms Genitourinary: Reports: No Symptoms Musculoskeletal: Reports: No Symptoms Skin: Reports: Other (Lesion left great toe) Neurological: Reports: No Symptoms Psychiatric: Reports: No Symptoms - Patient Data Vitals - Most Recent: Last Vital Signs Temp 36.6 C 12/24/20 00:00 Pulse 60 12/24/20 00:00 Resp 17 12/24/20 00:00 BP 162/88 H 12/24/20 00:00 Pulse Ox 98 12/24/20 00:00 Weight - Most Recent: 66.088 kg I&O - Last 24 Hours: Intake & Output 12/23/20 12/24/20 12/24/20 22:59 06:59 14:59 Intake Total 200 Output Total 150 400 Balance 50 -400 Lab Results Last 24 Hours: Laboratory Results - last 24 hr 12/24/20 Range/Units 07:07 WBC 14.6 H (3.0-10.3) x10-3/uL RBC 3.43 L (3.60-5.20) x10(6)uL Hgb 10.4 L (11.4-15.5) g/dL Hct 31.9 L (34.2-48.2) % MCV 92.8 (76.7-100.5) fL MCH 30.2 (23.9-33.9) pg MCHC 32.5 (31.9-34.8) g/dL RDW 14.2 (12.3-16.5) % Plt Count 250 (151-488) x10(3)uL MPV 9.5 (7.1-12.4) fL Add Manual Diff Yes Neutrophils % (Manual) 79 (46-82) % Band Neutrophils % 1 (0-6) % Lymphocytes % (Manual) 16 (13-37) % Monocytes % (Manual) 4 (4-12) % Med Orders - Current: Current Medications Acetaminophen (Acetaminophen 500 Mg Tab) 500 mg PO Q4H PRN PRN Reason: Fever Hydrocodone Bitart/Acetaminophen (Acetaminophen/Hydrocodone 325-5 Mg Tab) 1 tab PO Q4H PRN PRN Reason: Pain (moderate 4-6) Last Admin: 12/24/20 00:39 Dose: 1 tab Documented by: Cefdinir (Cefdinir 300 Mg Cap) 300 mg PO DAILY@1800 [facility] Last Admin: 12/23/20 17:15 Dose: 300 mg Documented by: Celecoxib (Celecoxib 200 Mg Cap) 200 mg PO BID [facility] Last Admin: 12/23/20 20:58 Dose: 200 mg Documented by: Clindamycin HCl (Clindamycin Hcl 150 Mg Cap) 600 mg PO Q12H [facility] Last Admin: 12/23/20 20:40 Dose: 600 mg Documented by: Febuxostat (Febuxostat 40 Mg Tab) 40 mg PO DAILY [facility] Last Admin: 12/23/20 08:32 Dose: 40 mg Documented by: Isosorbide Mononitrate (Isosorbide Mononitrate 30 Mg Tab.Er) 30 mg PO DAILY [facility] Last Admin: 12/23/20 08:31 Dose: 30 mg Documented by: Levothyroxine Sodium (Levothyroxine 50 Mcg Tab) 50 mcg PO DAILY@0600 [facility] Last Admin: 12/24/20 06:17 Dose: 50 mcg Documented by: Metoprolol Succinate (Metoprolol Succinate 100 Mg Tab.Er) 100 mg PO DAILY [facility] Last Admin: 12/23/20 08:31 Dose: 100 mg Documented by: Morphine Sulfate (Morphine 2 Mg/Ml Syringe) 2 mg IVPUSH Q2H PRN PRN Reason: Pain Ondansetron HCl (Ondansetron 4 Mg/2 Ml Sdv) 4 mg IV Q4H PRN PRN Reason: Nausea/Vomiting Last Admin: 12/17/20 11:45 Dose: 4 mg Documented by: Pantoprazole Sodium (Pantoprazole 40 Mg Tab.Cr) 40 mg PO DAILY@0600 [facility] Last Admin: 12/24/20 06:17 Dose: 40 mg Documented by: Prednisone (Prednisone 20 Mg Tab) 20 mg PO BID@0800,1800 [facility] Last Admin: 12/23/20 17:15 Dose: 20 mg Documented by: Rivaroxaban (Rivaroxaban 15 Mg Tab) 15 mg PO WITHDINNER [facility] Last Admin: 12/23/20 17:15 Dose: 15 mg Documented by: Saccharomyces Boulardii (Saccharomyces Boulardii (Probiotic) 250 Mg Cap) 250 mg PO BID [facility] Last Admin: 12/23/20 20:58 Dose: 250 mg Documented by: Senna/Docusate Sodium (Docusate Sodium/Sennosides 50-8.6 Mg Tab) 1 tab PO BID PRN PRN Reason: Constipation Senna/Docusate Sodium (Docusate Sodium/Sennosides 50-8.6 Mg Tab) 2 tab PO BID [facility] Last Admin: 12/23/20 20:58 Dose: Not Given Documented by: Sodium Chloride (Sodium Chloride 0.9% 10 Ml Syringe) 10 ml FLUSH ASDIRECTED PRN PRN Reason: Keep Vein Open Last Admin: 12/22/20 21:32 Dose: 10 ml Documented by: Discontinued Medications Bisacodyl (Bisacodyl 10 Mg Supp) 10 mg RECTAL ONETIME ONE Stop: 12/17/20 12:31 Last Admin: 12/17/20 13:32 Dose: Not Given Documented by: Cefdinir (Cefdinir 300 Mg Cap) 300 mg PO DAILY@1800 [facility] Stop: 12/31/20 23:59 Last Admin: 12/22/20 18:16 Dose: 300 mg Documented by: Ceftriaxone Sodium (Ceftriaxone 1 Gm Vial) 1 gm IVPUSH Q24H [facility] Last Admin: 12/21/20 21:30 Dose: 1 gm Documented by: Docusate Sodium (Docusate Sodium 100 Mg Cap) 200 mg PO BID [facility] Last Admin: 12/16/20 09:10 Dose: 200 mg Documented by: Sodium Chloride (Normal Saline) 1,000 mls @ 125 mls/hr IV ASDIRECTED [facility] Last Admin: 12/16/20 07:47 Dose: 125 mls/hr Documented by: Ceftriaxone Sodium 1 gm/ (Sodium Chloride) 50 mls @ 200 mls/hr IV NOW STA Stop: 12/15/20 23:08 Last Admin: 12/15/20 23:35 Dose: 200 mls/hr Documented by: Ceftriaxone Sodium 1 gm/ (Sodium Chloride) 50 mls @ 200 mls/hr IV Q24H [facility] Clindamycin/Sodium Chloride (600 mg/ Premix) 50 mls @ 150 mls/hr IV Q8H [facility] Stop: 12/20/20 23:59 Last Admin: 12/20/20 17:24 Dose: 100 mls/hr Documented by: Ketorolac Tromethamine (Ketorolac 30 Mg/Ml Sdv) 15 mg IVPUSH ONETIME ONE Stop: 12/15/20 22:47 Last Admin: 12/15/20 23:30 Dose: 15 mg Documented by: Levothyroxine Sodium (Levothyroxine 50 Mcg Tab) 50 mcg PO ACBREAKFAST [facility] Morphine Sulfate (Morphine 2 Mg/Ml Syringe) 2 mg IVPUSH ONETIME ONE Stop: 12/15/20 22:47 Last Admin: 12/15/20 23:32 Dose: 2 mg Documented by: Pantoprazole Sodium (Pantoprazole 40 Mg Tab.Cr) 40 mg PO ACBREAKFAST [facility] Last Admin: 12/16/20 06:43 Dose: Not Given Documented by: Pantoprazole Sodium (Pantoprazole 40 Mg Tab.Cr) Confirm Administered Dose 40 mg .ROUTE .STK-MED ONE Stop: 12/16/20 05:28 Last Admin: 12/16/20 05:34 Dose: Not Given Documented by: Prednisone (Prednisone 20 Mg Tab) 20 mg PO BID [facility] Last Admin: 12/20/20 21:52 Dose: 20 mg Documented by: Comments:: Patient is sitting in the chair next to the window eating breakfast, alert, interactive, pleasant - Exam Quality Assessment: Supplemental Oxygen, DVT Prophylaxis, Skin Breakdown General: Alert, Oriented, Cooperative, No Acute Distress HEENT: EOMI, Other (Chronic left eye blindness) Lungs: Crackles Cardiovascular: Regular Rate, Regular Rhythm GI/Abdominal Exam: Normal Bowel Sounds, Soft, Non-Tender Extremities: Pedal Edema Peripheral Pulses: 2+: Radial (L), Radial (R) Skin: Warm, Dry Wound/Incisions: No Drainage, Erythema, Other (Significant erythema, calor of the left great toe with improving erythema left foot) Neurological: No New Focal Deficit Psy/Mental Status: Alert, Normal Affect, Normal Mood - Patient Data Lab Results Last 24 hrs: Laboratory Results - last 24 hr 12/24/20 Range/Units 07:07 WBC 14.6 H (3.0-10.3) x10-3/uL RBC 3.43 L (3.60-5.20) x10(6)uL Hgb 10.4 L (11.4-15.5) g/dL Hct 31.9 L (34.2-48.2) % MCV 92.8 (76.7-100.5) fL MCH 30.2 (23.9-33.9) pg MCHC 32.5 (31.9-34.8) g/dL RDW 14.2 (12.3-16.5) % Plt Count 250 (151-488) x10(3)uL MPV 9.5 (7.1-12.4) fL Add Manual Diff Yes Neutrophils % (Manual) 79 (46-82) % Band Neutrophils % 1 (0-6) % Lymphocytes % (Manual) 16 (13-37) % Monocytes % (Manual) 4 (4-12) % Result Diagrams: 12/24/20 07:07 12/23/20 06:25 Sepsis Event Note - Evaluation Sepsis Screening Result: No Definite Risk - Focused Exam Vital Signs: Vital Signs Temp Pulse Resp BP Pulse Ox 12/24/20 00:00 36.6 C 60 17 162/88 H 98 12/23/20 22:25 144/68 H 12/23/20 21:00 36.4 C 79 18 180/100 H 98 - Problem List & Annotations (1) Gout SNOMED Code(s): 93074628 Code(s): M10.9 - GOUT, UNSPECIFIED Status: Chronic Priority: Medium Current Visit: No Annotation/Comment:: cont. Uloric (2) Afib, Atrial fibrillation SNOMED Code(s): 03067408 Code(s): I48.91 - UNSPECIFIED ATRIAL FIBRILLATION Status: Chronic Priority: Medium Current Visit: No Annotation/Comment:: Cont. warfarin (3) Bacteria in urine SNOMED Code(s): 69346609 Code(s): R82.71 - BACTERIURIA Status: Acute Current Visit: No (4) HTN (hypertension) SNOMED Code(s): 71688343 Code(s): I10 - ESSENTIAL (PRIMARY) HYPERTENSION Status: Chronic Current Visit: No Qualifiers: Hypertension type: essential hypertension Qualified Code(s): I10 - Essential (primary) hypertension (5) Leukocytosis SNOMED Code(s): 501368969, 242613545 Code(s): D72.829 - ELEVATED WHITE BLOOD CELL COUNT, UNSPECIFIED Status: Acute Current Visit: No Qualifiers: Leukocytosis type: unspecified Qualified Code(s): D72.829 - Elevated white blood cell count, unspecified (6) Cellulitis SNOMED Code(s): 006974374 Code(s): L03.90 - CELLULITIS, UNSPECIFIED Status: Acute Current Visit: Yes Qualifiers: Site of cellulitis of extremity: toe (7) Gout attack SNOMED Code(s): 086130878 Code(s): M10.9 - GOUT, UNSPECIFIED Status: Acute Current Visit: Yes Qualifiers: Gout site: toe (8) Toe infection SNOMED Code(s): 273759190 Code(s): L08.9 - LOCAL INFECTION OF THE SKIN AND SUBCUTANEOUS TISSUE, UNSP Status: Acute Current Visit: Yes (9) CKD (chronic kidney disease) SNOMED Code(s): 606237380 Code(s): N18.9 - CHRONIC KIDNEY DISEASE, UNSPECIFIED Status: Chronic Current Visit: Yes Qualifiers: Chronic kidney disease stage: stage 4 (severe) Qualified Code(s): N18.4 - Chronic kidney disease, stage 4 (severe) (10) WEN (acute kidney injury) SNOMED Code(s): 39238509, 87308204 Code(s): N17.9 - ACUTE KIDNEY FAILURE, UNSPECIFIED Status: Acute Current Visit: Yes (11) Palliative care encounter SNOMED Code(s): 956865766, 613469820 Code(s): Z51.5 - ENCOUNTER FOR PALLIATIVE CARE Status: Acute Current Visit: Yes (12) Hypothyroidism SNOMED Code(s): 67532345 Code(s): E03.9 - HYPOTHYROIDISM, UNSPECIFIED Status: Chronic Priority: Medium Current Visit: No Annotation/Comment:: cont. levothyroxine - Problem List Review Problem List Initiated/Reviewed/Updated: Yes - My Orders Last 24 Hours: My Active Orders 12/23/20 09:00 Saccharomyces Boulardii [Florastor] 250 mg PO BID 12/23/20 10:33 OT Evaluation and Treatment [CONS] Routine PT Evaluation and Treatment [CONS] Routine 12/23/20 18:00 Cefdinir [Omnicef] 300 mg PO DAILY@1800 12/24/20 08:43 Consult to Physician [CONS] Routine 12/24/20 08:45 Notify Provider Consults [RC] ASDIRECTED - Plan Plan:: White blood cell count increased slightly today but this is day 4 of 5 with prednisone 20 mg daily for gout flare Continue febuxostat, home medication. Concern for septic arthritis, continue to monitor joint swelling, redness, pain. Note that blood cultures are negative after 5 days and urine culture negative. Continue oral clindamycin and cefdinir Consult surgery for wound care and evaluation of the left great toe. Appreciate Dr. Hernandes evaluation sometime later today Continue home medications including Xarelto, DVT prophylaxis Likely discharge tomorrow
[2020-12-24] MEDS: Clindamycin HCl 150 MG Cap PO SCH ×2 (08:52→20:03)
[2020-12-24] MEDS: Isosorbide Mononitrate 30 MG Tab.ER PO SCH (08:53)
[2020-12-24] MEDS: Saccharomyces Boulardii (Probiotic) 250 MG Cap PO SCH ×2 (08:53→20:02)
[2020-12-24] MEDS: Metoprolol Succinate 100 MG Tab.ER PO SCH (08:53)
[2020-12-24] MEDS: Celecoxib 200 MG Cap PO SCH ×2 (08:53→20:02)
[2020-12-24] MEDS: predniSONE 20 MG Tab PO SCH ×2 (08:53→17:06)
[2020-12-24] MEDS: Febuxostat 40 MG Tab PO SCH (08:53)
[2020-12-24] MEDS: Rivaroxaban 15 MG Tab PO SCH (17:05)
[2020-12-24] MEDS: Cefdinir 300 MG Cap PO SCH (17:06)
--- NOTE | 2020-12-24 17:17 | CONS ---
DATE OF CONSULTATION: 12/24/2020 This 89-year-old female is hospitalized with cellulitis of her left foot. This primarily involves the left great toe and there is a history of her having had some drainage from the proximal aspect of this toe. She has been receiving antibiotics and the condition of the toe and the foot is significantly improved. Webb on the foot indicate that previous erythema now has completely cleared, and she although is still having some pain in the toe, is noticing improvement. Consultation is requested to see if there is any indication for surgical management of this toe at this time. Examination of the toe shows that the nail has been removed. There is some crusted old blood present where the nail was, but no erythema in this area. There is some erythema on the top of the toe near the base of the toe, but this is well localized to this area. There is a small eschar suggesting a previous draining sinus, but this is now only 2 to 3 mm in size and no drainage is noted. I do not feel any fluctuance of the toe. There is some generalized edema and mild soreness, but no indication of underlying abscess. No crepitus is noted, and the plantar surface of the toe and foot appear normal. It appears that the cellulitis in this foot and toe is responding to the antibiotics. At this point, I do not see any indication for surgical intervention and would agree with the current plan for simple continued treatment with antibiotics. She is advised that she may soak the toe to help keep it clean, and I will see her back p.r.n. /[id number] SHAYY/SAJAN
[2020-12-25] MEDS: Pantoprazole 40 MG Tab.CR PO SCH (06:27)
[2020-12-25] MEDS: Levothyroxine 50 MCG Tab PO SCH (06:28)
[2020-12-25] MEDS: Clindamycin HCl 150 MG Cap PO SCH (06:29)
[2020-12-25] MEDS: Acetaminophen/HYDROcodone 325-5 MG Tab PO PRN ×2 (08:31)
[2020-12-25] MEDS: predniSONE 20 MG Tab PO SCH (08:31)
[2020-12-25] MEDS: Saccharomyces Boulardii (Probiotic) 250 MG Cap PO SCH (08:32)
[2020-12-25] MEDS: Isosorbide Mononitrate 30 MG Tab.ER PO SCH (08:32)
[2020-12-25] MEDS: Celecoxib 200 MG Cap PO SCH (08:32)
[2020-12-25] MEDS: Metoprolol Succinate 100 MG Tab.ER PO SCH (08:32)
[2020-12-25] MEDS: Febuxostat 40 MG Tab PO SCH (08:33)
[2020-12-25 08:34] VITALS: BP 162/83; PULSE 62
--- NOTE | 2020-12-25 12:20 | PCM.DCSUM1 ---
Discharge Summary - Hospital Course Free Text/Narrative:: Patient was initially treated with IV clindamycin and Rocephin. Patient was transitioned to oral medication and initially clindamycin was stopped. Patient's white blood cell count increased and she had increased in pain and swelling of her left great toe and foot. Patient was found to have an acute gout attack. The joint was assumed to be septic. Rocephin was continued and clindamycin was added back. Patient was transitioned to oral cefdinir and clin damycin. She had a slight increase in white blood cell count but this was thought to be secondary to prednisone which was given for acute gout attack. Patient's pain, swelling, erythema continue to improve and she continued to improve with physical and Occupational Therapy. Patient will be discharged home with with supplemental oxygen and physical and Occupational Therapy to continue her rehabilitation. Patient will continue oral cefdinir and clindamycin. HPI Initial Comments: Patient was seen in the emergency department after undergoing procedure with removal of a complicated left great toe deformity. She was found to have cellulitis and subsequently developed weakness and difficulty with ambulation. She was admitted for IV antibiotic therapy and OT/PT evaluation and treatment. Diagnosis: Stroke: No - Discharge Data Discharge Date: 12/25/20 Discharge Disposition: Home, Home Health Agency 06 Condition: Good - Referral to Home Health Date of Face to Face Encounter: 12/25/20 Reason for Homebound Status: Weakness, painful ambulation Primary Care Physician: Piero Waddell MD Skilled Need: oxygen therapy, PT/OT - Discharge Diagnosis/Problem(s) (1) Gout SNOMED Code(s): 77607352 ICD Code: M10.9 - GOUT, UNSPECIFIED Status: Chronic Priority: Medium Problem Details: cont. Uloric (2) Afib, Atrial fibrillation SNOMED Code(s): 28147764 ICD Code: I48.91 - UNSPECIFIED ATRIAL FIBRILLATION Status: Chronic Priority: Medium Problem Details: Cont. warfarin (3) Bacteria in urine SNOMED Code(s): 45705813 ICD Code: R82.71 - BACTERIURIA Status: Acute (4) HTN (hypertension) SNOMED Code(s): 42418129 ICD Code: I10 - ESSENTIAL (PRIMARY) HYPERTENSION Status: Chronic Qualifiers: Hypertension type: essential hypertension Qualified Code(s): I10 - Essential (primary) hypertension (5) Leukocytosis SNOMED Code(s): 005735753, 328044149 ICD Code: D72.829 - ELEVATED WHITE BLOOD CELL COUNT, UNSPECIFIED Status: Acute Qualifiers: Leukocytosis type: unspecified Qualified Code(s): D72.829 - Elevated white blood cell count, unspecified (6) Cellulitis SNOMED Code(s): 860193921 ICD Code: L03.90 - CELLULITIS, UNSPECIFIED Status: Acute Qualifiers: Site of cellulitis of extremity: toe (7) Gout attack SNOMED Code(s): 154477549 ICD Code: M10.9 - GOUT, UNSPECIFIED Status: Acute Qualifiers: Gout site: toe (8) Toe infection SNOMED Code(s): 075217764 ICD Code: L08.9 - LOCAL INFECTION OF THE SKIN AND SUBCUTANEOUS TISSUE, UNSP Status: Acute (9) CKD (chronic kidney disease) SNOMED Code(s): 522173020 ICD Code: N18.9 - CHRONIC KIDNEY DISEASE, UNSPECIFIED Status: Chronic Qualifiers: Chronic kidney disease stage: stage 4 (severe) Qualified Code(s): N18.4 - Chronic kidney disease, stage 4 (severe) (10) WEN (acute kidney injury) SNOMED Code(s): 11835111, 67067588 ICD Code: N17.9 - ACUTE KIDNEY FAILURE, UNSPECIFIED Status: Acute (11) Palliative care encounter SNOMED Code(s): 555274333, 051181425 ICD Code: Z51.5 - ENCOUNTER FOR PALLIATIVE CARE Status: Acute (12) Hypothyroidism SNOMED Code(s): 51604752 ICD Code: E03.9 - HYPOTHYROIDISM, UNSPECIFIED Status: Chronic Priority: Medium Problem Details: cont. levothyroxine - Patient Summary/Data Consults: Consultations 12/23/20 10:33 OT Evaluation and Treatment [CONS] Routine Please Evaluate and Treat. OT Reason for Consult: ADL's This query below is only for informational purposes and is not editable. Admission Diagnosis/Problem: Cellulitis PT Evaluation and Treatment [CONS] Routine Please Evaluate and Treat. PT Reason for Consult: Ambulation This query below is only for informational purposes and is not editable. Admission Diagnosis/Problem: Cellulitis 12/24/20 08:43 Consult to Physician [CONS] Routine Consulting Provider: Wasemiller,Chalo Courtesy Call Completed to Consulting Physician: Yes - Discharge Plan *PRESCRIPTION DRUG MONITORING PROGRAM REVIEWED*: Not Applicable *COPY OF PRESCRIPTION DRUG MONITORING REPORT IN PATIENT FOSTER: Not Applicable Prescriptions/Med Rec: clindamycin HCL [Cleocin] 600 mg PO Q12H 6 Days #12 cap Cefdinir [Omnicef] 300 mg PO DAILY@1800 2 Days #4 cap predniSONE 20 mg PO BID@0800,1800 1 Days #1 tablet Home Medications: Home Meds Levothyroxine [Synthroid] 50 mcg PO ACBREAKFAST 12/09/14 [History] Metoprolol Succinate [Toprol Xl] 100 mg PO DAILY 12/09/14 [History] Pantoprazole [ProTONIX] 40 mg PO 0600 #30 tab.cr 12/12/14 [Rx] Furosemide [Lasix] 20 mg PO DAILY 11/10/16 [History] Febuxostat [Uloric] 40 mg PO DAILY 03/14/19 [History] Amoxicillin/Potassium Clav [Augmentin 875-125 Tablet] 1 tab PO BID 12/15/20 [History] Celecoxib [CeleBREX] 200 mg PO BID 12/15/20 [History] Isosorbide Mononitrate [Isosorbide Mononitrate ER] 30 mg PO DAILY 12/15/20 [History] Rivaroxaban [Xarelto] 15 mg PO WITHDINNER 12/15/20 [History] traMADol [Ultram] 50 mg PO Q6H PRN 12/15/20 [History] A,C,E/Zinc/Sod Lisbeth/Talha/Lutein [Eye Multivitamin-Lutein Tablet] 1 tab PO DAILY 12/16/20 [History] Cholecalciferol (Vitamin D3) [Vitamin D3] 25 mcg PO BID 12/16/20 [History] Cyanocobalamin (Vitamin B-12) [Vitamin B-12] 500 mcg PO DAILY 12/16/20 [History] Mineral Oil, Light/Mineral Oil [Soothe Xp Eye Drops] 1 drop EYEBOTH QID 12/16/20 [History] Sennosides/Docusate Sodium [Senna-S] 2 tab PO BID 12/16/20 [History] polyethylene glycoL 3350 [MiraLAX] 17 gm PO DAILY 12/16/20 [History] Cefdinir [Omnicef] 300 mg PO DAILY@1800 2 Days #4 cap 12/25/20 [Rx] clindamycin HCL [Cleocin] 600 mg PO Q12H 6 Days #12 cap 12/25/20 [Rx] predniSONE 20 mg PO BID@0800,1800 1 Days #1 tablet 12/25/20 [Rx] Forms: ED Department Discharge Referrals: Piero Waddell MD [Primary Care Provider] - - Discharge Summary/Plan Comment DC Time >30 min.: No - General Info Date of Service: 12/25/20 Admission Dx/Problem (Free Text: Pain, swelling, erythema of right great toe and foot status post toenail removal Subjective Update: Patient states that she is ambulating better but still has some pain in her foot however, she feels that the foot feels and looks much better. Functional Status: Reports: Pain Controlled, Tolerating Diet, Ambulating, Urinating - Review of Systems General: Reports: Weakness HEENT: Reports: No Symptoms Pulmonary: Reports: No Symptoms Cardiovascular: Reports: No Symptoms Gastrointestinal: Reports: No Symptoms Genitourinary: Reports: No Symptoms Musculoskeletal: Reports: Foot Pain Skin: Reports: Other (Erythema, edema left foot and left great toe) Neurological: Reports: Weakness Psychiatric: Reports: No Symptoms - Patient Data Vitals - Most Recent: Last Vital Signs Temp 36.7 C 12/25/20 08:00 Pulse 62 12/25/20 08:32 Resp 16 12/25/20 08:00 BP 162/83 H 12/25/20 08:32 Pulse Ox 99 12/25/20 08:00 Weight - Most Recent: 66.088 kg I&O - Last 24 hours: Intake & Output 12/24/20 12/25/20 12/25/20 22:59 06:59 14:59 Intake Total 200 Output Total 150 400 Balance -150 -200 Med Orders - Current: Current Medications Discontinued Medications Acetaminophen (Acetaminophen 500 Mg Tab) 500 mg PO Q4H PRN PRN Reason: Fever Hydrocodone Bitart/Acetaminophen (Acetaminophen/Hydrocodone 325-5 Mg Tab) 1 tab PO Q4H PRN PRN Reason: Pain (moderate 4-6) Last Admin: 12/25/20 08:31 Dose: 1 tab Documented by: Bisacodyl (Bisacodyl 10 Mg Supp) 10 mg RECTAL ONETIME ONE Stop: 12/17/20 12:31 Last Admin: 12/17/20 13:32 Dose: Not Given Documented by: Cefdinir (Cefdinir 300 Mg Cap) 300 mg PO DAILY@1800 [facility] Stop: 12/31/20 23:59 Last Admin: 12/22/20 18:16 Dose: 300 mg Documented by: Cefdinir (Cefdinir 300 Mg Cap) 300 mg PO DAILY@1800 [facility] Last Admin: 12/24/20 17:06 Dose: 300 mg Documented by: Ceftriaxone Sodium (Ceftriaxone 1 Gm Vial) 1 gm IVPUSH Q24H [facility] Last Admin: 12/21/20 21:30 Dose: 1 gm Documented by: Celecoxib (Celecoxib 200 Mg Cap) 200 mg PO BID [facility] Last Admin: 12/25/20 08:32 Dose: 200 mg Documented by: Clindamycin HCl (Clindamycin Hcl 150 Mg Cap) 600 mg PO Q12H [facility] Last Admin: 12/25/20 06:29 Dose: 600 mg Documented by: Docusate Sodium (Docusate Sodium 100 Mg Cap) 200 mg PO BID [facility] Last Admin: 12/16/20 09:10 Dose: 200 mg Documented by: Febuxostat (Febuxostat 40 Mg Tab) 40 mg PO DAILY [facility] Last Admin: 12/25/20 08:33 Dose: 40 mg Documented by: Sodium Chloride (Normal Saline) 1,000 mls @ 125 mls/hr IV ASDIRECTED [facility] Last Admin: 12/16/20 07:47 Dose: 125 mls/hr Documented by: Ceftriaxone Sodium 1 gm/ (Sodium Chloride) 50 mls @ 200 mls/hr IV NOW STA Stop: 12/15/20 23:08 Last Admin: 12/15/20 23:35 Dose: 200 mls/hr Documented by: Ceftriaxone Sodium 1 gm/ (Sodium Chloride) 50 mls @ 200 mls/hr IV Q24H [facility] Clindamycin/Sodium Chloride (600 mg/ Premix) 50 mls @ 150 mls/hr IV Q8H [facility] Stop: 12/20/20 23:59 Last Admin: 12/20/20 17:24 Dose: 100 mls/hr Documented by: Isosorbide Mononitrate (Isosorbide Mononitrate 30 Mg Tab.Er) 30 mg PO DAILY [facility] Last Admin: 12/25/20 08:32 Dose: 30 mg Documented by: Ketorolac Tromethamine (Ketorolac 30 Mg/Ml Sdv) 15 mg IVPUSH ONETIME ONE Stop: 12/15/20 22:47 Last Admin: 12/15/20 23:30 Dose: 15 mg Documented by: Levothyroxine Sodium (Levothyroxine 50 Mcg Tab) 50 [facility]cg [facility] Levothyroxine Sodium (Levothyroxine 50 Mcg Tab) 50 mcg PO DAILY@0600 [facility] Last Admin: 12/25/20 06:28 Dose: 50 mcg Documented by: Metoprolol Succinate (Metoprolol Succinate 100 Mg Tab.Er) 100 mg PO DAILY [facility] Last Admin: 12/25/20 08:32 Dose: 100 mg Documented by: Morphine Sulfate (Morphine 2 Mg/Ml Syringe) 2 mg IVPUSH ONETIME ONE Stop: 12/15/20 22:47 Last Admin: 12/15/20 23:32 Dose: 2 mg Documented by: Morphine Sulfate (Morphine 2 Mg/Ml Syringe) 2 mg IVPUSH Q2H PRN PRN Reason: Pain Ondansetron HCl (Ondansetron 4 Mg/2 Ml Sdv) 4 mg IV Q4H PRN PRN Reason: Nausea/Vomiting Last Admin: 12/17/20 11:45 Dose: 4 mg Documented by: Pantoprazole Sodium (Pantoprazole 40 Mg Tab.Cr) 40 mg PO [facility] Last Admin: 12/16/20 06:43 Dose: Not Given Documented by: Pantoprazole Sodium (Pantoprazole 40 Mg Tab.Cr) Confirm Administered Dose 40 mg .ROUTE .STK-MED ONE Stop: 12/16/20 05:28 Last Admin: 12/16/20 05:34 Dose: Not Given Documented by: Pantoprazole Sodium (Pantoprazole 40 Mg Tab.Cr) 40 mg PO DAILY@0600 [facility] Last Admin: 12/25/20 06:27 Dose: 40 mg Documented by: Prednisone (Prednisone 20 Mg Tab) 20 mg PO BID [facility] Last Admin: 12/20/20 21:52 Dose: 20 mg Documented by: Prednisone (Prednisone 20 Mg Tab) 20 mg PO BID@0800,1800 [facility] Last Admin: 12/25/20 08:31 Dose: 20 mg Documented by: Rivaroxaban (Rivaroxaban 15 Mg Tab) 15 mg PO WITHDINNER [facility] Last Admin: 12/24/20 17:05 Dose: 15 mg Documented by: Saccharomyces Boulardii (Saccharomyces Boulardii (Probiotic) 250 Mg Cap) 250 mg PO BID [facility] Last Admin: 12/25/20 08:32 Dose: 250 mg Documented by: Senna/Docusate Sodium (Docusate Sodium/Sennosides 50-8.6 Mg Tab) 1 tab PO BID PRN PRN Reason: Constipation Senna/Docusate Sodium (Docusate Sodium/Sennosides 50-8.6 Mg Tab) 2 tab PO BID [facility] Last Admin: 12/25/20 08:33 Dose: Not Given Documented by: Sodium Chloride (Sodium Chloride 0.9% 10 Ml Syringe) 10 ml FLUSH ASDIRECTED PRN PRN Reason: Keep Vein Open Last Admin: 12/22/20 21:32 Dose: 10 ml Documented by: Comments:: Patient was sitting in the chair next to the window, eating breakfast, awake, alert, interactive, pleasant - Exam Quality Assessment: Reports: Supplemental Oxygen, DVT Prophylaxis, Skin Breakdown General: Reports: Alert, Oriented, Cooperative, No Acute Distress HEENT: Reports: EOMI, Other (Chronic left eye blindness) Lungs: Reports: Crackles Cardiovascular: Reports: Regular Rate, Regular Rhythm, Murmurs GI/Abdominal Exam: Normal Bowel Sounds, Soft, Non-Tender Extremities: Pedal Edema, Joint Swelling, Redness Skin: Reports: Warm, Dry, Intact Wound/Incisions: Reports: Healing Well, No Drainage Neurological: Reports: No New Focal Deficit Psy/Mental Status: Reports: Alert, Normal Affect, Normal Mood
== END 2020-12-25 10:50 | disposition home health service (06) | DRG 603 ==
LOC: FB.ED 22:00 → FB.MS 12-16 00:16
PROVIDERS: ADMIT Emergency Medicine; ATTEND Student in an Organized Health Care Education/Training Program
PROC: 05HY33Z Insertion of Infusion Device into Upper Vein, Percutaneous Approach (ICD-10-PCS; principal; 2020-12-17)
DX: L03.116 Cellulitis of left lower limb (principal); N39.0 Urinary tract infection, site not specified; L03.031 Cellulitis of right toe; I48.20 Chronic atrial fibrillation, unspecified; M10.9 Gout, unspecified; N17.9 Acute kidney failure, unspecified; I48.91 Unspecified atrial fibrillation; N18.4 Chronic kidney disease, stage 4 (severe); I10 Essential (primary) hypertension; N30.00 Acute cystitis without hematuria; M00.9 Pyogenic arthritis, unspecified; M19.90 Unspecified osteoarthritis, unspecified site; M1A.9XX0 Chronic gout, unspecified, without tophus (tophi); I12.9 Hypertensive chronic kidney disease with stage 1 through stage 4 chronic kidney disease, or unspecified chronic kidney disease; E05.90 Thyrotoxicosis, unspecified without thyrotoxic crisis or storm; Z51.5 Encounter for palliative care; Z20.822 Contact with and (suspected) exposure to COVID-19; E03.9 Hypothyroidism, unspecified; K21.9 Gastro-esophageal reflux disease without esophagitis; M54.9 Dorsalgia, unspecified; G89.29 Other chronic pain; H54.7 Unspecified visual loss; I25.10 Atherosclerotic heart disease of native coronary artery without angina pectoris; E78.00 Pure hypercholesterolemia, unspecified; K57.90 Diverticulosis of intestine, part unspecified, without perforation or abscess without bleeding; H54.40 Blindness, one eye, unspecified eye; E86.0 Dehydration; D72.829 Elevated white blood cell count, unspecified; T38.0X5A Adverse effect of glucocorticoids and synthetic analogues, initial encounter; Z79.890 Hormone replacement therapy; Z79.899 Other long term (current) drug therapy; Z91.012 Allergy to eggs; Z88.1 Allergy status to other antibiotic agents; Z88.8 Allergy status to other drugs, medicaments and biological substances; Z95.0 Presence of cardiac pacemaker; Z90.49 Acquired absence of other specified parts of digestive tract; Z90.710 Acquired absence of both cervix and uterus; Z86.718 Personal history of other venous thrombosis and embolism; Z79.01 Long term (current) use of anticoagulants; Z87.01 Personal history of pneumonia (recurrent)
CPT/HCPCS: 36415; 80053; 83605; 85025; 86140; 87040 ×2; 93005; 93010; 96374; 96375; 99284 ×2; J0696; J1885; J2270; J7030; U0002; 36410; 80048; 81001; 85651; 87086; 97161-GP; 97165-GO; A9270-GY; J2405; J3490; J7512